=== PATIENT | female | born 1960 | race Two or more races ===

== ENCOUNTER 2020-03-18 12:44 | Outpatient (REF) | payer OTHER, SELFPAY | END 2020-03-18 12:45 | disposition home or self-care (01) | LOC: HO.LAB 12:44 | PROVIDERS: PCP Internal Medicine; Visit Provider Internal Medicine | DX: Z20.828 Contact with and (suspected) exposure to other viral communicable diseases (principal) | CPT/HCPCS: 36415; 87635 ==

== ENCOUNTER 2020-03-29 10:34 | Outpatient (REF) | payer OTHER, SELFPAY ==
[2020-03-29 11:27] LABS: MANUAL DIFF FLAG NO
[2020-03-29 11:30] LABS: Basophils Percent Auto 0.6 % (0-2); Eosinophils Absolute Auto 0.1 X10*3/uL (0.0-0.4); Eosinophils Percent Auto 1.7 % (0-4); Hematocrit 41.2 % (37-47); Hemoglobin 14.2 g/dl (12.0-16.0); Imm Gran Abs Auto 0.02 X10*3/uL (0.00-0.03); Imm Gran Pct Auto 0.3 % (0.0-0.4); Lymphocytes Absolute Auto 2.4 X10*3/uL (1.2-4.9); Lymphocytes Percent Auto 36.9 % (20-40); Mean Corpuscular HGB Conc 34.5 g/dl (31.0-35.0); Mean Corpuscular Hemoglobin 30.7 pg (27.0-33.0); Mean Corpuscular Volume 89.2 fL (80-98); Mean Platelet Volume 11.4 fL (9.4-12.3); Monocytes Absolute Auto 0.3 X10*3/uL (0.1-1.2); Monocytes Percent Auto 5.2 % (2-11); Neutrophils Absolute Auto 3.6 X10*3/uL (2.0-8.3); Neutrophils Percent Auto 55.3 % (45-73); Platelet Count 300 X10*3/uL (160-400); Red Blood Count 4.62 X10*6/uL (4.20-5.50); Red Cell Distribution Width 12.5 % (11.0-16.0); White Blood Count 6.6 X10*3/uL (4.8-10.8)
[2020-03-29 11:50] LABS: Estimated Average Glucose 105 mg/dL; Hemoglobin A1C 126.7674 umol/L; Hemoglobin A1c % 5.3 %
[2020-03-29 11:53] LABS: Alanine Aminotransferase 17 U/L (0-31); Albumin Level 4.6 g/dL (3.5-5.0); Alkaline Phosphatase 79 U/L (39-117); Anion Gap 13 (12-20); Aspartate Amino Transferase 15 U/L (5-31); Bilirubin Total 0.6 mg/dL (0.0-1.0); Blood Urea Nitrogen 14 mg/dL (9-16); Calcium 9.5 mg/dL (8.4-10.2); Carbon Dioxide 24 mmol/L (22-29); Chloride 107 mmol/L (96-108); Cholesterol 199 mg/dL; Estimated Glomerular Filt Rate > 60; Glucose Fasting 101 mg/dL (60-99); HDL Cholesterol 46 mg/dL; LDL Cholesterol Calculated 120 mg/dl; Potassium 4.1 mmol/l (3.3-5.1); Sodium 140 mmol/L (135-145); Total Protein 7.5 g/dL (6.5-8.0); Triglycerides 166 mg/dL
[2020-03-29 12:14] LABS: T4 Thyroxine 5.8 ug/dL (4.5-12.0); Thyroid Stimulating Hormone 3.33 mIU/mL (0.32-4.0)
[2020-03-29 18:23] LABS: Folate 9.5 ng/mL (> or = 4.0); Vitamin B12 286 pg/mL (200-900)
== END 2020-03-29 10:35 | disposition home or self-care (01) ==
LOC: HO.LAB 10:34
PROVIDERS: PCP Internal Medicine; Visit Provider Internal Medicine
DX: Z00.00 Encounter for general adult medical examination without abnormal findings (principal); E66.9 Obesity, unspecified; J45.909 Unspecified asthma, uncomplicated; F32.9 Major depressive disorder, single episode, unspecified; R73.01 Impaired fasting glucose; E78.00 Pure hypercholesterolemia, unspecified; G25.0 Essential tremor
CPT/HCPCS: 36415; 80053; 80061; 82306; 82607; 82746; 83036; 84436; 84443; 85025

== ENCOUNTER 2020-04-20 16:53 | Outpatient (REF) | payer OTHER, SELFPAY ==
--- NOTE | 2020-04-20 | MM_ITS ---
EXAMINATION: MM SCREENING DIGITAL BREAST TOMOSYNTHESIS, BILATERAL CLINICAL INFORMATION: Screening. Asymptomatic. The lifetime risk of breast cancer based on the Tyrer-Cuzick Model is 6.8%. COMPARISON: Mammography: September 04, 2018 and studies dating back to April 20, 2014 TECHNIQUE: Digital breast tomosynthesis is performed in both the craniocaudal and mediolateral oblique views along with computer-aided detection (CAD). Synthesized 2D images are generated from the tomosynthesis. FINDINGS: The breasts are almost entirely fatty (ACR BI-RADS breast composition Category a). There are no significant masses, abnormal calcifications, or other abnormalities. MM/MM tomosynthesis screening BI IMPRESSION: There are no significant changes from prior study. ASSESSMENT: BI-RADS 1: Negative RECOMMENDATION: Routine annual mammography screening. This patient's information was entered into a reminder system with a target due date for their next mammogram.
== END 2020-04-20 16:54 | disposition home or self-care (01) ==
LOC: HO.MAMMO 16:53
PROVIDERS: Visit Provider Internal Medicine
DX: Z12.31 Encounter for screening mammogram for malignant neoplasm of breast (principal)
CPT/HCPCS: 77063; 77067

== ENCOUNTER 2020-07-14 13:03 | Outpatient (REF) | payer OTHER, SELFPAY | END 2020-07-14 13:04 | disposition home or self-care (01) | LOC: HO.LAB 13:03 | PROVIDERS: Visit Provider Internal Medicine | DX: Z20.822 Contact with and (suspected) exposure to COVID-19 (principal) | CPT/HCPCS: 36415; C9803; U0003 ==

== ENCOUNTER 2020-09-29 13:18 | Outpatient (REF) | payer OTHER, SELFPAY | END 2020-09-29 13:19 | disposition home or self-care (01) | LOC: HO.LAB 13:18 | PROVIDERS: Visit Provider Internal Medicine | DX: Z20.822 Contact with and (suspected) exposure to COVID-19 (principal) | CPT/HCPCS: C9803; U0003; U0005 ==

== ENCOUNTER 2021-04-25 11:16 | Outpatient (REF) | payer OTHER, SELFPAY ==
--- NOTE | ~2021-04-25 | XR_ITS ---
EXAMINATION: XR KNEE, LEFT CLINICAL INFORMATION: Left knee pain. COMPARISON: Upright frontal views of both knees and patellofemoral view of the left knee done on 12/18/2019. TECHNIQUE: Two views of the left knee. FINDINGS: The bony alignments are intact. The cortices are intact. No significant joint space narrowing is noted at the medial and lateral compartment. Mild marginal osteophyte formation is noted at the superior pole of the patella consistent with mild osteoarthrosis. No evidence of any joint effusion. The soft tissues are remarkable for multiple radiopaque foreign bodies, similar to prior study. XR/XR knee LT 2V IMPRESSION: Mild patellofemoral osteoarthrosis. No significant change since 12/18/2019.
== END 2021-04-25 11:17 | disposition home or self-care (01) ==
LOC: HO.XRAY 11:16
PROVIDERS: PCP Internal Medicine; Visit Provider Internal Medicine
DX: M25.562 Pain in left knee (principal)
CPT/HCPCS: 73560

== ENCOUNTER 2021-04-27 07:28 | Outpatient (REF) | payer OTHER, SELFPAY ==
--- NOTE | ~2021-04-27 | MM_ITS ---
EXAMINATION: MM SCREENING DIGITAL BREAST TOMOSYNTHESIS, BILATERAL CLINICAL INFORMATION: Screening. Asymptomatic. The lifetime risk of breast cancer based on the Tyrer-Cuzick Model is 6%. COMPARISON: Mammography: 04/20/2020, 09/04/2018, 08/16/2017 TECHNIQUE: Digital breast tomosynthesis is performed in both the craniocaudal and mediolateral oblique views along with computer-aided detection (CAD). Synthesized 2D images are generated from the tomosynthesis. FINDINGS: There are scattered areas of fibroglandular density (ACR BI-RADS breast composition Category b). There are no significant masses, abnormal calcifications, or other abnormalities. Parenchymal pattern is similar to prior studies. No developing density. The axilla and skin contours are unremarkable. MM/MM tomosynthesis screening BI IMPRESSION: No mammographic evidence of malignancy. ASSESSMENT: BI-RADS 1: Negative RECOMMENDATION: Routine annual mammography screening. This patient's information was entered into a reminder system with a target due date for their next mammogram.
[2021-04-27 07:47] LABS: MANUAL DIFF FLAG NO
[2021-04-27 08:29] LABS: Basophils Percent Auto 0.5 % (0-2); Eosinophils Absolute Auto 0.2 X10*3/uL (0.0-0.4); Eosinophils Percent Auto 3.5 % (0-4); Hematocrit 40.9 % (37.0-47.0); Imm Gran Abs Auto 0.02 X10*3/uL (0.00-0.03); Imm Gran Pct Auto 0.3 % (0.0-0.4); Lymphocytes Absolute Auto 2.4 X10*3/uL (1.2-4.9); Lymphocytes Percent Auto 37.4 % (20-40); Mean Corpuscular HGB Conc 34.2 g/dl (31.0-35.0); Mean Corpuscular Hemoglobin 30.5 pg (27.0-33.0); Mean Corpuscular Volume 89.1 fL (80.0-98.0); Mean Platelet Volume 10.9 fL (9.4-12.3); Monocytes Absolute Auto 0.4 X10*3/uL (0.1-1.2); Monocytes Percent Auto 5.9 % (2-11); Neutrophils Absolute Auto 3.4 x10*3/uL (2.0-8.3); Neutrophils Percent Auto 52.4 % (45-73); Platelet Count 306 X10*3/uL (160-400); Red Blood Count 4.59 X10*6/uL (4.20-5.50); Red Cell Distribution Width 12.6 % (11.0-16.0); White Blood Count 6.5 X10*3/uL (4.8-10.8)
[2021-04-27 08:52] LABS: Alanine Aminotransferase 26 U/L (0-31); Albumin Level 4.3 g/dL (3.5-5.0); Alkaline Phosphatase 79 U/L (39-117); Anion Gap 11 (12-20); Aspartate Amino Transferase 18 U/L (5-31); Bilirubin Total 0.7 mg/dL (0.0-1.0); Blood Urea Nitrogen 11 mg/dL (9-16); Calcium 9.3 mg/dL (8.4-10.2); Carbon Dioxide 24 mmol/L (22-29); Chloride 110 mmol/L (96-108); Cholesterol 181 mg/dL; Estimated Glomerular Filt Rate > 60; Glucose Random 127 mg/dL (60-115); HDL Cholesterol 36 mg/dL; LDL Cholesterol Calculated 116 mg/dl; Potassium 4.2 mmol/L (3.3-5.1); Sodium 141 mmol/L (135-145); Total Protein 7.5 g/dL (6.5-8.0); Triglycerides 147 mg/dL
[2021-04-27 09:03] LABS: Estimated Average Glucose 108 mg/dL; Hemoglobin A1c % 5.4 %
[2021-04-27 09:15] LABS: Free T4 (Free Thyroxine) 0.94 ng/dL (0.71-1.85); Vitamin D 25-OH Total 13.5 ng/mL (>30)
[2021-04-27 09:30] LABS: Folate 10.9 ng/mL (> or = 4.0); Vitamin B12 277 pg/mL (200-900)
== END 2021-04-27 07:29 | disposition home or self-care (01) ==
LOC: HO.MAMMO 07:28
PROVIDERS: PCP Internal Medicine; Visit Provider Internal Medicine
DX: Z12.31 Encounter for screening mammogram for malignant neoplasm of breast (principal); E78.00 Pure hypercholesterolemia, unspecified; R73.02 Impaired glucose tolerance (oral)
CPT/HCPCS: 36415; 77063; 77067; 80053; 80061; 82306; 82607; 82746; 83036; 84439; 84443; 85025

== ENCOUNTER → 2021-05-05 12:14 | Outpatient (BNVA) | payer OTHER, SELFPAY | PROVIDERS: PCP Internal Medicine; Visit Provider Orthopaedic Surgery | DX: M25.562 Pain in left knee (principal) | CPT/HCPCS: 20610; 99212; J1100 ==

== ENCOUNTER 2021-08-05 08:54 | Outpatient (REF) | payer OTHER, SELFPAY ==
--- NOTE | ~2021-08-05 | XR_ITS ---
EXAMINATION: XR RIBS, LEFT CLINICAL INFORMATION: Chest pain COMPARISON: Chest x-ray of October 31, 2018 TECHNIQUE: PA chest and 4 view left ribs. FINDINGS: There is no evidence of acute parenchymal disease, pneumothorax, or pleural effusion. Heart normal size. No evidence of pulmonary edema. There is no evidence of an acute displaced left rib fracture. No lytic or sclerotic lesions are identified. XR/XR ribs LT min 3V w CXR1V IMPRESSION: No acute parenchymal disease within the chest. No acute displaced left rib fracture or destructive bony lesion.
== END 2021-08-05 08:55 | disposition home or self-care (01) ==
LOC: HO.XRAY 08:54
PROVIDERS: PCP Internal Medicine; Visit Provider Internal Medicine
DX: R07.9 Chest pain, unspecified (principal)
CPT/HCPCS: 71101

== ENCOUNTER → 2021-08-22 09:29 | Outpatient (BNVA) | payer OTHER, SELFPAY | PROVIDERS: PCP Internal Medicine; Visit Provider Physician Assistant | DX: M17.12 Unilateral primary osteoarthritis, left knee (principal); M25.562 Pain in left knee | CPT/HCPCS: 20610; 99212; J1020 ==

== ENCOUNTER → 2021-12-01 11:09 | Outpatient (BNVA) | payer OTHER, SELFPAY | PROVIDERS: PCP Internal Medicine; Referring Provider Internal Medicine; Visit Provider Physician Assistant | DX: Z12.11 Encounter for screening for malignant neoplasm of colon (principal); Z79.899 Other long term (current) drug therapy | CPT/HCPCS: 99202; 99212 ==

== ENCOUNTER 2022-01-26 12:21 | Outpatient (REF) | payer OTHER, SELFPAY ==
--- NOTE | ~2022-01-26 | XR_ITS ---
EXAMINATION: XR HAND WRIST LEFT CLINICAL INFORMATION: Pain of the left wrist COMPARISON: None TECHNIQUE: Left hand and wrist, 4 views FINDINGS: Bones have normal alignment with hand and wrist. No fracture or subluxation. No focal soft tissue swelling. There appears to be negligible osteophyte formation and small ossicle of the first carpometacarpal joint. Small osteophytes are present at the mildly degenerated index finger metacarpophalangeal joint joint. Otherwise, the metacarpophalangeal and proximal interphalangeal joints are unremarkable. There are very small osteophytes at multiple distal interphalangeal joints. No erosions or periostitis. XR/XR hand wrist LT IMPRESSION: * No acute osseous injury in the left hand or wrist. * Mild osteoarthrosis at several joints, including thumb interphalangeal joint, index finger MCP joint and multiple DIP joints. No evidence of an inflammatory arthropathy.
== END 2022-01-26 12:22 | disposition home or self-care (01) ==
LOC: HO.XRAY 12:21
PROVIDERS: PCP Internal Medicine; Visit Provider Internal Medicine
DX: M25.532 Pain in left wrist (principal); M72.2 Plantar fascial fibromatosis
CPT/HCPCS: 73110; 73130

== ENCOUNTER 2022-04-12 08:30 | Outpatient (REF) | payer OTHER, SELFPAY ==
[2022-04-12 08:40] LABS: MANUAL DIFF FLAG NO
[2022-04-12 09:04] LABS: Basophils Percent Auto 0.5 % (0-2); Eosinophils Absolute Auto 0.1 X10*3/uL (0.0-0.4); Hematocrit 40.8 % (37.0-47.0); Hemoglobin 14.1 g/dl (12.0-16.0); Imm Gran Abs Auto 0.03 X10*3/uL (0.00-0.03); Imm Gran Pct Auto 0.4 % (0.0-0.4); Lymphocytes Absolute Auto 2.8 X10*3/uL (1.2-4.9); Lymphocytes Percent Auto 35.2 % (20-40); Mean Corpuscular HGB Conc 34.6 g/dl (31.0-35.0); Mean Corpuscular Hemoglobin 30.3 pg (27.0-33.0); Mean Corpuscular Volume 87.7 fL (80.0-98.0); Mean Platelet Volume 10.6 fL (9.4-12.3); Monocytes Absolute Auto 0.5 X10*3/uL (0.1-1.2); Monocytes Percent Auto 5.9 % (2-11); Neutrophils Absolute Auto 4.5 x10*3/uL (2.0-8.3); Platelet Count 324 X10*3/uL (160-400); Red Blood Count 4.65 X10*6/uL (4.20-5.50); White Blood Count 7.9 X10*3/uL (4.8-10.8)
[2022-04-12 09:08] LABS: Estimated Average Glucose 105 mg/dL; Hemoglobin A1c % 5.3 %
[2022-04-12 09:32] LABS: Alanine Aminotransferase 12 U/L (0-31); Albumin Level 4.5 g/dL (3.5-5.0); Alkaline Phosphatase 79 U/L (39-117); Anion Gap 14 (12-20); Aspartate Amino Transferase 14 U/L (5-31); Bilirubin Total 0.6 mg/dL (0.0-1.0); Blood Urea Nitrogen 13 mg/dL (9-16); Calcium 9.4 mg/dL (8.4-10.2); Carbon Dioxide 24 mmol/L (22-29); Chloride 107 mmol/L (96-108); Cholesterol 206 mg/dL; Estimated Glomerular Filt Rate > 60; Glucose Random 115 mg/dL (60-115); HDL Cholesterol 44 mg/dL; LDL Cholesterol Calculated 125 mg/dl; Potassium 4.2 mmol/L (3.3-5.1); Sodium 141 mmol/L (135-145); Total Protein 7.6 g/dL (6.5-8.0); Triglycerides 187 mg/dL
[2022-04-12 09:48] LABS: Free T4 (Free Thyroxine) 0.99 ng/dL (0.71-1.85); Vitamin D 25-OH Total 12.9 ng/mL (>30)
[2022-04-12 10:38] LABS: Folate 11.7 ng/mL (> or = 4.0); Vitamin B12 214 pg/mL (200-900)
== END 2022-04-12 08:31 | disposition home or self-care (01) ==
LOC: HO.LAB 08:30
PROVIDERS: PCP Internal Medicine; Visit Provider Internal Medicine
DX: R73.02 Impaired glucose tolerance (oral) (principal); E55.9 Vitamin D deficiency, unspecified; K21.9 Gastro-esophageal reflux disease without esophagitis; E78.00 Pure hypercholesterolemia, unspecified
CPT/HCPCS: 36415; 80053; 80061; 82306; 82607; 82746; 83036; 84439; 84443; 85025

== ENCOUNTER 2022-04-17 07:48 | Day surgery (SDC) | payer OTHER, SELFPAY ==
[2022-04-12 15:10] VITALS: BMI 33.5
[2022-04-17 08:32] VITALS: BP 127/71; PULSE 59; RESP 16; TEMP 36.2; O2SAT 98
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
--- NOTE | 2022-04-17 08:36 | PM.OP ---
Brief Operative Note Date of Service: 04/17/22 Pre-op diagnosis: Colon cancer screening, intermittent diarrhea and rectal bleeding Family history of colon cancer (Mother-mat aunt and uncle- colon cancer- unknown age or details-this is unclear) Post-op diagnosis: other (Colon polyps, diverticulosis, hemorrhoids) Procedure: COLONOSCOPY TO CECUM WITH BIOPSIES AND SNARE POLYPECTOMY Surgeon: Ambrosio Diaz MD Anesthesia: MAC Was an Head Of Commission Department used for this Procedure?: Yes Head Of Commission Department: Rgio Lazo Estimated blood loss (mL): 0 Pathology: other (A) BX Right Colon (R/O Microscopic Colitis) B) BX Left Colon (R/O Microscopic Colitis) C) Polyp Sigmoid Colon D) Polyps Sigmoid Colon 18cm) Condition: stable Disposition: PACU
--- NOTE | 2022-04-17 08:37 | W.PM.OPN ---
Operative Note Operative Note Date of Service: 04/17/22 Narrative: Pre-op diagnosis: Colon cancer screening, intermittent diarrhea and rectal bleeding Family history of colon cancer (Mother-mat aunt and uncle- colon cancer- unknown age or details-this is unclear) Post-op diagnosis:?other (Colon polyps, diverticulosis, hemorrhoids) Surgeon: Ambrosio Diaz MD Anesthesia:?MAC COLONOSCOPY TILL CECUM WITH BIOPSIES AND SNARE POLYPECTOMY Consent: Indications for the procedure and potential complications of bleeding, perforation, reaction to medications and missed diagnosis were discussed with the patient and informed consent was obtained. Instrument: Olympus PCF H 190 L variable stiffness pediatric colonoscope Monitoring: Vital signs and clinical assessment, intermittent blood pressure monitoring, continuous EKG monitoring, Pulse oximetry and Carbon Dioxide monitoring were done throughout the procedure. Colon withdrawl time was 25 minutes. Procedure: The patient was placed in the left lateral decubitis position and pre-procedure medications were administered. After a digital rectal examination of the ano-rectum, the video colonoscope was inserted into the rectum and advanced through the colon to the cecum. The colonoscope was slowly withdrawn in a retrograde panoramic fashion and the colon mucosa was carefully examined including a retroflexed view of the rectum. Findings and interventions are described below. Procedure Difficulty: Without difficulty Findings: Terminal Ileum: Not evaluated Cecum: Normal Ascending Colon: Normal Transverse Colon: Normal Descending Colon: Moderate diverticulosis Sigmoid Colon: A 10 mm sessile polyp removed with a cold snare. Two 12-15 mm sessile polyps at 18 cms removed with a hot snare. Moderate diverticulosis Rectum: Normal Ano-rectum: Moderate internal hemorrhoids Colon preparation: Good after copious irrigation and fair in the left colon due to adherent stools which could not be flushed off. No large lesion seen, flat and small polyps could be missed. Impression and Post Procedure Diagnosis: Colonoscopy Findings: Three medium sized polyps removed. Random biopsies were obtained from right and left colon to check for microscopic colitis. Moderate diverticulosis seen in the left colon Moderate hemorrhoids on retroflexed exam. Plan: Await pathology results Patient has an appointment on 05/01/22 in the GI Clinic with MEGHA Verdin. Repeat Colonoscopy interval based on path results - in 3 years if polyps are adenomatous and due to fair prep. Above findings were reviewed with the patient and colon polyps and diverticulosis handouts were given in the discharge area
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
[2022-04-17 10:10] VITALS: BP 92/54; PULSE 64; RESP 16; TEMP 36.1; O2SAT 95
[2022-04-17 10:25] VITALS: BP 113/67; PULSE 70; RESP 18; TEMP 36.3; O2SAT 97
[2022-04-17 10:37] VITALS: BP 125/73; PULSE 60; RESP 18; TEMP 36.1; O2SAT 97
== END 2022-04-17 11:22 | disposition home or self-care (01) ==
PROVIDERS: PCP Internal Medicine; Visit Provider Internal Medicine Gastroenterology
PROC: 0DJD8ZZ Inspection of Lower Intestinal Tract, Via Natural or Artificial Opening Endoscopic (ICD-10-PCS; CPT 45378; principal; 2022-04-17 09:20)
DX: Z12.11 Encounter for screening for malignant neoplasm of colon (principal); Z80.0 Family history of malignant neoplasm of digestive organs; D12.5 Benign neoplasm of sigmoid colon; K57.30 Diverticulosis of large intestine without perforation or abscess without bleeding; K64.8 Other hemorrhoids; M79.7 Fibromyalgia; G25.0 Essential tremor; G62.9 Polyneuropathy, unspecified; F20.9 Schizophrenia, unspecified; Z79.51 Long term (current) use of inhaled steroids; Z79.899 Other long term (current) drug therapy; Z87.891 Personal history of nicotine dependence
CPT/HCPCS: 45385; 45380; 88305

== ENCOUNTER → 2022-05-01 10:45 | Outpatient (BNVA) | payer OTHER, SELFPAY | PROVIDERS: PCP Internal Medicine; Visit Provider Physician Assistant | DX: K57.30 Diverticulosis of large intestine without perforation or abscess without bleeding (principal); D36.9 Benign neoplasm, unspecified site | CPT/HCPCS: 99212 ==

== ENCOUNTER 2022-05-15 07:18 | Outpatient (REF) | payer OTHER, SELFPAY ==
--- NOTE | ~2022-05-15 | MM_ITS ---
EXAMINATION: MM SCREENING DIGITAL BREAST TOMOSYNTHESIS, BILATERAL CLINICAL INFORMATION: Screening. Asymptomatic. The lifetime risk of breast cancer based on the Tyrer-Cuzick Model is 7%. COMPARISON: Mammography: 04/27/2021, 04/20/2020, 09/04/2018 TECHNIQUE: Digital breast tomosynthesis is performed in both the craniocaudal and mediolateral oblique views along with computer-aided detection (CAD). Synthesized 2D images are generated from the tomosynthesis. FINDINGS: There are scattered areas of fibroglandular density (ACR BI-RADS breast composition Category b). There are no significant masses, abnormal calcifications, or other abnormalities. Parenchymal pattern is similar to prior studies. There is no developing density or architectural abnormality. The axilla and skin contours are unremarkable. No significant changes. MM/MM tomosynthesis screening BI IMPRESSION: No mammographic evidence of malignancy. ASSESSMENT: BI-RADS 1: Negative RECOMMENDATION: Routine annual mammography screening. This patient's information was entered into a reminder system with a target due date for their next mammogram.
== END 2022-05-15 07:19 | disposition home or self-care (01) ==
LOC: HO.MAMMO 07:18
PROVIDERS: PCP Internal Medicine; Visit Provider Internal Medicine
DX: Z12.31 Encounter for screening mammogram for malignant neoplasm of breast (principal)
CPT/HCPCS: 77063; 77067

== ENCOUNTER 2022-07-26 08:31 | Outpatient (REF) | payer OTHER, SELFPAY ==
[2022-07-26 10:43] LABS: Folate 12.6 ng/mL (> or = 4.0); Vitamin B12 344 pg/mL (200-900)
[2022-07-31 21:08] LABS: Intrinsic Factor Antibodies Negative (Negative)
[2022-08-01 12:38] LABS: Parietal Cell Antibody 21.9 Unit (<=20.0)
== END 2022-07-26 08:32 | disposition home or self-care (01) ==
LOC: HO.LAB 08:31
PROVIDERS: PCP Internal Medicine; Visit Provider Internal Medicine
DX: E53.8 Deficiency of other specified B group vitamins (principal)
CPT/HCPCS: 36415; 82607; 82746; 83516; 86340

== ENCOUNTER 2022-08-14 18:32 | Outpatient (REF) | payer OTHER, SELFPAY ==
[2022-08-15 05:31] LABS: CT PCR NOT DETECTED (Not Detect.); NG PCR NOT DETECTED (Not Detect.)
[2022-08-15 12:30] LABS: BV Int Neg Control Negative (Negative); BV Int Pos Control Positive (Positive)
== END 2022-08-14 18:33 | disposition home or self-care (01) ==
LOC: HO.LAB 18:32
PROVIDERS: Visit Provider Internal Medicine
DX: Z11.3 Encounter for screening for infections with a predominantly sexual mode of transmission (principal); L70.0 Acne vulgaris
CPT/HCPCS: 0353U; 87480; 87510; 87660

== ENCOUNTER 2022-08-14 18:32 | Outpatient (REF) | payer OTHER, SELFPAY ==
[2022-08-18 00:38] LABS: HPV 16 RNA NOT DETECTED (NOT DETECTED); HPV mRNA E6/E7 rflx Detected (Not Detected)
== END 2022-08-14 18:33 | disposition home or self-care (01) ==
LOC: HO.LNP 18:32
PROVIDERS: Visit Provider Internal Medicine
DX: Z01.419 Encounter for gynecological examination (general) (routine) without abnormal findings (principal); Z11.51 Encounter for screening for human papillomavirus (HPV)
CPT/HCPCS: 87624; 87625; 88142

== ENCOUNTER → 2022-09-01 09:28 | Outpatient (BNVA) | payer OTHER, SELFPAY | PROVIDERS: PCP Internal Medicine; Visit Provider Surgery | DX: L72.0 Epidermal cyst (principal) | CPT/HCPCS: 99202 ==

== ENCOUNTER 2022-09-22 09:59 | Outpatient (REF) | payer OTHER, SELFPAY | END 2022-09-22 10:00 | disposition home or self-care (01) | LOC: HO.LNP 09:59 | PROVIDERS: PCP Internal Medicine; Visit Provider Surgery | DX: L72.0 Epidermal cyst (principal); N60.82 Other benign mammary dysplasias of left breast; Z79.899 Other long term (current) drug therapy | CPT/HCPCS: 11402; 88304 ==

== ENCOUNTER → 2022-09-29 10:05 | Outpatient (BNVA) | payer OTHER, SELFPAY | PROVIDERS: PCP Internal Medicine; Visit Provider Surgery | DX: L72.0 Epidermal cyst (principal) | CPT/HCPCS: 99212 ==

== ENCOUNTER 2022-10-11 11:05 | Outpatient (REF) | payer OTHER, SELFPAY | END 2022-10-11 11:06 | disposition home or self-care (01) | LOC: HO.LNP 11:05 | PROVIDERS: PCP Internal Medicine; Visit Provider Obstetrics & Gynecology | DX: R87.610 Atypical squamous cells of undetermined significance on cytologic smear of cervix (ASC-US) (principal); R87.810 Cervical high risk human papillomavirus (HPV) DNA test positive | CPT/HCPCS: 57454; 88305 ==

== ENCOUNTER → 2022-11-02 10:02 | Outpatient (BNVA) | payer OTHER, SELFPAY | PROVIDERS: PCP Internal Medicine; Visit Provider Obstetrics & Gynecology | DX: R87.610 Atypical squamous cells of undetermined significance on cytologic smear of cervix (ASC-US) (principal); R87.810 Cervical high risk human papillomavirus (HPV) DNA test positive; Z98.890 Other specified postprocedural states | CPT/HCPCS: 99212 ==

== ENCOUNTER 2023-01-11 09:50 | Outpatient (AMB) | payer OTHER, SELFPAY ==
--- NOTE | 2023-01-11 10:10 | AM.OFFVISNUR ---
Intake Intake Visit Reasons: B12 Shot Allergies Fruits Allergy (Unknown, Uncoded 11/02/22 10:34) anaphylaxis Office Meds cyanocobalamin (vitamin B-12) Performing Provider: Viky Kaur MD Administered by: Eugenia Monsivais RN on 01/11/23 10:10 Dose Route Admin Location Lot Number Expiration Date NDC Muffler Mechanic 1,000 mcg IM right deltoid [id number] 08/15/24 15388-273-28 RIVS Coding Diagnoses Assessment & Plan Assessment & Plan Orders: Orders AMB Vitamin B12 Injection Patient Supplied Today E53.8 - Deficiency of other specified B group vitamins
== END 2023-01-11 10:11 | disposition home or self-care (01) ==
PROVIDERS: PCP Internal Medicine; Visit Provider Internal Medicine
DX: E53.8 Deficiency of other specified B group vitamins (principal)
CPT/HCPCS: 96372; J3420

== ENCOUNTER 2023-02-12 09:22 | Outpatient (AMB) | payer OTHER, SELFPAY ==
--- NOTE | 2023-02-12 11:21 | AM.OFFVISNUR ---
Intake Intake Visit Reasons: B12 Shot Allergies Fruits Allergy (Unknown, Uncoded 02/12/23 09:54) anaphylaxis Office Meds cyanocobalamin (vitamin B-12) Performing Provider: Viky Kaur MD Administered by: Eugenia Monsivais RN on 02/12/23 11:21 Dose Route Admin Location Lot Number Expiration Date NDC Door Captain 1,000 mcg IM right deltoid [id number] 08/15/24 23936-496-16 Stance Coding Diagnoses Assessment & Plan Assessment & Plan Orders: Orders AMB Vitamin B12 Injection Patient Supplied Today E53.8 - Deficiency of other specified B group vitamins
== END 2023-02-12 12:54 | disposition home or self-care (01) ==
PROVIDERS: PCP Internal Medicine; Visit Provider Internal Medicine
DX: E53.8 Deficiency of other specified B group vitamins (principal)
CPT/HCPCS: 96372; J3420

== ENCOUNTER 2023-02-27 11:11 | Outpatient (AMB) | payer OTHER, SELFPAY ==
[2023-02-27 11:18] VITALS: BP 140/80; PULSE 77; O2SAT 98; BMI 33.8
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
== END 2023-02-27 12:31 | disposition home or self-care (01) ==
PROVIDERS: PCP Internal Medicine; Visit Provider Internal Medicine
DX: J45.909 Unspecified asthma, uncomplicated (principal); E78.00 Pure hypercholesterolemia, unspecified; K21.9 Gastro-esophageal reflux disease without esophagitis; L20.9 Atopic dermatitis, unspecified; R03.0 Elevated blood-pressure reading, without diagnosis of hypertension
CPT/HCPCS: 99214

== ENCOUNTER 2023-03-15 09:25 | Outpatient (AMB) | payer OTHER, SELFPAY ==
--- NOTE | 2023-03-15 09:32 | AM.OFFVISNUR ---
Intake Intake Visit Reasons: B12 Shot Allergies Fruits Allergy (Unknown, Uncoded 02/27/23 11:19) anaphylaxis Office Meds cyanocobalamin (vitamin B-12) 1,000 mcg/mL injection solution Performing Provider: Viky Kaur MD Performing Location[place] [facility] [place] [facility] Administered by: Akua Anthony RN on 03/15/23 09:32 Dose Route Admin Location Dispensed Lot Number Expiration Date NDC [place] 1,000 mcg IM right deltoid 1 mL [id number] 08/15/24 26960-092-92 [employer] Coding Assessment & Plan Assessment & Plan Orders: Orders AMB Vitamin B12 Injection Patient Supplied Today E53.8 - Deficiency of other specified B group vitamins
== END 2023-03-15 09:42 | disposition home or self-care (01) ==
PROVIDERS: PCP Internal Medicine; Visit Provider Internal Medicine
DX: E53.8 Deficiency of other specified B group vitamins (principal)
CPT/HCPCS: 96372; J3420

== ENCOUNTER 2023-04-05 08:36 | Outpatient (REF) | payer OTHER, SELFPAY ==
[2023-04-05 08:51] LABS: MANUAL DIFF FLAG NO
[2023-04-05 09:04] LABS: Basophils Percent Auto 0.4 % (0-2); Eosinophils Absolute Auto 0.1 X10*3/uL (0.0-0.4); Eosinophils Percent Auto 1.9 % (0-4); Hematocrit 40.6 % (37.0-47.0); Hemoglobin 14.3 g/dl (12.0-16.0); Imm Gran Abs Auto 0.02 X10*3/uL (0.00-0.03); Imm Gran Pct Auto 0.3 % (0.0-0.4); Lymphocytes Absolute Auto 2.7 X10*3/uL (1.2-4.9); Lymphocytes Percent Auto 39.8 % (20-40); Mean Corpuscular HGB Conc 35.2 g/dl (31.0-35.0); Mean Corpuscular Hemoglobin 31.2 pg (27.0-33.0); Mean Corpuscular Volume 88.5 fL (80.0-98.0); Mean Platelet Volume 10.1 fL (9.4-12.3); Monocytes Absolute Auto 0.4 X10*3/uL (0.1-1.2); Monocytes Percent Auto 5.2 % (2-11); Neutrophils Absolute Auto 3.5 x10*3/uL (2.0-8.3); Neutrophils Percent Auto 52.4 % (45-73); Platelet Count 278 X10*3/uL (160-400); Red Blood Count 4.59 X10*6/uL (4.20-5.50); Red Cell Distribution Width 12.8 % (11.0-16.0); White Blood Count 6.8 X10*3/uL (4.8-10.8)
[2023-04-05 09:13] LABS: Estimated Average Glucose 103 mg/dL; Hemoglobin A1c % 5.2 % (<6.0)
[2023-04-05 10:22] LABS: Alanine Aminotransferase 20 U/L (0-31); Albumin Level 4.2 g/dL (3.5-5.0); Alkaline Phosphatase 72 U/L (39-117); Anion Gap 13 (12-20); Aspartate Amino Transferase 16 U/L (5-31); Bilirubin Total 0.4 mg/dL (0.0-1.0); Blood Urea Nitrogen 10 mg/dL (9-16); Calcium 9.7 mg/dL (8.4-10.2); Carbon Dioxide 23 mmol/L (22-29); Chloride 109 mmol/L (96-108); Cholesterol 193 mg/dL (<200); Estimated Glomerular Filt Rate > 60; Glucose Random 117 mg/dL (60-115); HDL Cholesterol 42 mg/dL (>40); LDL Cholesterol Calculated 112 mg/dL (<100); Potassium 4.1 mmol/L (3.3-5.1); Sodium 141 mmol/L (135-145); Total Protein 7.7 g/dL (6.5-8.0); Triglycerides 195 mg/dL (<150)
[2023-04-05 10:44] LABS: Free T4 (Free Thyroxine) 0.86 ng/dL (0.71-1.85); Thyroid Stimulating Hormone 2.64 uIU/mL (0.32-4.0); Vitamin D 25-OH Total 16.5 ng/mL (>30)
[2023-04-05 10:49] LABS: Folate 11.4 ng/mL (> or = 4.0); Vitamin B12 435 pg/mL (200-900)
== END 2023-04-05 08:37 | disposition home or self-care (01) ==
LOC: HO.LAB 08:36
PROVIDERS: PCP Internal Medicine; Visit Provider Internal Medicine
DX: R73.02 Impaired glucose tolerance (oral) (principal); E78.00 Pure hypercholesterolemia, unspecified
CPT/HCPCS: 36415; 80053; 80061; 82306; 82607; 82746; 83036; 84439; 84443; 85025

== ENCOUNTER 2023-04-27 13:53 | Outpatient (AMB) | payer OTHER, SELFPAY ==
[2023-04-27 13:56] VITALS: BP 158/90; O2SAT 99; BMI 34.2
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
== END 2023-04-27 14:26 | disposition home or self-care (01) ==
PROVIDERS: PCP Internal Medicine; Visit Provider Internal Medicine
DX: R73.02 Impaired glucose tolerance (oral) (principal); F33.9 Major depressive disorder, recurrent, unspecified; E78.00 Pure hypercholesterolemia, unspecified; J45.909 Unspecified asthma, uncomplicated; K21.9 Gastro-esophageal reflux disease without esophagitis; E66.9 Obesity, unspecified; R03.0 Elevated blood-pressure reading, without diagnosis of hypertension; M77.10 Lateral epicondylitis, unspecified elbow; I10 Essential (primary) hypertension; D51.9 Vitamin B12 deficiency anemia, unspecified
CPT/HCPCS: 96372; 99214; J3420

== ENCOUNTER 2023-05-09 21:14 | Emergency (ER) | payer OTHER, SELFPAY ==
--- NOTE | 2023-05-09 | ECG_ITS ---
Test Reason : chest pain Blood Pressure : / mmHG Vent. Rate : 083 BPM Atrial Rate : 000 BPM P-R Int : 000 ms QRS Dur : 078 ms QT Int : 330 ms P-R-T Axes : 000 041 -40 degrees QTc Int : 387 ms Poor data quality Normal sinus rhythm Nonspecific T wave abnormality Abnormal ECG When compared with ECG of 23-NOV-2017 20:53, Nonspecific T wave abnormality now evident in Lateral leads Referred By: Generic ED Physician Electronically Signed By:ALON ROSENBAUM MD
--- NOTE | ~2023-05-09 | CT_ITS ---
EXAMINATION: CT ANGIOGRAM OF THE CHEST WITH AND WITHOUT CONTRAST (CT PULMONARY ANGIOGRAM FOR PE) CLINICAL INFORMATION: Reason for Exam CP, SOB COMPARISON: Chest x-ray 05/09/2023. TECHNIQUE: Prior to contrast administration, noncontrast localization images were obtained. Subsequently, multidetector volumetric imaging was performed from the thoracic inlet to below the diaphragms following the administration of 65 mL Omnipaque 350 intravenous contrast. No contrast reaction reported Sagittal, coronal, and MIP oblique sagittal reformatted images were obtained on the CT workstation, uploaded to PACS, and reviewed. This CT examination was performed using dose optimization techniques as appropriate, variously including the following: *Automated exposure control *Adjustment of mA and/or kV according to patient size (this includes techniques or standardized protocols for targeted exams where dose is matched to indication/reason for exam; i.e. extremities or head) *Use of iterative reconstruction technique Total exam dose-length product 292 mGy-cm FINDINGS: QUALITY OF STUDY/CONTRAST BOLUS: Satisfactory. PULMONARY ARTERIES: No filling defects are seen in the main, lobar, or segmental pulmonary arteries to suggest the presence of pulmonary emboli. THORACIC AORTA: No evidence of aortic aneurysm or dissection. LUNG: Minimal bibasilar atelectasis without additional consolidation. PLEURA: No pleural effusion or pneumothorax. MEDIASTINUM: The visualized thyroid gland is unremarkable. There are subcentimeter mediastinal lymph nodes within the range of normal variation. Cardiac size is within normal limits; no pericardial effusion. No evidence of septal bowing or right heart strain. CORONARY ARTERY CALCIFICATION: None visualized on this study. CHEST WALL/AXILLA: No axillary or internal mammary lymphadenopathy. OSSEOUS STRUCTURES: Scattered degenerative endplate changes in the spine. UPPER ABDOMEN: Unremarkable. No reflux of contrast into the hepatic veins to suggest elevated right heart pressures. CT/CT angio chest PE protocol IMPRESSION: No pulmonary embolus identified. VTE: negative.
--- NOTE | ~2023-05-09 | XR_ITS ---
EXAMINATION: XR CHEST CLINICAL INFORMATION: Chest pain COMPARISON: 08/05/2021 TECHNIQUE: 2 views of the chest were obtained. FINDINGS: The lungs are clear with no focal consolidation. No evidence of pneumothorax, pulmonary edema, or pleural effusions. The cardiomediastinal silhouette is unremarkable. No acute osseous findings. XR/XR chest 2V IMPRESSION: No acute cardiopulmonary findings.
[2023-05-09 21:20] VITALS: BP 186/97; PULSE 77; RESP 22; TEMP 37.3; O2SAT 98; BMI 33.7
[2023-05-09 21:36] LABS: MANUAL DIFF FLAG NO
[2023-05-09 21:38] VITALS: BP 187/94; PULSE 67; PULSE 68; RESP 17; O2SAT 98
[2023-05-09 21:45] LABS: Basophils Percent Auto 0.2 % (0-2); Eosinophils Absolute Auto 0.1 X10*3/uL (0.0-0.4); Eosinophils Percent Auto 1.2 % (0-4); Hematocrit 40.7 % (37.0-47.0); Hemoglobin 14.3 g/dl (12.0-16.0); Imm Gran Abs Auto 0.03 X10*3/uL (0.00-0.03); Imm Gran Pct Auto 0.3 % (0.0-0.4); Lymphocytes Absolute Auto 4.1 X10*3/uL (1.2-4.9); Lymphocytes Percent Auto 43.2 % (20-40); Mean Corpuscular HGB Conc 35.1 g/dl (31.0-35.0); Mean Corpuscular Hemoglobin 30.6 pg (27.0-33.0); Mean Corpuscular Volume 87.2 fL (80.0-98.0); Mean Platelet Volume 10.4 fL (9.4-12.3); Monocytes Absolute Auto 0.7 X10*3/uL (0.1-1.2); Monocytes Percent Auto 6.9 % (2-11); Neutrophils Absolute Auto 4.6 x10*3/uL (2.0-8.3); Neutrophils Percent Auto 48.2 % (45-73); Platelet Count 296 X10*3/uL (160-400); Red Blood Count 4.67 X10*6/uL (4.20-5.50); Red Cell Distribution Width 12.6 % (11.0-16.0); White Blood Count 9.5 X10*3/uL (4.8-10.8)
[2023-05-09 21:51] LABS: Alanine Aminotransferase 14 U/L (0-31); Albumin Level 4.5 g/dL (3.5-5.0); Alkaline Phosphatase 86 U/L (39-117); Anion Gap 14 (12-20); Aspartate Amino Transferase 15 U/L (5-31); Bilirubin Total 0.4 mg/dL (0.0-1.0); Blood Urea Nitrogen 10 mg/dL (9-16); Carbon Dioxide 22 mmol/L (22-29); Chloride 109 mmol/L (96-108); Creatinine Clr Calc Pharmacy 69.8; Estimated Glomerular Filt Rate > 60; Glucose Random 141 mg/dL (60-115); Potassium 3.5 mmol/L (3.3-5.1); Sodium 141 mmol/L (135-145); Total Protein 8.2 g/dL (6.5-8.0)
[2023-05-09 21:59] LABS: Troponin-I High Sensitivity < 2.7 ng/L (<3.5-17.0)
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
--- NOTE | 2023-05-09 22:57 | ECG_ITS ---
Test Reason : CHESTPAIN Blood Pressure : / mmHG Vent. Rate : 066 BPM Atrial Rate : 066 BPM P-R Int : 186 ms QRS Dur : 088 ms QT Int : 386 ms P-R-T Axes : 035 051 036 degrees QTc Int : 404 ms Normal sinus rhythm Normal ECG When compared with ECG of 09-MAY-2023 21:21, Sinus rhythm has replaced Junctional rhythm Nonspecific T wave abnormality no longer evident in Inferior leads Nonspecific T wave abnormality no longer evident in Lateral leads Referred By: Quynh Barger Electronically Signed By:ALON ROSENBAUM MD
[2023-05-09 23:10] VITALS: BP 176/91; PULSE 64; RESP 16
[2023-05-09] MEDS: Aspirin 81 MG TAB.CHEW 324 MG PO (23:10)
[2023-05-09] MEDS: Nitroglycerin 2 % Oint 1 GM Packet 1 INCH TRANSDERMA (23:10)
[2023-05-10 00:55] LABS: D Dimer High Sensitivity 501 NG/ML
[2023-05-10 01:06] LABS: Troponin-I High Sensitivity 5.5 ng/L (<3.5-17.0)
[2023-05-10] MEDS: 0.9 % Sodium Chloride 1,000 ML 999 ML IV (01:09)
[2023-05-10] MEDS: iohexoL 350 MG/ML 100 ML INFUS..BTL 65 ML IV (01:38)
--- NOTE | 2023-05-10 01:40 | PC.NURSE ---
renato [phone]
== END 2023-05-10 04:06 | disposition home or self-care (01) ==
PROVIDERS: Nurse Practitioner Family; Emergency Provider Emergency Medicine
DX: R07.9 Chest pain, unspecified (principal); I10 Essential (primary) hypertension; K59.00 Constipation, unspecified; E53.8 Deficiency of other specified B group vitamins; K21.9 Gastro-esophageal reflux disease without esophagitis; R06.02 Shortness of breath; J45.909 Unspecified asthma, uncomplicated; Z80.3 Family history of malignant neoplasm of breast
CPT/HCPCS: 36415; 71046; 71275; 80053; 84484; 85025; 85379; 93005; 96360; 99284; 99285; Q9967

== ENCOUNTER 2023-05-17 08:41 | Outpatient (REF) | payer OTHER, SELFPAY ==
--- NOTE | ~2023-05-17 | MM_ITS ---
EXAMINATION: MM SCREENING DIGITAL BREAST TOMOSYNTHESIS, BILATERAL CLINICAL INFORMATION: Screening. Asymptomatic. COMPARISON: Mammography: This study is compared with prior exams dating back to 2017. TECHNIQUE: Digital breast tomosynthesis is performed in both the craniocaudal and mediolateral oblique views along with computer-aided detection (CAD). Synthesized 2D images are generated from the tomosynthesis. FINDINGS: The breasts are almost entirely fatty (ACR BI-RADS breast composition Category a). There are no significant masses, abnormal calcifications, or other abnormalities. MM/MM tomosynthesis screening BI IMPRESSION: No mammographic evidence of malignancy. ASSESSMENT: BI-RADS BI-RADS 1 - Negative RECOMMENDATION: Routine annual mammography screening. 1 year F/U This examination should not preclude the clinical evaluation of a suspicious palpable abnormality. This patient's information was entered into a reminder system with a target due date for their next mammogram.
== END 2023-05-17 08:42 | disposition home or self-care (01) ==
LOC: HO.MAMMO 08:41
PROVIDERS: PCP Internal Medicine; Visit Provider Internal Medicine
DX: Z12.31 Encounter for screening mammogram for malignant neoplasm of breast (principal)
CPT/HCPCS: 77063; 77067

== ENCOUNTER → 2023-05-17 09:00 | Outpatient (BNV) | payer OTHER, SELFPAY | PROVIDERS: PCP Internal Medicine; Visit Provider Radiology Diagnostic Radiology | DX: Z12.31 Encounter for screening mammogram for malignant neoplasm of breast (principal) | CPT/HCPCS: 77063; 77067 ==

== ENCOUNTER 2023-05-28 09:27 | Outpatient (AMB) | payer OTHER, SELFPAY ==
--- NOTE | 2023-05-28 09:40 | AM.OFFVISNUR ---
Intake Intake Visit Reasons: B12 Shot Allergies Fruits Allergy (Unknown, Uncoded 02/27/23 11:19) anaphylaxis Office Meds cyanocobalamin (vitamin B-12) 1,000 mcg/mL injection solution Performing Provider: Viky Kaur MD [facility] [place] [facility] Administered by: Akua Anthony RN on 05/28/23 09:40 Dose Route Admin Location Dispensed Lot Number Expiration Date NDC Professor Of Surgery 1,000 mcg IM right deltoid 1 mL [id number] 09/14/24 04211-502-14 [employer] Coding Assessment & Plan Assessment & Plan Orders: Orders AMB Vitamin B12 Injection Patient Supplied Today E53.8 - Deficiency of other specified B group vitamins
== END 2023-05-28 09:39 | disposition home or self-care (01) ==
PROVIDERS: PCP Internal Medicine; Visit Provider Internal Medicine
DX: E53.8 Deficiency of other specified B group vitamins (principal)
CPT/HCPCS: 96372; J3420

== ENCOUNTER 2023-06-28 09:03 | Outpatient (AMB) | payer OTHER, SELFPAY ==
--- NOTE | 2023-06-28 09:13 | AM.OFFVISNUR ---
Intake Intake Visit Reasons: B12 Allergies Fruits Allergy (Unknown, Uncoded 02/27/23 11:19) anaphylaxis Office Meds cyanocobalamin (vitamin B-12) 1,000 mcg/mL injection solution Performing Provider: Viky Kaur MD [place] [facility] [place] [facility] [place] [facility] Administered by: Eugenia Monsivais RN on 06/28/23 09:19 Dose Route Admin Location Dispensed Lot Number Expiration Date NDC Learning Strategist 1,000 mcg IM right deltoid 1 mL [id number] 09/15/24 21778-660-79 [employer] Coding Assessment & Plan Assessment & Plan Orders: Orders AMB Vitamin B12 Injection Patient Supplied Today D51.9 - Vitamin B12 deficiency anemia, unspecified
== END 2023-06-28 09:20 | disposition home or self-care (01) ==
PROVIDERS: PCP Internal Medicine; Visit Provider Internal Medicine
DX: D51.9 Vitamin B12 deficiency anemia, unspecified (principal)
CPT/HCPCS: 96372; J3420

== ENCOUNTER → 2023-07-30 09:36 | Outpatient (AMB) | payer OTHER, SELFPAY ==
--- NOTE | 2023-07-30 10:08 | AM.OFFVISNUR ---
Intake Intake Visit Reasons: B12 Shot Allergies Fruits Allergy (Unknown, Uncoded 02/27/23 11:19) anaphylaxis Office Meds cyanocobalamin (vitamin B-12) 1,000 mcg/mL injection solution Performing Provider: Viky Kaur MD [facility] Administered by: Bird Ayala PA-C on 07/30/23 10:09 Dose Route Admin Location Dispensed Lot Number Expiration Date [facility] Center Receptionist 1,000 mcg IM 1 mL [id number] 08/16/24 19988-614-52 [employer] Coding Assessment & Plan Assessment & Plan Orders: Orders AMB Vitamin B12 Injection Patient Supplied Today E53.8 - Deficiency of other specified B group vitamins
== END ==
PROVIDERS: PCP Internal Medicine; Visit Provider Internal Medicine
DX: E53.8 Deficiency of other specified B group vitamins (principal)
CPT/HCPCS: 96372; J3420

== ENCOUNTER 2023-08-21 10:36 | Outpatient (AMB) | payer OTHER, SELFPAY ==
[2023-08-21 10:43] VITALS: BP 172/80; PULSE 78; O2SAT 98; BMI 34.0
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
== END 2023-08-21 11:59 | disposition home or self-care (01) ==
PROVIDERS: Visit Provider Internal Medicine
DX: Z00.00 Encounter for general adult medical examination without abnormal findings (principal); E66.9 Obesity, unspecified; Z68.34 Body mass index [BMI] 34.0-34.9, adult; K21.9 Gastro-esophageal reflux disease without esophagitis; E53.8 Deficiency of other specified B group vitamins; R73.02 Impaired glucose tolerance (oral); E78.00 Pure hypercholesterolemia, unspecified; J45.909 Unspecified asthma, uncomplicated; I10 Essential (primary) hypertension; R29.6 Repeated falls; G25.2 Other specified forms of tremor
CPT/HCPCS: 96372; 99396; J3420

== ENCOUNTER 2023-09-24 09:02 | Outpatient (AMB) | payer OTHER, SELFPAY ==
--- NOTE | 2023-09-24 11:46 | AM.OFFVISNUR ---
Intake Intake Visit Reasons: B12 Shot Allergies Fruits Allergy (Unknown, Uncoded 08/21/23 10:49) anaphylaxis Office Meds cyanocobalamin (vitamin B-12) 1,000 mcg/mL injection solution Performing Provider: Viky Kaur MD [place] [facility] [place] [facility] Administered by: Elmer Abbasi RN on 09/24/23 09:05 Dose Route Admin Location Dispensed Lot Number Expiration Date NDC Clerical Support Specialist 1,000 mcg IM right deltoid 1 mL [id number] 08/16/24 10572-982-41 [employer] Comments: consented for b12 and tolerated well. Coding Assessment & Plan Assessment & Plan Orders: Orders AMB Vitamin B12 Injection Patient Supplied Today E53.8 - Deficiency of other specified B group vitamins Medications: New cyanocobalamin (vitamin B-12) 1,000 mcg IM ONCE 1 mL 0RF E53.8 - Deficiency of other specified B group vitamins
== END 2023-09-24 09:10 | disposition home or self-care (01) ==
PROVIDERS: PCP Internal Medicine; Visit Provider Internal Medicine
DX: E53.8 Deficiency of other specified B group vitamins (principal)
CPT/HCPCS: 96372; J3420

== ENCOUNTER 2023-10-15 12:48 | Outpatient (REF) | payer OTHER, SELFPAY | END 2023-10-15 12:49 | disposition home or self-care (01) | LOC: HO.SH 12:48 | PROVIDERS: Visit Provider Internal Medicine | DX: Z01.118 Encounter for examination of ears and hearing with other abnormal findings (principal); H90.3 Sensorineural hearing loss, bilateral | CPT/HCPCS: 92557; 92567 ==

== ENCOUNTER 2023-10-26 08:56 | Outpatient (REF) | payer OTHER, SELFPAY ==
[2023-10-26 09:11] LABS: MANUAL DIFF FLAG NO
[2023-10-26 09:34] LABS: Basophils Percent Auto 0.4 % (0-2); Eosinophils Percent Auto 0.2 % (0-4); Hematocrit 40.1 % (37.0-47.0); Hemoglobin 13.9 g/dl (12.0-16.0); Imm Gran Abs Auto 0.05 X10*3/uL (0.00-0.03); Imm Gran Pct Auto 0.4 % (0.0-0.4); Lymphocytes Absolute Auto 3.4 X10*3/uL (1.2-4.9); Lymphocytes Percent Auto 30.3 % (20-40); Mean Corpuscular HGB Conc 34.7 g/dl (31.0-35.0); Mean Corpuscular Hemoglobin 30.8 pg (27.0-33.0); Mean Corpuscular Volume 88.7 fL (80.0-98.0); Mean Platelet Volume 10.3 fL (9.4-12.3); Monocytes Absolute Auto 0.6 X10*3/uL (0.1-1.2); Neutrophils Absolute Auto 7.2 x10*3/uL (2.0-8.3); Neutrophils Percent Auto 63.7 % (45-73); Platelet Count 338 X10*3/uL (160-400); Red Blood Count 4.52 X10*6/uL (4.20-5.50); Red Cell Distribution Width 13.1 % (11.0-16.0); White Blood Count 11.2 X10*3/uL (4.8-10.8)
[2023-10-26 09:48] LABS: Estimated Average Glucose 114 mg/dL; Hemoglobin A1c % 5.6 % (<6.0)
[2023-10-26 10:23] LABS: Alanine Aminotransferase 21 U/L (0-31); Albumin Level 4.4 g/dL (3.5-5.0); Alkaline Phosphatase 73 U/L (39-117); Anion Gap 16 (12-20); Aspartate Amino Transferase 14 U/L (5-31); Bilirubin Total 0.7 mg/dL (0.0-1.0); Blood Urea Nitrogen 13 mg/dL (9-16); Calcium 9.6 mg/dL (8.4-10.2); Carbon Dioxide 21 mmol/L (22-29); Chloride 108 mmol/L (96-108); Cholesterol 221 mg/dL (<200); Estimated Glomerular Filt Rate > 60; Glucose Random 115 mg/dL (60-115); HDL Cholesterol 49 mg/dL (>40); LDL Cholesterol Calculated 114 mg/dL (<100); Potassium 3.8 mmol/L (3.3-5.1); Sodium 141 mmol/L (135-145); Total Protein 8.2 g/dL (6.5-8.0); Triglycerides 293 mg/dL (<150)
[2023-10-26 10:29] LABS: Free T4 (Free Thyroxine) 0.99 ng/dL (0.71-1.85); Thyroid Stimulating Hormone 6.07 uIU/mL (0.32-4.0); Vitamin D 25-OH Total 11.7 ng/mL (>30)
[2023-10-26 11:16] LABS: Folate 10.3 ng/mL (> or = 4.0); Vitamin B12 376 pg/mL (200-900)
== END 2023-10-26 08:57 | disposition home or self-care (01) ==
LOC: HO.LAB 08:56
PROVIDERS: PCP Internal Medicine; Visit Provider Internal Medicine
DX: E78.00 Pure hypercholesterolemia, unspecified (principal); M91.90 Juvenile osteochondrosis of hip and pelvis, unspecified, unspecified leg
CPT/HCPCS: 36415; 80053; 80061; 82306; 82607; 82746; 83036; 84439; 84443; 85025

== ENCOUNTER 2023-10-29 09:35 | Outpatient (AMB) | payer OTHER, SELFPAY ==
--- NOTE | 2023-10-29 09:44 | AM.OFFVISNUR ---
Intake Intake Visit Reasons: B12 shot Allergies Fruits Allergy (Unknown, Uncoded 08/21/23 10:49) anaphylaxis Office Meds cyanocobalamin (vitamin B-12) 1,000 mcg/mL injection solution Performing Provider: Viky Kaur MD Performing [facility] [place] [facility] Administered by: Elmer Abbasi RN on 10/29/23 09:40 Dose Route Admin Location Dispensed Lot Number Expiration Date NDC Tuck Pointer 1,000 mcg IM right deltoid 1 mL [id number] 01/16/25 03741-486-27 NAVEED PHARMACEUT Comments: consented for b12 shot and tolerated well. Coding Assessment & Plan Assessment & Plan Orders: Orders AMB Vitamin B12 Injection Patient Supplied Today E53.8 - Deficiency of other specified B group vitamins Medications: New cyanocobalamin (vitamin B-12) 1,000 mcg IM ONCE 1 mL 0RF E53.8 - Deficiency of other specified B group vitamins
== END 2023-10-29 09:46 | disposition home or self-care (01) ==
PROVIDERS: PCP Internal Medicine; Visit Provider Internal Medicine
DX: E53.8 Deficiency of other specified B group vitamins (principal)
CPT/HCPCS: 96372; J3420

== ENCOUNTER 2023-11-26 09:43 | Outpatient (AMB) | payer OTHER, SELFPAY ==
[2023-11-26 09:49] VITALS: BP 144/80; PULSE 77; O2SAT 98; BMI 33.7
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
== END 2023-11-26 10:48 | disposition home or self-care (01) ==
PROVIDERS: PCP Internal Medicine; Visit Provider Internal Medicine
DX: I10 Essential (primary) hypertension (principal); R29.6 Repeated falls; E66.9 Obesity, unspecified; Z68.33 Body mass index [BMI] 33.0-33.9, adult; E53.8 Deficiency of other specified B group vitamins; J45.909 Unspecified asthma, uncomplicated; E78.00 Pure hypercholesterolemia, unspecified; R73.02 Impaired glucose tolerance (oral); K21.9 Gastro-esophageal reflux disease without esophagitis; R79.89 Other specified abnormal findings of blood chemistry; E55.9 Vitamin D deficiency, unspecified; M72.2 Plantar fascial fibromatosis
CPT/HCPCS: 96372; 99214; J3420

== ENCOUNTER 2023-12-10 11:04 | Outpatient (REF) | payer OTHER, SELFPAY ==
[2023-12-12 12:23] LABS: HPV mRNA E6/E7 Not Detected (Not Detected)
== END 2023-12-10 11:05 | disposition home or self-care (01) ==
LOC: HO.LNP 11:04
PROVIDERS: Visit Provider Obstetrics & Gynecology
DX: Z01.419 Encounter for gynecological examination (general) (routine) without abnormal findings (principal); Z11.51 Encounter for screening for human papillomavirus (HPV)
CPT/HCPCS: 87624; 88175; 99396

== ENCOUNTER 2023-12-10 11:04 | Outpatient (AMB) | payer OTHER, SELFPAY ==
[2023-12-10 11:55] VITALS: BP 136/82; BMI 33.6
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
== END 2023-12-10 12:10 | disposition home or self-care (01) ==
PROVIDERS: Visit Provider Obstetrics & Gynecology
DX: Z01.419 Encounter for gynecological examination (general) (routine) without abnormal findings (principal)
CPT/HCPCS: 99396

== ENCOUNTER 2023-12-26 09:29 | Outpatient (AMB) | payer OTHER, SELFPAY ==
--- NOTE | 2023-12-26 09:30 | AM.OFFVISNUR ---
Intake Visit Reasons: B12 Shot Allergies Fruits Allergy (Unknown, Uncoded 12/10/23 12:07) anaphylaxis Office Meds cyanocobalamin (vitamin B-12) 1,000 mcg/mL injection solution Performing Provider: Viky Kaur MD Performing Location[facility] [place] [facility] Administered by: Jayshree Nelson RN on 12/26/23 09:31 Dose Route Admin Location Dispensed Lot Number Expiration Date NDC Set Up Person 1,000 mcg IM 1 mL [id number] 02/15/25 17754-871-81 [facility] Assessment & Plan Assessment & Plan Orders: Orders AMB Vitamin B12 Injection Patient Supplied Today E53.8 - Deficiency of other specified B group vitamins Medications: New cyanocobalamin (vitamin B-12) 1,000 mcg IM ONCE 1 mL 0RF E53.8 - Deficiency of other specified B group vitamins
== END 2023-12-26 09:43 | disposition home or self-care (01) ==
PROVIDERS: PCP Internal Medicine; Visit Provider Internal Medicine
DX: E53.8 Deficiency of other specified B group vitamins (principal)
CPT/HCPCS: 96372; J3420

== ENCOUNTER 2023-12-26 09:52 | Outpatient (REF) | payer OTHER, SELFPAY ==
[2023-12-26 11:16] LABS: Free T4 (Free Thyroxine) 0.91 ng/dL (0.71-1.85); Thyroid Stimulating Hormone 2.32 uIU/mL (0.32-4.0)
== END 2023-12-26 09:53 | disposition home or self-care (01) ==
LOC: HO.LAB 09:52
PROVIDERS: PCP Internal Medicine; Visit Provider Internal Medicine
DX: R79.89 Other specified abnormal findings of blood chemistry (principal)
CPT/HCPCS: 36415; 84439; 84443

== ENCOUNTER 2024-01-25 09:09 | Outpatient (AMB) | payer OTHER, SELFPAY ==
--- NOTE | 2024-01-25 09:15 | AM.OFFVISNUR ---
Intake Visit Reasons: B12 Shot Allergies Fruits Allergy (Unknown, Uncoded 12/10/23 12:07) anaphylaxis Office Meds cyanocobalamin (vitamin B-12) 1,000 mcg/mL injection solution Performing Provider: Viky Kaur MD Performing [facility] Administered by: Jayshree Nelson RN on 01/25/24 09:15 Dose Route Admin Location Dispensed Lot Number Expiration Date NDC Outdoor Education Teacher 1,000 mcg IM 1 mL [id number] 03/17/24 79933-544-87 [email or web address] Assessment & Plan Assessment & Plan Orders: Orders AMB Vitamin B12 Injection Patient Supplied Today E53.8 - Deficiency of other specified B group vitamins Medications: New cyanocobalamin (vitamin B-12) 1,000 mcg IM ONCE 1 mL 0RF E53.8 - Deficiency of other specified B group vitamins
== END 2024-01-25 09:23 | disposition home or self-care (01) ==
PROVIDERS: PCP Internal Medicine; Visit Provider Internal Medicine
DX: E53.8 Deficiency of other specified B group vitamins (principal)
CPT/HCPCS: 96372; J3420

== ENCOUNTER 2024-02-15 07:15 | Outpatient (REF) | payer OTHER, SELFPAY ==
--- NOTE | ~2024-02-15 | CT_ITS ---
EXAMINATION: CT LUMBAR SPINE WITHOUT CONTRAST CLINICAL INFORMATION: Lumbar spondylosis, lumbar radiculopathy COMPARISON: Lumbar spine x-ray on 06/05/2019 TECHNIQUE: Multiple 2.0 and 1.5 mm axial images of the lumbar spine were obtained from lower T12 to S1 levels without IV contrast enhancement. Bone window and soft tissue window images were reconstructed. Coronal and Sagittal bone window images were also reconstructed from the axial image data. This CT examination was performed using dose optimization techniques as appropriate, variously including the following: *Automated exposure control *Adjustment of mA and/or kV according to patient size (this includes techniques or standardized protocols for targeted exams where dose is matched to indication/reason for exam; i.e. extremities or head) *Use of iterative reconstruction technique DLP; 722 mGy-cm FINDINGS: The visualized lumbar vertebrae are intact with normal alignment. T12/L1: Bony structures are intact with normal alignment. Intervertebral disc height is normal. Bilateral neuroforamina are patent. Bilateral apophyseal joints are intact with normal alignment. L-1/L-2: Bony structures are intact with normal alignment. Intervertebral disc height is normal. Bilateral neuroforamina are patent. Bilateral apophyseal joints are intact with normal alignment. L2/L3: Bony structures are intact with normal alignment. Intervertebral disc height is normal. Bilateral neuroforamina are patent. Bilateral apophyseal joints are intact with normal alignment. L3/L4: Bony structures are intact with normal alignment. Intervertebral disc height is normal. Bilateral neuroforamina are patent. Bilateral apophyseal joints are intact with normal alignment. L4/L5: Bony structures are intact with normal alignment. Intervertebral disc height is normal. Bilateral neuroforamina are patent. Bilateral apophyseal joints are intact with normal alignment. L5/S1: Bony structures are intact with normal alignment. Intervertebral disc height is markedly decreased. Sharp anterior and posterior syndesmophytes are present. Bilateral neuroforamina are moderately stenosed due to impingement by osteophytes. Bilateral apophyseal joints are intact with normal alignment. Bilateral apophyseal joints show loss of joint space, sclerosis, facet hypertrophy and osteophytosis. CT/CT lumbar spine wo IV con IMPRESSION: 1. No evidence of acute fracture or dislocation. 2. Advanced degenerative disc disease at L5-S1 with moderate bilateral neural foraminal stenosis. Electronically signed by: Brandon Brown MD 02/15/2024 02:53 PM EDT RP
== END 2024-02-15 07:16 | disposition home or self-care (01) ==
LOC: HO.CT 07:15
PROVIDERS: PCP Internal Medicine; Visit Provider Physician Assistant
DX: M54.16 Radiculopathy, lumbar region (principal); M47.9 Spondylosis, unspecified
CPT/HCPCS: 72131

== ENCOUNTER 2024-02-26 09:20 | Outpatient (AMB) | payer OTHER, SELFPAY ==
--- NOTE | 2024-02-26 09:23 | AM.OFFVISNUR ---
Intake Visit Reasons: B12 Shot Allergies Fruits Allergy (Unknown, Uncoded 12/10/23 12:07) anaphylaxis Office Meds cyanocobalamin (vitamin B-12) 1,000 mcg/mL injection solution Performing Provider: Viky Kaur MD [facility] [place] [facility] Administered by: Akua Anthony RN on 02/26/24 09:23 Dose Route Admin Location Dispensed Lot Number Expiration Date NDC Privacy Analyst 1,000 mcg IM 1 mL [id number] 03/17/25 43809-070-39 [employer] Assessment & Plan Assessment & Plan Orders: Orders AMB Vitamin B12 Injection Patient Supplied Today E53.8 - Deficiency of other specified B group vitamins Medications: New cyanocobalamin (vitamin B-12) 1,000 mcg IM ONCE 1 mL 0RF E53.8 - Deficiency of other specified B group vitamins
== END 2024-02-26 09:32 | disposition home or self-care (01) ==
PROVIDERS: PCP Internal Medicine; Visit Provider Internal Medicine
DX: E53.8 Deficiency of other specified B group vitamins (principal)
CPT/HCPCS: 96372; J3420

== ENCOUNTER 2024-03-28 09:11 | Outpatient (AMB) | payer OTHER, SELFPAY ==
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
[2024-03-28 09:18] VITALS: BP 130/72; PULSE 68; O2SAT 98; BMI 35.5
== END 2024-03-28 10:01 | disposition home or self-care (01) ==
PROVIDERS: PCP Internal Medicine; Visit Provider Internal Medicine
DX: I10 Essential (primary) hypertension (principal); F33.1 Major depressive disorder, recurrent, moderate; E66.812 Obesity, class 2; Z68.35 Body mass index [BMI] 35.0-35.9, adult; M51.360 Other intervertebral disc degeneration, lumbar region with discogenic back pain only; R29.6 Repeated falls; K21.9 Gastro-esophageal reflux disease without esophagitis; R73.02 Impaired glucose tolerance (oral); E78.00 Pure hypercholesterolemia, unspecified; J45.20 Mild intermittent asthma, uncomplicated; E53.8 Deficiency of other specified B group vitamins
CPT/HCPCS: J3420

== ENCOUNTER → 2024-03-28 09:11 | Outpatient (BNVA) | payer OTHER, SELFPAY | PROVIDERS: PCP Internal Medicine; Visit Provider Internal Medicine | DX: M51.360 Other intervertebral disc degeneration, lumbar region with discogenic back pain only (principal); R29.6 Repeated falls; I10 Essential (primary) hypertension; F33.1 Major depressive disorder, recurrent, moderate; K21.9 Gastro-esophageal reflux disease without esophagitis; E66.9 Obesity, unspecified; R73.02 Impaired glucose tolerance (oral); E78.00 Pure hypercholesterolemia, unspecified; J45.20 Mild intermittent asthma, uncomplicated | CPT/HCPCS: 96372; 99212; J3420 ==

== ENCOUNTER 2024-04-07 08:39 | Outpatient (AMB) | payer OTHER, SELFPAY ==
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
== END 2024-04-07 09:29 | disposition home or self-care (01) ==
PROVIDERS: PCP Internal Medicine; Referring Provider Internal Medicine; Visit Provider Physician Assistant
DX: M54.16 Radiculopathy, lumbar region (principal)
CPT/HCPCS: 99204

== ENCOUNTER → 2024-04-07 08:39 | Outpatient (BNVA) | payer OTHER, SELFPAY | PROVIDERS: PCP Internal Medicine; Visit Provider Physician Assistant | DX: M54.16 Radiculopathy, lumbar region (principal) | CPT/HCPCS: 99202 ==

== ENCOUNTER 2024-04-14 10:20 | Outpatient (AMB) | payer OTHER, SELFPAY ==
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
[2024-04-14 10:29] VITALS: BP 201/90; PULSE 83; O2SAT 97; BMI 33.7
[2024-04-14 10:31] VITALS: BP 192/86
== END 2024-04-14 11:17 | disposition home or self-care (01) ==
PROVIDERS: PCP Internal Medicine; Referring Provider Internal Medicine; Visit Provider Nurse Practitioner Family
DX: M51.360 Other intervertebral disc degeneration, lumbar region with discogenic back pain only (principal); M54.16 Radiculopathy, lumbar region; M47.816 Spondylosis without myelopathy or radiculopathy, lumbar region
CPT/HCPCS: 99204

== ENCOUNTER → 2024-04-14 10:20 | Outpatient (BNVA) | payer OTHER, SELFPAY | PROVIDERS: PCP Internal Medicine; Referring Provider Internal Medicine; Visit Provider Nurse Practitioner Family | DX: M51.360 Other intervertebral disc degeneration, lumbar region with discogenic back pain only (principal); M54.16 Radiculopathy, lumbar region; M47.816 Spondylosis without myelopathy or radiculopathy, lumbar region | CPT/HCPCS: 99202 ==

== ENCOUNTER 2024-04-25 09:31 | Outpatient (AMB) | payer OTHER, SELFPAY ==
--- NOTE | 2024-04-25 09:47 | AM.OFFVISNUR ---
Intake Visit Reasons: b12 Allergies Fruits Allergy (Unknown, Uncoded 03/28/24 09:18) anaphylaxis Office Meds cyanocobalamin (vitamin B-12) 1,000 mcg/mL injection solution Performing Provider: Viky Kaur MD [facility] Administered by: Akua Anthony RN on 04/25/24 09:56 Dose Route Admin Location Dispensed Lot Number Expiration Date [facility] Transaction Coordinator 1,000 mcg IM right deltoid 1 mL [id number] 05/17/25 22894-370-17 [employer] Assessment & Plan Assessment & Plan Orders: Orders AMB Vitamin B12 Injection Patient Supplied Today E53.8 - Deficiency of other specified B group vitamins Medications: New cyanocobalamin (vitamin B-12) 1,000 mcg IM ONCE 1 mL 0RF E53.8 - Deficiency of other specified B group vitamins
== END 2024-04-25 09:55 | disposition home or self-care (01) ==
PROVIDERS: PCP Internal Medicine; Visit Provider Internal Medicine
DX: E53.8 Deficiency of other specified B group vitamins (principal)
CPT/HCPCS: J3420

== ENCOUNTER → 2024-04-25 09:31 | Outpatient (BNVA) | payer OTHER, SELFPAY | PROVIDERS: PCP Internal Medicine; Visit Provider Internal Medicine | DX: E53.8 Deficiency of other specified B group vitamins (principal) | CPT/HCPCS: 96372 ==

== ENCOUNTER 2024-05-12 11:07 | Day surgery (SDC) | payer OTHER, SELFPAY ==
--- NOTE | ~2024-05-12 | CT_ITS ---
EXAMINATION: CT MYELOGRAM LUMBAR SPINE CLINICAL INFORMATION: Radiculopathy. Back pain. COMPARISON: No prior. Correlation made with CT lumbar spine without contrast 02/15/2024. TECHNIQUE: Spiral CT imaging of the lumbar spine was done in the axial plane after the instillation of dilute iodinated contrast administered intrathecally. No IV contrast. Sagittal, coronal, and thin section axial reformatted images were constructed from the axial data set. This CT examination was performed using dose optimization techniques as appropriate, variously including the following: *Automated exposure control *Adjustment of mA and/or kV according to patient size (this includes techniques or standardized protocols for targeted exams where dose is matched to indication/reason for exam; i.e. extremities or head) *Use of iterative reconstruction technique DLP: 729 mGy-cm Exam submitted for review 06/26/2024 10:51 AM ASTRONOMY PROFESSOR. FINDINGS: CORONAL ALIGNMENT: -Normal. SAGITTAL ALIGNMENT: -There is a normal lordosis. -There is a 2 mm degenerative type retrolisthesis of L2 on L3. Sagittal alignment is otherwise anatomic. LUMBOSACRAL JUNCTION: -Normal. There are 5 [id number]-legtbev lumbar-type vertebral bodies. VERTEBRAL BODIES/BONE: -No compression deformities or suspicious focal bony abnormalities. No fractures. -Mildly irregular endplate changes present at L5-S1. DISCS: -Severe loss of disc height with disc vacuum phenomenon at L5-S1. -Otherwise, only mild loss of disc height at the additional levels, notably L2-3. SPINAL CANAL: -The conus terminates at the inferior L2 level and is normal in morphology and appearance. The distal cord appears normal. -No abnormal developmental findings. -The central canal is capacious without significant narrowing. AXIAL DISC SPACE IMAGES: T12-L1: There is a shallow disc bulge present with a superimposed right paracentral and lateral small disc protrusion. This indents upon the ventral thecal sac but does not contact cord. No significant central canal, subarticular recess narrowing, or foraminal narrowing. Normal facets. There is normal contrast filling of the exiting nerve root sleeves. L1-L2: No significant central canal or neural foraminal narrowing. Normal facets. There is normal contrast filling of the exiting nerve root sleeves. L2-L3: Subtle retrolisthesis. Shallow diffuse disc bulge extending into both foraminal zones without significant mass effect. No significant central canal or subarticular recess narrowing. Normal facets. No neural foraminal narrowing. There is normal contrast filling of the exiting nerve root sleeves. L3-L4: Minimal shallow diffuse disc bulge present extending into both foraminal zones, without significant mass effect. Normal facets. No significant central canal or subarticular recess narrowing. No significant neural foraminal narrowing. There is normal contrast filling of the exiting nerve root sleeves. L4-L5: No significant disc pathology. Early facet degeneration bilaterally. No significant central canal or subarticular recess narrowing. No neural foraminal narrowing of significance. There is normal contrast filling of the exiting nerve root sleeves. L5-S1: There is a shallow disc osteophytic ridge complex present, extending into both foraminal zones, worse on the right. [id number] degenerative hypertrophic facet changes present. There is no significant central canal or subarticular recess narrowing. No mass effect upon the traversing S1 roots. There is moderate to severe left greater than right neural foraminal narrowing, with poor contrast filling of the bilateral left greater than right exiting L5 nerve root sleeves. There is likely some degree of impingement of the exiting left L5 root. IMAGED SI JOINTS: -Normal appearance. PARAVERTEBRAL AND INCLUDED EXTRASPINAL SOFT TISSUES: -Mild fatty infiltration of the liver. -There are duodenal diverticula in the third segment. -Aorta is normal in caliber. -Metallic foreign body in the left subcutaneous buttock. -Normal appendix visualized. CT/CT lumbar post myelography IMPRESSION: 1. Lumbar spondylosis, relatively mild, most significant L5-S1 as detailed. There is no evidence of significant central canal narrowing, or subarticular recess narrowing at any level. 2. Moderate to severe left greater than right neural foraminal narrowing at L5-S1 with some degree of probable impingement of the exiting left L5 root. 3. See the body of the report for ancillary findings an additional detail. Electronically signed by: Don Gonzalez MD 06/26/2024 12:11 PM [facility]
--- NOTE | ~2024-05-12 | FL_ITS ---
FLUOROSCOPIC GUIDED LUMBAR MYELOGRAM INDICATION: Radiculopathy TECHNIQUE: Risks and benefits and possible complications were discussed with the patient and the consent form was signed. Patient was placed prone on the fluoroscopy table. The back was prepped and draped in routine sterile fashion. Betadine was used as a skin antiseptic. Utilizing fluoroscopic guidance, the L4-5 interlaminar space was accessed with a 22 gague Jean spinal needle and clear CSF fluid was observed in the needle hub. A total of 10 cc of Isovue-M 200 was then injected through the spinal needle. Contrast was observed entering the thecal sac. The needle was removed. The patient was transferred to CT for post myelographic imaging. There were no immediate complications. Total fluoroscopy time: 1 minute 13 seconds FL/FL myelogram spine lumbosacral IMPRESSION: Successful instillation of intrathecal Isovue-M 200 at L4-L5. Patient will be transferred to CT scan for post myelographic imaging. This procedure was performed by Gama Fuentes PA-C and supervised by Dr. Gonzalez. Electronically signed by: Don Gonzalez MD 06/26/2024 10:48 AM [facility]
[2024-05-12 12:09] VITALS: BP 164/73; PULSE 69; RESP 16; TEMP 37.2; O2SAT 98; BMI 35.8
[2024-05-12 13:50] VITALS: BP 157/74; PULSE 68; RESP 18; TEMP 36.6; O2SAT 97
[2024-05-12 14:05] VITALS: BP 160/79; PULSE 62; RESP 16; O2SAT 96
[2024-05-12 14:25] VITALS: BP 144/68; PULSE 62; RESP 16; TEMP 36.4; O2SAT 98
[2024-05-12] MEDS: Acetaminophen 325 MG TABLET 650 MG PO (14:27)
== END 2024-05-12 14:46 | disposition home or self-care (01) ==
PROVIDERS: Radiology Vascular & Interventional Radiology; PCP Internal Medicine; Visit Provider Physician Assistant
DX: M54.16 Radiculopathy, lumbar region (principal); M47.816 Spondylosis without myelopathy or radiculopathy, lumbar region; M79.7 Fibromyalgia; G25.0 Essential tremor; F20.9 Schizophrenia, unspecified; E55.9 Vitamin D deficiency, unspecified; F41.8 Other specified anxiety disorders; J45.909 Unspecified asthma, uncomplicated; E78.00 Pure hypercholesterolemia, unspecified
CPT/HCPCS: 62304; 72131; J2003; Q9967

== ENCOUNTER → 2024-05-12 12:11 | Outpatient (BNV) | payer OTHER, SELFPAY | PROVIDERS: PCP Internal Medicine; Visit Provider Physician Assistant Surgical | DX: M47.816 Spondylosis without myelopathy or radiculopathy, lumbar region (principal) | CPT/HCPCS: 62304; 72131 ==

== ENCOUNTER 2024-05-23 08:46 | Outpatient (REF) | payer OTHER, SELFPAY ==
--- NOTE | ~2024-05-23 | MM_ITS ---
EXAMINATION: MM SCREENING DIGITAL BREAST TOMOSYNTHESIS, BILATERAL CLINICAL INFORMATION: Screening. Asymptomatic. COMPARISON: Mammography: Comparison is made with available priors TECHNIQUE: Digital breast mammography with tomosynthesis is performed in both the craniocaudal and mediolateral oblique views along with computer-aided detection (CAD). FINDINGS: There are scattered areas of fibroglandular density (ACR BI-RADS breast composition Category b). There are no significant masses, abnormal calcifications, or other abnormalities. MM/MM tomosynthesis screening BI IMPRESSION: No mammographic evidence of malignancy. ASSESSMENT: BI-RADS BI-RADS 1 - Negative RECOMMENDATION: Routine annual mammography screening. 1 year F/U This examination should not preclude the clinical evaluation of a suspicious palpable abnormality. This patient's information was entered into a reminder system with a target due date for their next mammogram. Electronically signed by: [place]ia Jolley DO 05/29/2024 10:11 AM [facility]
== END 2024-05-23 08:47 | disposition home or self-care (01) ==
LOC: HO.MAMMO 08:46
PROVIDERS: PCP Internal Medicine; Visit Provider Internal Medicine
DX: Z12.31 Encounter for screening mammogram for malignant neoplasm of breast (principal); E53.8 Deficiency of other specified B group vitamins
CPT/HCPCS: 77063; 77067; 96372; J3420

== ENCOUNTER → 2024-05-23 09:00 | Outpatient (BNV) | payer OTHER, SELFPAY | PROVIDERS: PCP Internal Medicine; Visit Provider Internal Medicine | DX: Z12.31 Encounter for screening mammogram for malignant neoplasm of breast (principal) | CPT/HCPCS: 77063; 77067 ==

== ENCOUNTER 2024-05-23 09:15 | Outpatient (AMB) | payer OTHER, SELFPAY ==
--- NOTE | 2024-05-23 09:28 | AM.OFFVISNUR ---
Intake Visit Reasons: B12 Shot Allergies Fruit Skin Allergy (Severe, Uncoded 05/12/24 12:12) Anaphylaxis Office Meds cyanocobalamin (vitamin B-12) 1,000 mcg/mL injection solution Performing Provider: Viky Kaur MD [facility] Administered by: Mary Fairbanks LPN on 05/23/24 09:28 Dose Route Admin Location Dispensed Lot Number Expiration Date [facility] Legal Administrative Assistant 1,000 mcg IM right deltoid 1 mL [id number] 05/17/25 89856-867-23 Claritics Assessment & Plan Assessment & Plan Orders: Orders AMB Vitamin B12 Injection Patient Supplied Today E53.8 - Deficiency of other specified B group vitamins Medications: New cyanocobalamin (vitamin B-12) 1,000 mcg IM ONCE 1 mL 0RF E53.8 - Deficiency of other specified B group vitamins
== END 2024-05-23 09:31 | disposition home or self-care (01) ==
PROVIDERS: PCP Internal Medicine; Visit Provider Internal Medicine
DX: E53.8 Deficiency of other specified B group vitamins (principal)

== ENCOUNTER 2024-05-26 09:00 | Outpatient (REF) | payer OTHER, SELFPAY ==
--- NOTE | ~2024-05-26 | XR_ITS ---
EXAMINATION: XR LUMBAR SPINE CLINICAL INFORMATION: Low back pain, unspecified M54.50. COMPARISON: XR Lumbar spine 06/05/[address] myelogram lumbar spine 05/12/2024. TECHNIQUE: 4 views of the lumbar spine, inclusive of flexion and extension laterals. FINDINGS: Normal bone mineralization. No fractures, compression deformities, or focal bony abnormalities. Trace right convex scoliosis, possibly positional. Normal lordosis. Neutral view shows a 2 mm degenerative retrolisthesis of L2 on L3. No additional subluxation. Flexion and extension views demonstrate no change in the sagittal alignment and no evidence of instability. Severe disc degeneration L5-S1. There is otherwise mild disc degeneration most significant at L2-3. Mild facet degeneration L5-S1. Radiopaque metallic foreign body in the left superior buttock. Tissues otherwise normal. XR/XR lumbar spine 4V min IMPRESSION: 1. Mild spondylosis most significant at L5-S1. No acute findings lumbar spine. 2. 2 mm retrolisthesis L2 on L3, remained static in flexion and extension. No evidence of instability. Electronically signed by: Don Gonzalez MD 06/26/2024 12:21 PM [facility]
== END 2024-05-26 09:01 | disposition home or self-care (01) ==
LOC: HO.HOSX 09:00
PROVIDERS: PCP Internal Medicine; Visit Provider Physician Assistant
DX: M51.360 Other intervertebral disc degeneration, lumbar region with discogenic back pain only (principal); M48.061 Spinal stenosis, lumbar region without neurogenic claudication
CPT/HCPCS: 72110; 99212

== ENCOUNTER 2024-05-26 09:00 | Outpatient (AMB) | payer OTHER, SELFPAY ==
--- NOTE | 2024-05-26 09:06 | HO.SPINEOV ---
Intake Visit Reasons: CT follow up Intake Note: Ms. Gonzalez is here to f/u on her Ct results. 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 2. Advanced degenerative disc disease at L5-S1 with moderate bilateral neural foraminal stenosis. Code(s): M51.369 - Other intervertebral disc degeneration, lumbar region without mention of lumbar back pain or lower extremity pain Category: Medical Qualifiers: Disc-related pain type: discogenic back pain only Qualified Code(s): M51.360 - Other intervertebral disc degeneration, lumbar region with discogenic back pain only Plan Debbie comes in today for a follow-up visit to review her CT myelogram. To recap she was previously seen in the office complaining of severe low back pain and shooting pains down her left lower extremity. When describing the distribution of her pain she ran her hand down the lateral aspect of her left leg and over the anterior left calf. On review of the CT myelogram there is redemonstrated bony overgrowth over the left L5 foramen. This is causing significant impingement of the left L5 nerve root. There is severe degenerative disc disease at L5-S1. There is anterior osteophyte bridging, but there does not appear to be complete auto fusion at this level. When discussing her pain, Debbie states that both severe low back pain and shooting left leg pain are her primary concerns. She is unable to differentiate if 1 is worse than the other. Her 2 daughters accompanied her to this visit today and attest to her severe low back pain as being her primary complaint when at home. It does appear that she has some degree of osteopenia on CT, but does not appear severe enough to be qualified as osteoporosis. She has no recent DEXA scan to review. I believe to addressed her left lower extremity pain a L5 foraminotomy would be most appropriate. However this would not address her low back pain. I would like to discuss with Dr. Lie, and see if he believes the patient would be a good candidate for an L5-S1 ALIF, or if a L5 left-sided foraminotomy would be more appropriate. For the time being I will have her get an x-ray of her lumbar spine to further assess for any instability prior to a surgical decision being made by Dr. Lei. Jag Lei MD,PhD [facility] Orders: Orders XR lumbar spine 4V min Today M54.50 - Low back pain, unspecified Coding Level of Care Code Est Pt Level 3 (12664) Diagnoses Degeneration of intervertebral disc of lumbar region with discogenic back pain M51.360 Disc-related pain type: discogenic back pain only
== END 2024-05-26 10:06 | disposition home or self-care (01) ==
PROVIDERS: PCP Internal Medicine; Visit Provider Physician Assistant
DX: M51.360 Other intervertebral disc degeneration, lumbar region with discogenic back pain only (principal)
CPT/HCPCS: 99213

== ENCOUNTER → 2024-05-26 09:28 | Outpatient (BNV) | payer OTHER, SELFPAY | PROVIDERS: PCP Internal Medicine; Visit Provider Radiology Diagnostic Radiology | DX: M47.896 Other spondylosis, lumbar region (principal) | CPT/HCPCS: 72110 ==

== ENCOUNTER 2024-06-23 09:14 | Outpatient (AMB) | payer OTHER, SELFPAY ==
--- NOTE | 2024-06-23 09:32 | AM.OFFVISNUR ---
Intake Visit Reasons: b12 - see comments Allergies Fruit Skin Allergy (Severe, Uncoded 05/12/24 12:12) Anaphylaxis Office Meds cyanocobalamin (vitamin B-12) 1,000 mcg/mL injection solution Performing Provider: Viky Kaur MD Performing Location[facility] Administered by: Akua Anthony RN on 06/23/24 09:32 Dose Route Admin Location Dispensed Lot Number Expiration Date [facility] [place] Yarn Polishing Machine Operator 1,000 mcg IM 1 mL [id number] 05/17/25 38278-635-76 [facility] Assessment & Plan Assessment & Plan Orders: Orders AMB Vitamin B12 Injection Patient Supplied Today E53.8 - Deficiency of other specified B group vitamins Medications: New cyanocobalamin (vitamin B-12) 1,000 mcg IM ONCE 1 mL 0RF E53.8 - Deficiency of other specified B group vitamins
== END 2024-06-23 09:39 | disposition home or self-care (01) ==
PROVIDERS: PCP Internal Medicine; Visit Provider Internal Medicine
DX: E53.8 Deficiency of other specified B group vitamins (principal)

== ENCOUNTER → 2024-06-23 09:14 | Outpatient (BNVA) | payer OTHER, SELFPAY | PROVIDERS: PCP Internal Medicine; Visit Provider Internal Medicine | DX: E53.8 Deficiency of other specified B group vitamins (principal) | CPT/HCPCS: 96372; J3420 ==

== ENCOUNTER 2024-07-02 13:52 | Outpatient (AMB) | payer OTHER, SELFPAY ==
--- NOTE | 2024-07-02 14:21 | HO.SPINEOV ---
Intake Visit Reasons: F/u Intake Note: Ms. Gonzalez is here today for a F/u. Discotheque Dancer Required: No Allergies Fruit Skin Allergy (Severe, Uncoded 05/12/24 12:12) Anaphylaxis Assessment & Plan Assessment & Plan (1) Lumbar radiculopathy: Code(s): M54.16 - Radiculopathy, lumbar region Category: Medical Plan Debbie is a very pleasant 63 year old female who comes in today for follow-up after having her CT myelogram completed. I was able to review her case with Dr. Lei, who evaluated the patient alongside this sports book writer today. After reviewing her imaging Dr. Lei offered her a L5-S1 Transkambin lumbar fusion to address her back pain and left-sided radiculopathy. Debbie has had some time to review this with her family, and feels she is ready to proceed with surgery. We discussed the surgical procedure in depth during this visit, and I answered all of her questions to the best of my ability. I utilized the spine models in our office to explain the procedure. Debbie was given risk and benefits of surgery including but not limited to infection, hematoma, nerve injury, durotomy, weakness, bowel/bladder injury, persistent pain, as well as the option to continue with conservative treatment and patient wishes to proceed with surgery. They are aware they should stop NSAIDs 7 days prior to surgery. All questions were answered to the best of our ability. If there is anything about this patients medical history that we have overlooked or concerns you have about us proceeding with surgery we would appreciate any input you can offer. Jag Lei MD,PhD [facility] Orders: Referrals Spine Surgery Notification M54.16 - Radiculopathy, lumbar region Coding Level of Care Code Est Pt Level 3 (73763) Diagnoses Lumbar radiculopathy M54.16
== END 2024-07-02 15:11 | disposition home or self-care (01) ==
PROVIDERS: PCP Internal Medicine; Visit Provider Physician Assistant
DX: M54.16 Radiculopathy, lumbar region (principal)
CPT/HCPCS: 99213

== ENCOUNTER → 2024-07-02 13:52 | Outpatient (BNVA) | payer OTHER, SELFPAY | PROVIDERS: PCP Internal Medicine; Visit Provider Physician Assistant | DX: M54.16 Radiculopathy, lumbar region (principal) | CPT/HCPCS: 99212 ==

== ENCOUNTER → 2024-07-16 09:46 | Outpatient (BNVA) | payer OTHER, SELFPAY | PROVIDERS: PCP Internal Medicine; Visit Provider Internal Medicine | DX: M54.16 Radiculopathy, lumbar region (principal); F33.1 Major depressive disorder, recurrent, moderate; K21.9 Gastro-esophageal reflux disease without esophagitis; E66.9 Obesity, unspecified; R73.02 Impaired glucose tolerance (oral); E78.00 Pure hypercholesterolemia, unspecified; J45.20 Mild intermittent asthma, uncomplicated; E55.9 Vitamin D deficiency, unspecified; R03.0 Elevated blood-pressure reading, without diagnosis of hypertension; Z91.81 History of falling; Z68.35 Body mass index [BMI] 35.0-35.9, adult | CPT/HCPCS: 96372; 99212; J3420 ==

== ENCOUNTER → 2024-07-25 08:31 | Outpatient (AMB) | payer OTHER, SELFPAY ==
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
--- OUTSIDE RECORDS SUMMARY | 2024-07-25 08:55 | XMS_ITS | Encounter Summary ---
Author Organization [facility] Address [address] [place] [id number] Care Team Providers Care Wildlife Veterinarian Name Role Phone Unavailable Primary Care Provider Unavailabl e Encounter Details Date Type Department Care Team (Latest Contact Info) Description 06/23/2020 Lab Requisition [facility] COVID [address] Through [address] [place] [address] [address] [place] [address] Paulo Kay PA-C [address] [place] [address] [phone] Encounter for laboratory testing for COVID-19 virus Social History Tobacco Use Types Packs/Day Years Used Date Smoking Tobacco: Never Assessed Sex and Gender Information Value Date Recorded Sex Assigned at Not on file Gender Identity Not on file Sexual Orientation Not on file COVID-19 Exposure Response Date Recorded In the last month, have you been in contact with someone who was confirmed or suspected to have Coronavirus / COVID-19? Unable to assess 06/23/2020 2:51 PM EST documented as of this encounter Plan of Treatment Not on file documented as of this encounter Procedures Procedure Name Priority Date/Time Associated Diagnosis Comments COVID-19 (SARS-COV-2) - SEMA4 LAB Routine 06/23/2020 2:52 PM EST Encounter for laboratory testing for COVID-19 virus [ICD-10-CM] documented in this encounter Results * COVID-19 (SARS-COV-2) (SEMA4) (06/23/2020 2:52 PM EST) COVID-19 RT-PCR NOT-DETEC JUSTINE Not-Detec justine 06/25/2020 11:54 AM EST [facility] LAB - [facility] Comment:Interpretation: The viral RNA was not detected, making the COVID-19 diagnosis less likely. Clinical correlation is highly recommended.Final report signed by Radha Mccoy, Ph.D., Laboratory DirectorTests performed at [facility] Microbiology Nasopharyngeal swab / Unknown 06/23/2020 2:52 PM EST 06/23/2020 2:52 PM EST Narrative CARLALynne GONZALEZ Maya CAMERONDANIEL - 06/25/2020 11:54 AM EST Performed by [employer] [address] [place] [address], CLIA# [id number] and [place] License# [id number] Paulo Kay PA-C MICROBIOLOGY - NERAL ORDERABLES [place] GONZALEZ documented in this encounter Visit Diagnoses Diagnosis Encounter for laboratory testing for COVID-19 virus documented in this encounter
--- OUTSIDE RECORDS SUMMARY | 2024-07-25 08:55 | XMS_ITS | Clinical Summary ---
Author Organization [facility] Address [address] [place] [address] Care Team Providers Care Conflict Resolution Professional Name Role Phone Unavailable Primary Care Provider Unavailabl e Social History Tobacco Use Types Packs/Day Years Used Date Smoking Tobacco: Never Assessed Sex and Gender Information Value Date Recorded Sex Assigned at Not on file Gender Identity Not on file Sexual Orientation Not on file Plan of Treatment Health Maintenance Due Date Last Done Comments Hepatitis C Virus Screening 1961 HIV Screening 1974 DTaP/Tdap/Td Vaccines (1 - Tdap) 1980 Pap Smear (Ages 21-65) 1982 Mammogram 2001 Colonoscopy 2006 Pneumococcal Vaccines 50+ (1 of 1 - PCV) 2011 Zoster (Shingles) Vaccine (1 of 2) 2011 Influenza Vaccine 01/17/2024 COVID-19 Vaccine ( - 2023-2 5 season) 2024 RSV Vaccine 60 years and old er and Patients (1 - 1-dose 75+ series) 2036 Hepatitis B Vaccines Aged Out No long er eligible based on patient's age to complete this topic Pneumococcal Vaccine: Pediat gianni (0-5 Years) and At-Risk Patients (6 to 49 Years) Aged Out No longer eligible b ased on patient's age to complete this topic
== END | disposition home or self-care (01) ==
PROVIDERS: PCP Internal Medicine

== ENCOUNTER → 2024-07-25 08:31 | Outpatient (REF) ==
[2024-07-25 09:48] LABS: MANUAL DIFF FLAG NO
[2024-07-25 09:55] LABS: Basophils Percent Auto 0.4 % (0-2); Eosinophils Percent Auto 0.5 % (0-4); Hemoglobin 13.8 g/dl (12.0-16.0); Imm Gran Abs Auto 0.03 X10*3/uL (0.00-0.03); Imm Gran Pct Auto 0.4 % (0.0-0.4); Lymphocytes Absolute Auto 2.2 X10*3/uL (1.2-4.9); Lymphocytes Percent Auto 27.5 % (20-40); Mean Corpuscular HGB Conc 35.4 g/dl (31.0-35.0); Mean Corpuscular Hemoglobin 31.4 pg (27.0-33.0); Mean Corpuscular Volume 88.8 fL (80.0-98.0); Mean Platelet Volume 10.3 fL (9.4-12.3); Monocytes Absolute Auto 0.5 X10*3/uL (0.1-1.2); Monocytes Percent Auto 5.8 % (2-11); Neutrophils Absolute Auto 5.1 x10*3/uL (2.0-8.3); Neutrophils Percent Auto 65.4 % (45-73); Platelet Count 289 X10*3/uL (160-400); Red Blood Count 4.39 X10*6/uL (4.20-5.50); Red Cell Distribution Width 12.8 % (11.0-16.0); White Blood Count 7.8 X10*3/uL (4.8-10.8)
[2024-07-25 10:07] LABS: Estimated Average Glucose 111 mg/dL; Hemoglobin A1c % 5.5 % (<6.0); Total Hemoglobin (HGBA1C) 3564.5128 umol/L
[2024-07-25 10:37] LABS: Alanine Aminotransferase 20 U/L (0-31); Albumin Level 4.4 g/dL (3.5-5.0); Alkaline Phosphatase 76 U/L (39-117); Anion Gap 10 (12-20); Aspartate Amino Transferase 20 U/L (5-31); Bilirubin Total 0.6 mg/dL (0.0-1.0); Blood Urea Nitrogen 10 mg/dL (9-16); Calcium 9.8 mg/dL (8.4-10.2); Carbon Dioxide 25 mmol/L (22-29); Chloride 109 mmol/L (96-108); Cholesterol 190 mg/dL (<200); Estimated Glomerular Filt Rate > 60; Glucose Random 114 mg/dL (60-115); HDL Cholesterol 41 mg/dL (>40); LDL Cholesterol Calculated 116 mg/dL (<100); Potassium 3.9 mmol/L (3.3-5.1); Sodium 140 mmol/L (135-145); Triglycerides 167 mg/dL (<150)
[2024-07-25 10:51] LABS: Free T4 (Free Thyroxine) 1.06 ng/dL (0.71-1.85); Vitamin D 25-OH Total 35.7 ng/mL (>30)
[2024-07-25 10:55] LABS: Thyroid Stimulating Hormone 2.98 uIU/mL (0.32-4.0)
[2024-07-25 11:06] LABS: Folate 14.6 ng/mL (> or = 4.0); Vitamin B12 568 pg/mL (200-900)
== END ==
LOC: HO.CARD 08:31
PROVIDERS: Internal Medicine
DX: Z01.818 Encounter for other preprocedural examination (principal); R73.02 Impaired glucose tolerance (oral); E78.00 Pure hypercholesterolemia, unspecified
CPT/HCPCS: 99212

== ENCOUNTER → 2024-07-25 09:36 | Outpatient (BNV) | payer OTHER, SELFPAY | PROVIDERS: PCP Internal Medicine; Visit Provider Internal Medicine Cardiovascular Disease | DX: E78.00 Pure hypercholesterolemia, unspecified (principal); R73.02 Impaired glucose tolerance (oral) | CPT/HCPCS: 93010 ==

== ENCOUNTER 2024-08-13 06:17 | Inpatient (IN) | payer OTHER, SELFPAY ==
[2024-07-30 10:32] VITALS: BMI 35.1
[2024-07-30 10:37] VITALS: BP 158/76; PULSE 66; RESP 16; O2SAT 97
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
[2024-08-13] VITALS (19 sets, daily range): BP systolic 99–156; BP diastolic 55–84; PULSE 60–80; RESP 10–18; TEMP 36.1–36.7; O2SAT 94–100
--- NOTE | ~2024-08-13 | FL_ITS ---
EXAMINATION: FL GUIDANCE ONLY HISTORY: l5-s1 transkambin COMPARISON: Correlation is made with plain films of the lumbar spine dated 05/26/2024. TECHNIQUE: Fluoroscopy time: 1 minute, 45 seconds. Cumulative Dose: 135.323 mGy. DAP: 48.662 mGym2 Images: 3. FINDINGS: Images demonstrate posterior fusion of L5 and S1 with pedicle screws, spinal stabilization rods and an intervertebral spacer. FL/FL guidance in OR IMPRESSION: Fluoroscopy during procedure. Please see procedure report for additional information. Electronically signed by: Rigo Meza MD 08/13/2024 10:20 AM SEBASTIAN
--- OUTSIDE RECORDS SUMMARY | 2024-08-13 06:22 | XMS_ITS | Clinical Summary ---
Author Organization [facility] Address [address] [place] [address] Care Team Providers Care Division Order Analyst Name Role Phone Unavailable Primary Care Provider [...]
--- OUTSIDE RECORDS SUMMARY | 2024-08-13 06:22 | XMS_ITS | Encounter Summary ---
Author Organization [facility] Address [address] [place] [id number] Care Team Providers Care Regional Loss Prevention Manager Name Role Phone Unavailable Primary Care Provider Unavailabl e Encounter Details Date Type Department Care Team (Latest Contact Info) Description 06/23/2020 Lab Requisition [facility] COVID [address] Through [address] [place] [address] [address] [place] [address] Paulo Kay PA-C [address] [place] [address] [phone] Encounter for laboratory testing for COVID-19 virus [...] Radha Mccoy, Ph.D., Laboratory DirectorTests performed at [facility] Nasopharyngeal swab / Unknown 06/23/2020 2:52 PM EST 06/23/2020 2:52 PM EST Narrative CARLALynne GONZALEZ Maya CAMERONDANIEL - 06/25/2020 11:54 AM EST Performed by [facility] [address] [place] [address], CLIA# [id number] and [place] License# [id number] Paulo Kay PA-C MICROBIOLOGY - NERAL ORDERABLES [place] GONZALEZ documented in this encounter Visit Diagnoses Diagnosis Encounter for laboratory testing for COVID-19 virus documented in this encounter
[2024-08-13] MEDS: Lactated Ringers 1,000 ML 100 ML IVCONT (06:41)
[2024-08-13] MEDS: Gabapentin 300 MG CAPSULE PO ×4 (06:42→20:59)
[2024-08-13] MEDS: methocarbamoL 750 MG TABLET PO ×2 (06:43→20:59)
--- NOTE | 2024-08-13 07:00 | MHC.SHP ---
Pre-Procedural Eval Section A - 24 Hr Update-Section A only Date of Service: 08/13/24 Section B - Complete if H&P > 30 days Chief Complaint: s/p l5-s1 transkambin lumbar fusion Allergies: Allergies Allergy/AdvReac Type Severity Reaction Status Date / Time Fruit Skin Allergy Severe Anaphylaxis Uncoded 08/13/24 06:16 Review of Systems Sugical H&P ROS: Negative: Constitution, Cardiovascular, Respiratory, Neurological, Psychiatric, Hem-Onc, Allergic/Immunologic, Gastrointestinal, Genitourinary, Musculoskeletal, Integumentary, Endocrine and Eyes/Ears/Nose/Throat Exam Surgical H&P Exam: Not Evaluated: HEENT, Not Evaluated: Heart, Not Evaluated: Lungs, Not Evaluated: Extremities, Not Evaluated: Abdomen, Not Evaluated: Skin and Not Evaluated: Neurological Exam Comment: THE PATIENT IS AWAKE, ALERT, NO ACUTE DISTRESS. PROPOSED SURGICAL INCISION SITE IS CLEAN, DRY, WITH NO SIGNS OF RECENT INJURY OR TRAUMA. Plan Diagnosis/Plan: Unchanged I have reviewed the history and physical and performed a pertinent physical examination on my patient. No changes have occurred unless specified. Plan remains the same, L5-S1 TRANSKAMBIN lumbar fusion Time Spent With Patient Time: Total time managing care of this patient today _15__ minutes.
--- NOTE | 2024-08-13 07:18 | PHA.MEDREC ---
Pharmacy Consult ? Medication Reconciliation Pharmacy has reviewed the medication reconciliation done by nursing. Also went and talked to patient ton confirm medication list. Per patient, she takes zolpidem every night, not as needed. Last dose of medications was yesterday, except she took metoprolol this morning.
[2024-08-13] MEDS: ceFAZolin Sodium/Dextrose,Iso 2 GM/50 ML PIGGYBACK IV ×3 (07:54→20:13)
[2024-08-13] MEDS: Acetaminophen 1,000 MG/100 ML PIGGYBACK 400 MG IV (08:05)
--- NOTE | 2024-08-13 09:39 | W.PM.OPN ---
Operative Note Operative Note Date of Service: 08/13/24 Narrative: Preoperative diagnosis: 1) lumbar degenerative disc disease L5-S1 2) left lumbar radiculopathy and back pain Postprocedure diagnosis: 1) same as above Procedure: 1) L5-S1 oblique lateral lumbar interbody fusion with discectomy, preparation of the endplates and placement of a titanium bullet cage packed with allograft, anterior to the transverse process in modified prone position, with intraoperative biplanar fluoroscopy imaging and electrophysiological monitoring 2) L5-S1 posterior minimally invasive pedicle screw placement and posterior lateral instrumentation and fusion with intraoperative biplanar fluoroscopic imaging and electrophysiological monitoring 3 Injection of 10 cc of Exparel at the bilateral L5 transverse process for a muscular erector spinae block and additional Exparel in paravertebral tissue for postop management Consent Informed Consent was obtained for this operation. I have explained the nature, purpose and benefits of the operation. I have discussed the risks and benefit of the operation including possible complications or adverse events with patient/family. Alternative(s) were discussed with the patient with their relative benefits and risks as well as the consequences of not accepting the operation were included in obtaining consent. Surgeon: PJ BEJARANO MD, PHD Procedure Assisted By: Jag López PA-C Description of Procedure: This is a complex surgery on the lumbar spine and an assistant passenger locomotive engineer as needed for safety of the surgery for setup of instrumentation, retraction and closing. History: This 64-year-old female suffering from severe back pain and left lumbar radiculopathy. Imaging reviews severe lumbar degenerative disc disease causing bilateral foraminal stenosis. The patient was offered an oblique lumbar lateral interbody fusion followed by a posterior lateral instrumented fusion L5-S1. The procedure and complications were explained and the patient was consented. Procedure: The patient was brought to the operating room and endotracheally intubated. The patient was positioned on the Miguelito spine table in a modified prone position for ease of access from the left side.. 2C arms were installed for fluoroscopy. Prepping and draping was done followed by timeout. The landmarks, including spinal processes, transverse processes, disc space, endplates and pedicles are identified and marked. The following steps are taken for each specified level: L5-S1 level: Cage size 9 mm high and 27 mm long titanium . The patient was turned using the rotation of the surgical table so a near direct anterior lateral approach to the lumbar spine could be achieved. A small incision was then made superior to the mid iliac crest and then using biplanar fluoroscopy visualization, under electrophysiological monitoring and stimulation, we introduced an electrophysiological probe through the retroperitoneal space into the desired disc anterior to the transverse process and then passed it into the disc space after finding a silent window. This took 2 attempts to find silent the window. Initially there was activity at 3 milliamperes but finally I was able to find an area there was no response. The sleeve was retained and the probe was removed, then the K wire was passed sequentially into the disc space. A dilating tube was then passed along the same route. Following this, a working channel, a working channel was then passed sequentially into the disc space. The working channel was manually held in position while a series of disc cleaning tools were passed through the channel to remove the affected disc under clear and direct biplanar fluoroscopic visualization, decompress the nerve roots and equal corticated vertebral endplates at this segment. Arthrodesis of the intervertebral space via an anterior retroperitoneal exposure was achieved through Kambin's [place] and lateral extraforaminal space. Allograft was added into the anterior disc space. The working channel was then removed. A titanium interbody cage tightly packed with allograft was then inserted into the midportion of the intervertebral disc space over a K-wire under biplanar fluoroscopic visualization and intraoperative neuro monitoring. The inter pedicular and intradiscal space was significantly enlarged and disc height was restored to worked normal anatomy there for releasing pressure on the nerve roots visual largely the spinal canal and lateral recess as well as foramen were bilateral decompressed and all bones were confined to the borders of the disc space . The following steps are then taken for each specified level: L5-S1 level: Bilateral L5 screws with a diameter of 6.5 x 4 mm and bilateral S1 screws with a diameter of 6.5 x 35 mm. The posterolateral fusion is initiated after the patient is rotated to a true prone position. The entry point to the pedicle is identified in the AP and lateral views and then the skin incision is injected with local anesthetic. We entered the pedicle with the pediguard tap after which a K-wire was introduced into the vertebral body. Additionally, I used a small periosteal decorticator along the screws to refresh the surface of the bone and facet and I put some amount of allograft for additional stability for the posterolateral fusion. Over the K-wire we insert pedicle screws bilaterally. After the screws were placed, we put the janak in place and under fluoroscopic imaging, we locked the janak in place and removed the screw tops and then each incision has been closed with 0 Vicryl for the fascia and a 3-0 Vicryl for the subdermal layer. Steri-Strips were used to approximate the incisions. An OpSite with Tegaderm was used to cover the incision. Final x-rays and AP and lateral projection showed good position of the interbody device and instrumentation. All sponge and needle counts were correct. The patient was extubated and transported in a stable condition to the recovery room. 2-0 Vicryl This procedure was done with the aid of a physician assistant passenger locomotive engineer as a qualified resident was not available. Anesthesia: General Estimated Blood Loss (ml): 30 mL Specimen: None Duration of Surgery: 1 hour 15 minutes Postoperative Plan: Admit to inpatient
[2024-08-13] MEDS: fentaNYL citrate/PF 100 MCG/2 ML VIAL 25 MCG IVPUSH (10:25)
[2024-08-13] MEDS: HYDROmorphone HCl 0.5 MG/0.5 ML SYRINGE 0.25 MG IVPUSH ×2 (13:07→13:12)
[2024-08-13] MEDS: oxyCODONE HCl Immed Release 5 MG TABLET 10 MG PO ×2 (14:20→18:41)
[2024-08-13] MEDS: Docusate Sodium 100 MG CAPSULE PO ×2 (14:20→20:59)
[2024-08-13] MEDS: Fenofibrate 160 MG TABLET PO (14:20)
[2024-08-13] MEDS: Acetaminophen 325 MG TABLET 975 MG PO ×2 (14:20→18:41)
[2024-08-13] MEDS: Folic Acid 1 MG TABLET PO (14:21)
[2024-08-13] MEDS: DULoxetine HCl 30 MG CAPSULE.DR PO (14:21)
[2024-08-13] MEDS: Cholecalciferol (Vitamin D3) 25 MCG TABLET 50 MCG PO (14:21)
[2024-08-13] MEDS: 0.9 % Sodium Chloride 1,000 ML 75 ML IVCONT (16:15)
[2024-08-13] MEDS: Cyanocobalamin (Vitamin B-12) 1,000 MCG/ML VIAL 1000 MCG IM (16:38)
--- NOTE | 2024-08-13 16:50 | PC.NURSE ---
Flonase nasal spray ordered but not available, message sent to pharmacy requesting medication.
--- NOTE | 2024-08-13 19:28 | PC.NURSE ---
Patient arrived to the unit at 1350 from PACU s/p lumbar fusion, Alert and oriented on 2L NC sat's 98%, no home O2. Patient c/o severe pain requesting PRN medication. Education on the use and importance of spirometer provived. Patient refused to get up or get out of bed stating pain too severe. External catheter present on arrival, not working properly, patient needed total bed change. Purewick replaced, working good. Patient able to tolerate PO intake well, no nausea reported. Dressing CDI
[2024-08-13] MEDS: Zolpidem Tartrate 5 MG TABLET 10 MG PO (20:58)
[2024-08-13] MEDS: clonazePAM 0.5 MG TABLET 0.25 MG PO (20:59)
[2024-08-13] MEDS: Atorvastatin Calcium 10 MG TABLET PO (21:01)
[2024-08-13] MEDS: oxyCODONE HCl Immed Release 5 MG TABLET PO (21:01)
[2024-08-13] MEDS: Primidone 50 MG TABLET PO (21:01)
[2024-08-13] MEDS: QUEtiapine Fumarate 25 MG TABLET PO (21:01)
[2024-08-14] VITALS (8 sets, daily range): BP systolic 103–166; BP diastolic 56–79; PULSE 54–88; RESP 12–18; TEMP 36.1–37.1; O2SAT 93–99
[2024-08-14] MEDS: ceFAZolin Sodium/Dextrose,Iso 2 GM/50 ML PIGGYBACK IV (02:23)
[2024-08-14] MEDS: 0.9 % Sodium Chloride 1,000 ML 75 ML IVCONT ×2 (06:01→23:49)
[2024-08-14] MEDS: oxyCODONE HCl Immed Release 5 MG TABLET 10 MG PO ×4 (06:05→18:24)
[2024-08-14] MEDS: Acetaminophen 325 MG TABLET 975 MG PO ×3 (07:17→20:17)
[2024-08-14] MEDS: Fluticasone/Vilanterol 100/25 BLST.W.DEV 1 PUFF INHALE (07:31)
--- NOTE | 2024-08-14 08:44 | PC.NURSE ---
Physical therapy had gotten patient up in the chair for the first time since surgery. Before attempting to walk, patient became very pale, reported feeling faint and like she was going to guzmán, speech was slowed and head heavy although still responsive. Heart rate was low between 38 and 48 blood pressure 103/58. Surgeon and PA were alerted. Pt was returned to bed and put in trendelenburg with good effect. Pt returned to baseline.
[2024-08-14 08:45] LABS: Glucose, Whole Blood 133 mg/dL (60-115)
[2024-08-14] MEDS: Cholecalciferol (Vitamin D3) 25 MCG TABLET 50 MCG PO (08:51)
[2024-08-14] MEDS: Fluticasone Propionate Nasal 16 GM SPRAY 2 SPRAY NOSTRIL-B (08:51)
[2024-08-14] MEDS: Folic Acid 1 MG TABLET PO (08:52)
[2024-08-14] MEDS: Docusate Sodium 100 MG CAPSULE PO ×2 (08:52→20:17)
[2024-08-14] MEDS: Gabapentin 300 MG CAPSULE PO ×3 (08:52→20:17)
[2024-08-14] MEDS: DULoxetine HCl 30 MG CAPSULE.DR PO (08:52)
--- NOTE | 2024-08-14 09:57 | MHC.CM.PN ---
Patient lives in an apartment alone. Ambulates w/ cane and walker. Daughter is CHEMICAL TECHNICIAN 18 hrs/wk and assists w/ all care. PCP Viky Kaur MD No HCP. CM provided education and offered assistance. Patient declined. DP: PT rec STR. Patient prefers home w/ services and daughter will stay with patient. [facility] is preferred. Daughter will transport. CM will continue to follow.
[2024-08-14] MEDS: Fenofibrate 160 MG TABLET PO (11:32)
--- NOTE | 2024-08-14 16:39 | HO.NEURO.PN ---
Neurosurgery Operative Note Date of Service: 08/14/24 Narrative: Debbie is a pleasant 64-year-old female who is status post L5-S1 Transkambin lumbar fusion yesterday with Dr. Lei. She was seen lying in bed this morning on . I saw her again for a 2nd time later this afternoon to check back in with her and see if she was feeling any better. Overall she has been doing well since surgery, however she did have some issues with pain control and ambulation today. She was able to ambulate to the bathroom with assistance, and is tolerating her current diet. She states that the pain is primarily in her low back, but does also report difficulties with left lower extremity weakness when attempting to ambulate. No new neurological deficits. The patient has about 4/5 strength with left-sided EHL and dorsiflexion. The rest of her lower extremity strength is 5/5. She has no significant sensational deficits on exam. Posterior dressings are clean, dry, with no significant staining. No obvious edema or fluctuance. Lorna 64-year-old female who is status post L5-S1 Transkambin lumbar fusion yesterday with Dr. Lei. She reports that overall she is feeling better today than she was yesterday, but did struggle with pain control overnight and has had difficulties with ambulation. Physical therapy did evaluate her and recommended transfer to inpatient rehab. This was discussed with the patient who states she does not want to go to rehab, and has 2 daughters at home who will help her with her recovery. I will complete a vkes-ws-hrky encounter note for the patient and recommend home physical therapy/nursing. The patient was evaluated by Dr. Lei this morning as well, who understands and agrees to this plan. Jag Lei MD,PhD [facility]
--- NOTE | 2024-08-14 16:44 | P.DS_ITS ---
DS: Providers Provider Date of admission: 08/13/24 06:17 Primary care physician: Viky Kaur MD Physical Exam Vital Signs: Vital Signs: Last Vital Signs Temp 96.9 F 08/14/24 16:12 Pulse 85 08/14/24 16:12 Resp 18 08/14/24 16:12 BP 139/64 08/14/24 16:12 Pulse Ox 93 08/14/24 16:12 O2 Del Method Room Air 08/14/24 16:12 O2 Flow Rate 2 08/13/24 19:17 BMI result Body Mass Index 35.1 DS: Data Data Completed and Pending Labs on day of discharge: Laboratory Results - last 24 hr 08/14/24 08:35 POC Glucose 133 H Discharge Plan Discharge Anticipated Discharge Date/Time: 08/15/24 08:00 Patient Disposition: Home Health Service Discharge Diagnosis: s/p L5-S1 TKLIF. Referrals: Viky Kaur MD [Primary Care Provider] - 1 Week Discharge Medications: Continued cyanocobalamin (vitamin B-12) 1,000 mcg/mL solution 1,000 mcg IM Q4W 30 Days Qty: 2 3RF alclometasone 0.05 % cream 1 appl topical BID PRN (Reason: itching) Qty: 15 0RF albuterol sulfate [Ventolin HFA] 90 mcg/actuation HFA aerosol inhaler 2 puff inhalation Q4-6H PRN (Reason: for dyspnea) Qty: 18 2RF tramadol 50 mg tablet 50 mg PO Q6H PRN (Reason: pain) Qty: 20 0RF diclofenac sodium 75 mg tablet,delayed release (DR/EC) 75 mg PO BID PRN (Reason: pain) Qty: 60 1RF fenofibrate 160 mg tablet 160 mg PO QNOON (DME) SHOWER CHAIR See Rx Instructions .Route .MEDSUPPLY Qty: 1 0RF Rx Instructions: As directed (DME) CANE See Rx Instructions .Route .MEDSUPPLY Qty: 1 0RF Rx Instructions: As directed (DME) WALKER WITH SEAT AND CHAIR See Rx Instructions .Route .MEDSUPPLY Qty: 1 0RF Rx Instructions: As directed (DME) blood pressure monitor [Blood Pressure Kit] Kit See Rx Instructions .ROUTE .MEDSUPPLY Qty: 1 0RF Rx Instructions: As directed zolpidem 10 mg tablet 10 mg PO BEDTIME duloxetine 30 mg capsule,delayed release(DR/EC) 30 mg PO DAILY quetiapine 25 mg tablet 25 mg PO BEDTIME gabapentin 300 mg capsule 300 mg PO TID 30 Days Qty: 90 0RF clonazepam 0.5 mg tablet 0.25 mg PO BEDTIME Qty: 30 0RF Rx Instructions: administer 30 minutes before bedtime diclofenac sodium [Voltaren Arthritis Pain] 1 % gel 4 g topical QID Qty: 100 2RF Rx Instructions: apply to single knee, ankle, foot; for foot includes sole/toes/top of foot fluticasone propionate [Flonase Allergy Relief] 50 mcg/actuation spray,suspension 2 spray intranasal DAILY Qty: 16 11RF Rx Instructions: administer into each nostril folic acid 1 mg tablet 1 mg PO DAILY 90 Days Qty: 90 3RF primidone 50 mg tablet 50 mg PO BEDTIME Qty: 30 2RF cholecalciferol (vitamin D3) 50 mcg (2,000 unit) capsule 50 mcg PO DAILY 90 Days Qty: 90 3RF fluticasone propion-salmeterol [Wixela Inhub] 250-50 mcg/dose blister with device 1 inh inhalation BID 90 Days Qty: 3 3RF metoprolol succinate 25 mg tablet extended release 24 hr 25 mg PO DAILY Qty: 90 1RF simvastatin 10 mg tablet 10 mg PO BEDTIME Qty: 90 3RF Diet: Advance to usual diet Activity on Discharge: As tolerated Stand Alone Forms: Patient Portal Discharge page Print Language: Nicaraguan Activity Restrictions/Additional Instructions: After your spinal surgery we ask you to observe the following restrictions/guidelines: Activity: It is normal to feel some discomfort as you increase your activity, but that will improve with time. It is normal to have leg pain after the surgery, this will resolve with time. We ask you avoid heavy lifting or acitivities that cause pain. As a general rule, 8lbs is a safe limit for lifting right after surgery. Walk as much as you feel comfortable but not to exhaustion. You will feel extra tired the first few days after surgery. Stay well hydrated. It is OK to walk up and down stairs You may return to driving when you are off narcotics (such as vicodin, oxycodone, dilaudid, etc), and you are back to normal functional capacity. If you have any concerns please check with office before driving. Return to work is specific to each patient and each surgery, so please speak with your doctor/PA at first follow up. Please bring paperwork such as FMLA at that time if you need it filled out. Medications: We recommend you take 1,000mg Tylenol every 8 hours for the first few weeks after surgery, if you do not have any liver issues and can tolerate this medica tion. Do not exceed 4,000mg daily. We will provide you with a prescription for methocarbamol (a muscle relaxer), gabapentin (a nerve allyssa), and hydroxyzine (anti-histamine) to take alongside your narcotic pain control medications as needed to aid in pain control. We will give you a short supply of narcotics after surgery (usually one weeks worth). If you need more please call the office but do not use more than prescribed. You will need to give our office 48 hours notice if you need narcotics refilled and we do not fill narcotics on weekends or evenings. If you are on a narcotic, it is a good idea to take a stool softener such as colace or senna to avoid constipation If you take blood thinner such as aspirin, Plavix, Coumadin, Effient, Eliquis etc for conditions such as Afib, DVT, Pulmonary embolus, coronary disease, stents etc please speak with your surgeon about specific details as to when you can resume these medications. You can resume NSAIDs on post op day 1 (eg: Motrin, Naproxen, etc). Follow up: Please call the office, , after surgery to arrange a 3 week follow up for wound check. Wound Care: You may remove your dressing on the first day after surgery. ?You may ?leave open to air. Please do not remove the steri strips underneath. they will fall off on their own in one week. IT IS NORMAL FOR THE WOUND TO OOZE OR BE BLOODY FOR A FEW DAYS AFTER SURGERY. ?IF THIS HAPPENS JUST PLACE NEW DRESSING OVER IT TO AVOID STAINING CLOTHES. You may shower on post op day # 1 We ask that you do not let the water soak the wound. If it does get wet, just towel dry lightly. Please do not scrub your incision or place any type of chemical/ointment on the wound. No tub baths, pools or jacuzzis for one month. If you have any leaking or redness from your wound, or fevers, please call the office. Care Plan Goals: Return to normal activity as tolerated Health Concerns: None Plan of Treatment: Follow-up in clinic in 2-3 weeks Assessment: Debbie is a pleasant 64-year-old female who is status post L5-S1 Transkambin lumbar fusion yesterday with Dr. Lei. She was seen lying in bed this morning on . She initially reported quite a deal of pain, and difficul ties with engaging full strength in her lower extremities. I saw her again for a 2nd time later this afternoon to check back in with her and see if she was feeling any better. She seemed to be doing much better and was accompanied by her family. Overall she has been doing well since surgery, however she did have some issues with pain control and ambulation in the immediate postoperative period as described. She has been able to ambulate to the bathroom with assistance, and is tolerating her current diet. She states that the pain is primarily in her low back, but does also report pain into left lower extremity when attempting to ambulate. No new neurological deficits. The patient has about 4/5 strength with left- sided EHL and dorsiflexion. The rest of her lower extremity strength is 5/5. She has no significant sensational deficits on exam. Posterior dressings are clean, dry, with no significant staining. No obvious edema or fluctuance. Lorna 64-year-old female who is status post L5-S1 Transkambin lumbar fusion yesterday with Dr. Lei. She reports that overall she is feeling better today than she was yesterday, but did struggle with pain control overnight and has had difficulties with ambulation. Physical therapy did evaluate her and recommended transfer to inpatient rehab. This was discussed with the patient who states she does not want to go to rehab, and has 2 daughters at home who will help her with her recovery. We discussed having her discharge home on 08/15/23 in the morning, and she is agreeable to this. I will complete a efar-cq-ryoa encounter note for the patient and recommend home physical therapy/nursing. The patient was evaluated by Dr. Lei this morning as well, who understands and agrees to this plan.
[2024-08-14] MEDS: methocarbamoL 750 MG TABLET PO (17:49)
[2024-08-14] MEDS: clonazePAM 0.5 MG TABLET 0.25 MG PO (20:16)
[2024-08-14] MEDS: Zolpidem Tartrate 5 MG TABLET 10 MG PO (20:17)
[2024-08-14] MEDS: Atorvastatin Calcium 10 MG TABLET PO (20:17)
[2024-08-14] MEDS: QUEtiapine Fumarate 25 MG TABLET PO (20:17)
[2024-08-14] MEDS: Primidone 50 MG TABLET PO (20:17)
[2024-08-15] MEDS: Acetaminophen 325 MG TABLET 975 MG PO ×2 (02:45→08:06)
[2024-08-15] MEDS: oxyCODONE HCl Immed Release 5 MG TABLET 10 MG PO ×2 (02:48→06:44)
[2024-08-15 05:03] VITALS: BP 115/56; PULSE 81; RESP 18; TEMP 37.1; O2SAT 94
[2024-08-15 08:04] VITALS: BP 149/67; PULSE 78; RESP 18; TEMP 36.1; O2SAT 95
[2024-08-15] MEDS: DULoxetine HCl 30 MG CAPSULE.DR PO (08:06)
[2024-08-15] MEDS: Gabapentin 300 MG CAPSULE PO (08:06)
[2024-08-15] MEDS: Cholecalciferol (Vitamin D3) 25 MCG TABLET 50 MCG PO (08:06)
[2024-08-15] MEDS: Metoprolol Succinate ER 25 MG TAB.ER.24H PO (08:06)
[2024-08-15] MEDS: Folic Acid 1 MG TABLET PO (08:06)
[2024-08-15] MEDS: Docusate Sodium 100 MG CAPSULE PO (08:06)
--- NOTE | 2024-08-15 08:20 | HO.POSTANES ---
Post Anesthesia Evaluation Post Anesthesia Evaluation Date of Service: 08/15/24 Vital Signs: Vital Signs Temp Pulse Resp BP Pulse Ox O2 Del Method 08/15/24 08:04 97.0 F 78 18 149/67 H 95 Room Air 08/15/24 05:03 98.7 F 81 18 115/56 L 94 Room Air 08/14/24 22:00 98.6 F 81 18 124/59 L 96 Room Air Anesthesia: General Endotracheal-GETA Mental Status: Awake Pain Control: Satisfactory Nausea/Vomiting: None Hydration: Adequate Anesthesia-Related Issues: No Anes. Related Issues
[2024-08-15] MEDS: Fluticasone/Vilanterol 100/25 BLST.W.DEV 1 PUFF INHALE (08:30)
[2024-08-15 08:32] VITALS: PULSE 97; RESP 18; O2SAT 97
[2024-08-15 08:55] VITALS: PULSE 97
--- NOTE | 2024-08-15 09:11 | MHC.CM.PN ---
Per PA, patient medically cleared for dc home w/ new [facility] services. Daughter to transport.
--- NOTE | 2024-08-15 09:19 | P.F2F_ITS ---
Service Date Service Date: 08/15/24 Encounter Date of encounter: 08/15/24 Reasons for Services Signs and symptoms assessed: post op left foot weakness Reason for retirement: neurological assessment, wound care, postoperative assessment and/or care and medication treatment Reason for physical therapy: home safety and mobility, therapeutic exercises, assess need for DME and ADL training Homebound: Leaving the home is medically contraindicated at this time without the asist of a device and/or another person due th the listed conditions above and below. Reason homebound: unsteady gait / fall risk, leg weakness, pain with ambulation and pain with transfers Certification: Based on the above findings, I certify that this patient is confined to the home and needs intermittent retirement care, physical therapy and/or speech therapy, or continues to need occupational therapy. The patient is under my care, and I have initiated the establishment of the plan of care. The patient will be followed by a physician who will periodically review the plan of care. Time Spent With Patient Time: Total time managing care of this patient today _5___ minutes.
--- NOTE | 2024-08-15 09:20 | HO.NEURO.PN ---
Neurosurgery Operative Note Date of Service: 08/15/24 Narrative: Postop day 2., L5-S1 trans Kambin lumbar interbody fusion Patient reports a lot of back pain, but otherwise does not report any leg pain. She reports her left foot is still weak but does not report any numbness. She is tolerating a diet but her appetite is not good. She has been voiding small amounts but otherwise feels like she is at her baseline from that standpoint. Physical exam: Patient is awake alert oriented no acute distress, she is sitting up in a chair. She has about a 2-3/5 left dorsiflexion weakness. She is able to move her big toe with about 3/5 strength as well. Plantar flexion is normal. Quadriceps strength is normal. She has normal sensation to light touch. Back dressing is clean and dry. Impression: Postop day 2. L5-S1 trans Kambin lumbar interbody fusion, patient looks like clinically her left foot weakness is slightly worse. It is not unusual to see this would trans Jj as there may be some swelling in the foramen. I reassured the patient that this should get better over time. I would like her to have PT VNA at home just in light of the weakness of the foot to help her with exercises to make sure she is safe getting around. The patient tells me her daughter can help her at home to but it would be best to have some therapy/VNA to oversee the situation as well. I spoke with Dr. Lei, we can discharge her home today. I will call in her prescriptions to the pharmacy here at [facility]. All activity guidelines in instructions were discussed with the patient.
--- NOTE | 2024-08-15 09:23 | P.DS_ITS ---
DS: Providers Provider Date of Service: 08/13/24 Date of admission: 08/13/24 06:17 Date of discharge: 08/15/24 Primary care physician: Viky Kaur MD Admitting clinician: Yosef Lei DS: Diagnosis Discharge Diagnosis (1) Lumbar spondylosis: Status: Acute DS: Summary Hospital Course Hospital Course: Patient was admitted for elective surgery on August 13. She underwent a procedure without complication. She was brought to the recovery room then subsequently up to the 3rd floor where she began to recovery. She had an uneventful 1st night, but was complaining of back pain. She was slow to get up. She was maintained on IV Tylenol, pain medications and muscle relaxers. She seemed to be slightly weak in her left foot on postoperative day 1. We saw her with PT we initially recommended she go to rehab but the patient wanted to go home. We kept her for another day just to monitor her pain and the weakness in her foot. On postop day 2., her weakness is slightly worse, maybe due to some swelling in the foramen due to the trans Kambin approach. Sensation is normal and she does not have any pain down her leg. There is a little bit of discomfort in her calf on the left side which may be part of the L5 distribution. She is able to get around with a walker. Since the patient does not want to go to rehab the plan will be to discharge her home with PT/VNA. Patient was given all discharge instructions and activity guidelines. We will want to see her back in the office. I will call in a prescription to the pharmacy here at [facility]. I reassured her that the weakness in her foot should get better over the course of the next week or 2. Status at Discharge Functional status at discharge: uses cane/walker Overall status at discharge: patient is progressing back to baseline Time Attestation Total time managing care of this patient today: 8 mintues. Discharge Coordination Time (in mins): Eight Quality: Safe Use of Opioids Does Pt have an Active Cancer Diagnosis on the Problem List?: No Quality: Stroke Does the patient have a stroke diagnosis?: No Physical Exam Vital Signs: Vital Signs: Last Vital Signs Temp 97.0 F 08/15/24 08:04 Pulse 97 08/15/24 08:55 Resp 18 08/15/24 08:32 BP 149/67 H 08/15/24 08:04 Pulse Ox 95 08/15/24 08:04 O2 Del Method Room Air 08/15/24 08:04 O2 Flow Rate 2 08/13/24 19:17 BMI result Body Mass Index 35.1 Discharge Plan Discharge Anticipated Discharge Date/Time: 08/15/24 08:00 Patient Disposition: Home Health Service Discharge Diagnosis: s/p L5-S1 TKLIF. Referrals: Rico VAZQUEZ [Outside] - 1 Day (Rico MORRISONA will call you to schedule appointments) Viky Kaur MD [Primary Care Provider] - 1 Week Discharge Medications: New docusate sodium [Colace] 100 mg capsule 100 mg PO BID Qty: 20 0RF oxycodone 5 mg tablet See Rx Instructions .ROUTE .COMPLEX PRN (Reason: pain) Qty: 40 0RF Rx Instructions: 1-2 tabs po q4 hours prn pain; Partial Fill upon patient request. methocarbamol 500 mg tablet 500 mg PO TID Qty: 30 0RF gabapentin 300 mg capsule 300 mg PO TID Qty: 90 0RF Continued cyanocobalamin (vitamin B-12) 1,000 mcg/mL solution 1,000 mcg IM Q4W 30 Days Qty: 2 3RF alclometasone 0.05 % cream 1 appl topical BID PRN (Reason: itching) Qty: 15 0RF albuterol sulfate [Ventolin HFA] 90 mcg/actuation HFA aerosol inhaler 2 puff inhalation Q4-6H PRN (Reason: for dyspnea) Qty: 18 2RF tramadol 50 mg tablet 50 mg PO Q6H PRN (Reason: pain) Qty: 20 0RF diclofenac sodium 75 mg tablet,delayed release (DR/EC) 75 mg PO BID PRN (Reason: pain) Qty: 60 1RF fenofibrate 160 mg tablet 160 mg PO QNOON (DME) SHOWER CHAIR See Rx Instructions .Route .MEDSUPPLY Qty: 1 0RF Rx Instructions: As directed (DME) CANE See Rx Instructions .Route .MEDSUPPLY Qty: 1 0RF Rx Instructions: As directed (DME) WALKER WITH SEAT AND CHAIR See Rx Instructions .Route .MEDSUPPLY Qty: 1 0RF Rx Instructions: As directed (DME) blood pressure monitor [Blood Pressure Kit] Kit See Rx Instructions .ROUTE .MEDSUPPLY Qty: 1 0RF Rx Instructions: As directed zolpidem 10 mg tablet 10 mg PO BEDTIME duloxetine 30 mg capsule,delayed release(DR/EC) 30 mg PO DAILY quetiapine 25 mg tablet 25 mg PO BEDTIME gabapentin 300 mg capsule 300 mg PO TID 30 Days Qty: 90 0RF clonazepam 0.5 mg tablet 0.25 mg PO BEDTIME Qty: 30 0RF Rx Instructions: administer 30 minutes before bedtime diclofenac sodium [Voltaren Arthritis Pain] 1 % gel 4 g topical QID Qty: 100 2RF Rx Instructions: apply to single knee, ankle, foot; for foot includes sole/toes/top of foot fluticasone propionate [Flonase Allergy Relief] 50 mcg/actuation spray,suspension 2 spray intranasal DAILY Qty: 16 11RF Rx Instructions: administer into each nostril folic acid 1 mg tablet 1 mg PO DAILY 90 Days Qty: 90 3RF primidone 50 mg tablet 50 mg PO BEDTIME Qty: 30 2RF cholecalciferol (vitamin D3) 50 mcg (2,000 unit) capsule 50 mcg PO DAILY 90 Days Qty: 90 3RF fluticasone propion-salmeterol [Wixela Inhub] 250-50 mcg/dose blister with device 1 inh inhalation BID 90 Days Qty: 3 3RF metoprolol succinate 25 mg tablet extended release 24 hr 25 mg PO DAILY Qty: 90 1RF simvastatin 10 mg tablet 10 mg PO BEDTIME Qty: 90 3RF Discharge Orders: Discharge Order (Routine); Ordered 08/15/24 Ordered By: Paulo Carlson Diet: Advance to usual diet Activity on Discharge: As tolerated Stand Alone Forms: Patient Portal Discharge page Print Language: Setswana Activity Restrictions/Additional Instructions: After your spinal surgery we ask you to observe the following restrictions/guidelines: Activity: It is normal to feel some discomfort as you increase your activity, but that will improve with time. It is normal to have leg pain after the surgery, this will resolve with time. We ask you avoid heavy lifting or acitivities that cause pain. As a general rule, 8lbs is a safe limit for lifting right after surgery. Walk as much as you feel comfortable but not to exhaustion. You will feel extra tired the first few days after surgery. Stay well hydrated. It is OK to walk up and down stairs You may return to driving when you are off narcotics (such as vicodin, oxycodone, dilaudid, etc), and you are back to normal functional capacity. If you have any concerns please check with office before driving. Return to work is specific to each patient and each surgery, so please speak with your doctor/PA at first follow up. Please bring paperwork such as FMLA at that time if you need it filled out. Medications: We recommend you take 1,000mg Tylenol every 8 hours for the first few weeks after surgery, if you do not have any liver issues and can tolerate this medication. Do not exceed 4,000mg daily. We will provide you with a prescription for methocarbamol (a muscle relaxer), gabapentin (a nerve allyssa), and hydroxyzine (anti-histamine) to take alongside your narcotic pain control medications as needed to aid in pain control. We will give you a short supply of narcotics after surgery (usually one weeks worth). If you need more please call the office but do not use more than prescribed. You will need to give our office 48 hours notice if you need narcotics refilled and we do not fill narcotics on weekends or evenings. If you are on a narcotic, it is a good idea to take a stool softener such as colace or senna to avoid constipation If you take blood thinner such as aspirin, Plavix, Coumadin, Effient, Eliquis etc for conditions such as Afib, DVT, Pulmonary embolus, coronary disease, stents etc please speak with your surgeon about specific details as to when you can resume these medications. You can resume NSAIDs on post op day 1 (eg: Motrin, Naproxen, etc). Follow up: Please call the office, , after surgery to arrange a 3 week follow up for wound check. Wound Care: You may remove your dressing on the first day after surgery. ?You may ?leave open to air. Please do not remove the steri strips underneath. they will fall off on their own in one week. IT IS NORMAL FOR THE WOUND TO OOZE OR BE BLOODY FOR A FEW DAYS AFTER SURGERY. ?IF THIS HAPPENS JUST PLACE NEW DRESSING OVER IT TO AVOID STAINING CLOTHES. You may shower on post op day # 1 We ask that you do not let the water soak the wound. If it does get wet, just towel dry lightly. Please do not scrub your incision or place any type of chemical/ointment on the wound. No tub baths, pools or jacuzzis for one month. If you have any leaking or redness from your wound, or fevers, please call the office. Care Plan Goals: Return to normal activity as tolerated Health Concerns: None Plan of Treatment: Follow-up in clinic in 2-3 weeks Assessment: Debbie is a pleasant 64-year-old female who is status post L5-S1 Transkambin lumbar fusion yesterday with Dr. Lei. She was seen lying in bed this morning on . She initially reported quite a deal of pain, and difficulties with engaging full strength in her lower extremities. I saw her again for a 2nd time later this afternoon to check back in with her and see if she was feeling any better. She seemed to be doing much better and was accompanied by her family. Overall she has been doing well since surgery, however she did have some issues with pain control and ambulation in the immediate postoperative period as described. She has been able to ambulate to the bathroom with assistance, and is tolerating her current diet. She states that the pain is primarily in her low back, but does also report pain into left lower extremity when attempting to ambulate. No new neurological deficits. The patient has about 4/5 strength with left- sided EHL and dorsiflexion. The rest of her lower extremity strength is 5/5. She has no significant sensational deficits on exam. Posterior dressings are clean, dry, with no significant staining. No obvious edema or fluctuance. Lorna 64-year-old female who is status post L5-S1 Transkambin lumbar fusion yesterday with Dr. Lei. She reports that overall she is feeling better today than she was yesterday, but did struggle with pain control overnight and has had difficulties with ambulation. Physical therapy did evaluate her and recommended transfer to inpatient rehab. This was discussed with the patient who states she does not want to go to rehab, and has 2 daughters at home who will help her with her recovery. We discussed having her discharge home on 08/15/23 in the morning, and she is agreeable to this. I will complete a [id number] encounter note for the patient and recommend home physical therapy/nursing. The patient was evaluated by Dr. Lei this morning as well, who understands and agrees to this plan.
== END 2024-08-15 10:40 | disposition home health service (06) | DRG 304 ==
LOC: HO.SSSA 06:20 → HO.S3 12:41
PROVIDERS: Admitting Provider Neurological Surgery; PCP Internal Medicine; Visit Provider Neurological Surgery
PROC: 0SG33A0 Fusion of Lumbosacral Joint with Interbody Fusion Device, Anterior Approach, Anterior Column, Percutaneous Approach (ICD-10-PCS; principal; 2024-08-13 07:30)
DX: M51.17 Intervertebral disc disorders with radiculopathy, lumbosacral region (principal); Z79.51 Long term (current) use of inhaled steroids; Z79.899 Other long term (current) drug therapy
CPT/HCPCS: 82947; 86850; 86900; 86901; 94640; 97116; 97162; C1713; C1889; J0131; J0330; J0665; J0666; J0690; J1100; J1171; J1596; J2003; J2250; J2371; J2405; J2704; J3010; J3420; L8699

== ENCOUNTER → 2024-08-13 06:17 | Outpatient (BNV) | payer OTHER, SELFPAY | PROVIDERS: Admitting Provider Neurological Surgery; PCP Internal Medicine; Visit Provider Neurological Surgery | DX: M54.16 Radiculopathy, lumbar region (principal); M51.360 Other intervertebral disc degeneration, lumbar region with discogenic back pain only | CPT/HCPCS: 20930; 22558; 22612; 22840; 22853; 63056 ==

== ENCOUNTER 2024-09-03 13:24 | Outpatient (AMB) | payer OTHER, SELFPAY ==
--- NOTE | 2024-09-03 13:28 | A.SPINEOV_ITS ---
Intake Visit Reasons: 1st post op Intake Note: Ms. Gonzalez is here today for her 1st post op appointment. Winder Contort Operator Required: No Allergies Fruit Skin Allergy (Severe, Uncoded 08/13/24 06:16) Anaphylaxis Assessment & Plan Assessment & Plan (1) Lumbago: Code(s): M54.50 - Low back pain, unspecified Category: Medical Plan Procedure: L5-S1 TKLIF Debbie is a pleasant 64-year-old female who underwent L5-S1 transkambin lumbar interbody fusion about [address] Lei. To recap she had a somewhat complicated postoperative course as she had fairly severe left leg pain after surgery. We attempted to mitigate this with prescription medications, however her calvert was largely persistent despite multimodal pain regimen (Dilaudid, Methocarbamol, Gabapentin). Today, she reports primarily a similar left leg pain. Her low back pain is not nearly as significant, and actually feels improved compared to prior to surgery. When describing her left leg pain she runs her hand over the lateral aspect of her left hip down the left lateral thigh over the left knee and down toward the anterior tibialis. Thankfully, she does report good relief for pain with the Dilaudid medication, but is currently out of her muscle relaxers, and gabapentin. Her daughter accompanied her to this visit today, who helped her relay some of her history. They asked several questions regarding the postoperative healing course, all of which I answered to the best of my ability. No new neurological deficits. The patient ambulates well with the assistance of a cane. Her posterior incision sites appear closed and well healing. I would like Debbie to follow up again with me in 6 weeks and obtain a set of x- rays. Jag Lei MD,PhD [facility] Orders: Orders XR lumbar spine 4V min Today M54.50 - Low back pain, unspecified Medications: Refilled gabapentin 300 mg PO TID 90 caps 0RF hydromorphone Take 1/2 tablet orally every 4 hours PRN; Partial Fill upon patient request. 21 tabs 0RF pain methocarbamol 500 mg PO TID 30 tabs 1RF Coding Level of Care Code Global (78916) Diagnoses Lumbago M54.50
== END 2024-09-03 13:55 | disposition home or self-care (01) ==
LOC: HO.HNS 13:24
PROVIDERS: PCP Internal Medicine; Visit Provider Physician Assistant
DX: M54.50 Low back pain, unspecified (principal)
CPT/HCPCS: 99024

== ENCOUNTER 2024-09-03 13:24 | Outpatient (REF) | payer OTHER, SELFPAY | END 2024-09-03 13:25 | disposition home or self-care (01) | LOC: HO.HOSX 13:24 | PROVIDERS: PCP Internal Medicine; Visit Provider Physician Assistant | DX: Z98.1 Arthrodesis status (principal); M54.50 Low back pain, unspecified | CPT/HCPCS: 99212 ==

== ENCOUNTER 2024-09-12 10:08 | Outpatient (AMB) | payer OTHER, SELFPAY ==
--- NOTE | 2024-09-12 10:16 | AM.OFFVISNUR ---
Intake Visit Reasons: B-12 shot Allergies Fruit Skin Allergy (Severe, Uncoded 08/13/24 06:16) Anaphylaxis Office Meds cyanocobalamin (vitamin B-12) 1,000 mcg/mL injection solution Performing Provider: Viky Kaur MD [facility] Administered by: Mary Fairbanks LPN on 09/12/24 10:16 Dose Route Admin Location Dispensed Lot Number Expiration Date [facility] Screw Machine Set Up Operator Tool 1,000 mcg IM right deltoid 1 mL [id number] 05/17/25 68055-165-10 [employer] Assessment & Plan Assessment & Plan Orders: Orders AMB Vitamin B12 Injection Patient Supplied Today E53.8 - Deficiency of other specified B group vitamins Medications: New cyanocobalamin (vitamin B-12) 1,000 mcg IM ONCE 1 mL 0RF E53.8 - Deficiency of other specified B group vitamins Coding
== END 2024-09-12 10:15 | disposition home or self-care (01) ==
LOC: HO.HMCH 10:09
PROVIDERS: PCP Internal Medicine; Visit Provider Internal Medicine
DX: E53.8 Deficiency of other specified B group vitamins (principal)

== ENCOUNTER → 2024-09-12 10:08 | Outpatient (BNVA) | payer OTHER, SELFPAY | PROVIDERS: PCP Internal Medicine; Visit Provider Internal Medicine | DX: E53.8 Deficiency of other specified B group vitamins (principal) | CPT/HCPCS: 96372; J3420 ==

== ENCOUNTER 2024-09-19 09:12 | Outpatient (REF) | payer OTHER, SELFPAY ==
--- OUTSIDE RECORDS SUMMARY | 2024-09-19 09:56 | XMS_ITS | Encounter Summary ---
Author Organization [facility] Address [address] [place] [address] Care Team Providers Care Hot Roll Laminator Name Role Phone Unavailable Primary Care Provider Unavailabl e Encounter Details Date Type Department Care Team (Latest Contact Info) Description 06/23/2020 Lab Requisition [facility] COVID Drive Through [address] [place] [address] [address] [place] [address] Paulo Kay PA-C [address] [place] [address] [phone] Encounter for laboratory testing for COVID-19 virus [...] Radha Mccoy, Ph.D., Laboratory DirectorTests performed at [email or web address] Nasopharyngeal swab / Unknown 06/23/2020 2:52 PM EST 06/23/2020 2:52 PM EST Narrative CARLALynne GONZALEZ Maya CAMERONDANIEL - 06/25/2020 11:54 AM EST Performed by [facility] [address] [place] [address], CLIA# [id number] and [place] License# [id number] Paluo Kay PA-C MICROBIOLOGY - NERAL ORDERABLES [place] GONZALEZ documented in this encounter Visit Diagnoses Diagnosis Encounter for laboratory testing for COVID-19 virus documented in this encounter
--- OUTSIDE RECORDS SUMMARY | 2024-09-19 09:56 | XMS_ITS | Clinical Summary ---
Author Organization [facility] Address [address] [place] [address] Care Team Providers Care Internist Medical Doctor Md Name Role Phone Unavailable Primary Care Provider [...]
== END 2024-09-19 09:13 | disposition home or self-care (01) ==
LOC: HO.HOSX 09:12
PROVIDERS: Visit Provider Physician Assistant
DX: Z13.89 Encounter for screening for other disorder (principal)

== ENCOUNTER 2024-09-23 09:12 | Outpatient (REF) | payer OTHER, SELFPAY ==
--- NOTE | ~2024-09-23 | XR_ITS ---
EXAMINATION: X-RAY LUMBAR SPINE 4 VIEWS. CLINICAL INFORMATION: Spondylosis without myelopathy or radiculopathy. TECHNIQUE: 4 views lumbar spine including flexion and extension. COMPARISON: June 05, 2024. FINDINGS: Transpedicular screws through the pedicles of L5 and S1. Status post intervertebral discs spacer placement at L5-S1. Grade 1 anterolisthesis L5-S1 in neutral position without reduction or worsening during flexion and/or extension. Marginal osteophyte formation and endplate sclerosis from L2 to L5. No lytic or blastic lesions. XR/XR lumbar spine 4V min IMPRESSION: Status post posterior fusion L5-S1 without instability. Multilevel mild spondylosis. Electronically signed by: Seymour Khoury MD 09/23/2024 01:18 PM EDT
--- OUTSIDE RECORDS SUMMARY | 2024-09-23 13:40 | XMS_ITS | Clinical Summary ---
Author Organization [facility] Address [address] [place] [address] Care Team Providers Care Community Midwife Name Role Phone Unavailable Primary Care Provider [...]
--- OUTSIDE RECORDS SUMMARY | 2024-09-23 13:40 | XMS_ITS | Encounter Summary ---
Author Organization [facility] Address [address] [place] [address] Care Team Providers Care Solutions Delivery Consultant Name Role Phone Unavailable Primary Care Provider Unavailabl e Encounter Details Date Type Department Care Team (Latest Contact Info) Description 06/23/2020 Lab Requisition [facility] COVID Drive Through [address] [place] [address] [address] [place] [address] Paulo Kay PA-C [address] [place] [phone] Encounter for laboratory testing for COVID-19 virus [...] Radha Mccoy, Ph.D., Laboratory DirectorTests performed at [facility] Nasopharyngeal swab / Unknown 06/23/2020 2:52 PM EST 06/23/2020 2:52 PM EST Narrative CARLALynne GONZALEZ Maya CAMERONDANIEL - 06/25/2020 11:54 AM EST Performed by [facility] [address] [place] [address], CLIA# [id number] and [place] License# [id number] Paulo Kay PA-C MICROBIOLOGY - NERAL ORDERABLES [place] GONZALEZ documented in this encounter Visit Diagnoses Diagnosis Encounter for laboratory testing for COVID-19 virus documented in this encounter
== END 2024-09-23 09:13 | disposition home or self-care (01) ==
LOC: HO.HOSX 09:12
PROVIDERS: Visit Provider Physician Assistant
DX: M54.16 Radiculopathy, lumbar region (principal); M47.816 Spondylosis without myelopathy or radiculopathy, lumbar region
CPT/HCPCS: 72110; 99212

== ENCOUNTER 2024-09-23 11:14 | Outpatient (AMB) | payer OTHER, SELFPAY ==
--- NOTE | 2024-09-23 11:15 | HO.SPINEOV ---
Intake Visit Reasons: recurring pain after surgery/with xrays Intake Note: Ms. Gonzalez is here today c/o recurring pain after surgery with x-rays. Software Quality Engineer Required: No Allergies Fruit Skin Allergy (Severe, Uncoded 08/13/24 06:16) Anaphylaxis Assessment & Plan Assessment & Plan (1) Lumbar radiculopathy: Code(s): M54.16 - Radiculopathy, lumbar region Category: Medical Plan Mrs Gonzalez is here in follow up today. About 6 weeks ago or so she underwent a left L5-S1 trans Kambin lumbar interbody fusion. Postoperatively she had some weakness and leg pain, that was expected to get better but unfortunately it has only continuing to get worse. She is very frustrated because it has been so long now the pain only seems to be escalating. Specifically it travels down her left leg into her left posterior thigh, posterior calf into the front of her tibial region to the top of her foot and her toes. She said it feels like pulsating electricity coming out the end of her foot. She has been on Dilaudid, gabapentin etc. and there has been no improvement. She also continues to have the weakness of her left foot as well. She is very frustrated with where she is at right now as she expected to be much further head if not almost healed at this point. On my exam, she is very uncomfortable, at times she is tearful and crying, her wounds have all healed up well, she is able to stand up on her own albeit very slowly. She has loss of sensation over the top of her foot with 3/5 weakness of her left tibialis, left EHL and left peroneus brevis and longus. I spoke with her and her daughter at length, I suspect this is nerve irritation related to the trans Kambin approach. Occasionally as well there maybe a small disc herniation near the nerve. I think we should obtain some imaging. Her x-rays today look okay with no signs of hardware failure. Unfortunately due to metal that is retained interbody she can not get an MRI, so we will order a noncontrast CT to evaluate. I also told her to double up on her gabapentin dose and will call her in a Quanlight Dosepak/Pepcid. I will review the imaging with Dr. Lei once it is completed. Paulo Lei MD, PhD [facility] Orders: Orders CT lumbar spine wo IV con Today M54.16 - Radiculopathy, lumbar region Medications: New methylprednisolone take as directed on package 4 mg PO DAILY 21 ea 0RF famotidine (Pepcid) 20 mg PO BID 14 tabs 0RF Coding Level of Care Code Global (95158) Diagnoses Lumbar radiculopathy M54.16
== END 2024-09-23 11:54 | disposition home or self-care (01) ==
LOC: HO.HNS 11:14
PROVIDERS: PCP Internal Medicine; Visit Provider Physician Assistant
DX: M54.16 Radiculopathy, lumbar region (principal)
CPT/HCPCS: 99024

== ENCOUNTER → 2024-09-23 11:20 | Outpatient (BNV) | payer OTHER, SELFPAY | PROVIDERS: Visit Provider Radiology Diagnostic Radiology | DX: M47.816 Spondylosis without myelopathy or radiculopathy, lumbar region (principal) | CPT/HCPCS: 72110 ==

== ENCOUNTER 2024-09-28 16:53 | Emergency (ER) | payer OTHER, SELFPAY ==
--- NOTE | ~2024-09-28 | CT_ITS ---
CLINICAL HISTORY: L leg pain CT lumbar spine without contrast Comparison: 02/15/2024 Findings: L5-S1 posterior fixation changes by means of bilateral pedicle screws and posterior stabilizing rods along with interbody device. Intact hardware without adjacent lucency to indicate loosening. Left L5-S1 neural foraminal fat appears obliterated with nonspecific soft tissue density, presumably disc material although hematoma or fluid collection is not excluded. Mild narrowing of the right L5-S1 neural foramen. No significant neural foraminal narrowing at the remaining levels. No findings of significant spinal canal narrowing. No acute fracture. No suspicious bone lesion. Regional soft tissues are within normal limits. IMPRESSION: 1. Severe left L5-S1 neural foraminal narrowing with complete obliteration of the neural foraminal fat with nonspecific soft tissue density. This could represent disc material, hematoma, or fluid collection. Consider MRI for further evaluation. This document has been electronically signed by: Jah Hubbard MD on 09/28/2024 20:21:42
[2024-09-28 17:07] VITALS: BP 186/88; PULSE 76; RESP 19; TEMP 36.6; O2SAT 97; BMI 30.1
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
[2024-09-28 20:00] VITALS: BP 206/94; PULSE 73; RESP 16; TEMP 36.7; O2SAT 100
--- NOTE | 2024-09-28 21:21 | PC.NURSE ---
provider made aware of pt headache, and back/leg pain. bp 206/94 right arm sitting. 216/103 left arm sitting. provider made aware.
[2024-09-28] MEDS: Morphine Sulfate Immed Release 15 MG TABLET PO (21:36)
--- NOTE | 2024-09-28 22:42 | PC.NURSE ---
Pt ambulated independently without discharge papers.
[2024-09-28 22:43] VITALS: BP 00/00; PULSE 0; RESP 0; TEMP -17.7; TEMP 0
== END 2024-09-28 22:45 | disposition home or self-care (01) ==
PROVIDERS: Emergency Provider Internal Medicine; PCP Internal Medicine
DX: M54.16 Radiculopathy, lumbar region (principal); M79.605 Pain in left leg; Z79.899 Other long term (current) drug therapy
CPT/HCPCS: 72131; 99284

== ENCOUNTER → 2024-09-28 17:21 | Outpatient (BNV) | payer OTHER, SELFPAY | PROVIDERS: PCP Internal Medicine; Visit Provider Radiology Diagnostic Radiology | DX: M99.63 Osseous and subluxation stenosis of intervertebral foramina of lumbar region (principal); M79.605 Pain in left leg | CPT/HCPCS: 72131 ==

== ENCOUNTER 2024-10-09 13:27 | Outpatient (REF) | payer OTHER, SELFPAY ==
--- NOTE | ~2024-10-09 | MR_ITS ---
CLINICAL HISTORY: M54.16 - Radiculopathy, lumbar region --- Additional Notes or Special Instructions: post op left leg pain MRI LUMBAR SPINE WITHOUT AND WITH CONTRAST Comparison: CT/SR - CT LUMBAR SPINE WO IV CON - 09/28/24 17:34 EDT Findings: The vertebral bodies are in satisfactory alignment. No acute fracture or osseous marrow replacement process. Conus medullaris terminates at the appropriate level. T12-L1: Unremarkable. L1-2: Unremarkable. L2-3: Small biforaminal disc protrusions and facet arthropathy. No significant spinal or foraminal stenosis. L3-4: No significant disc displacement. Facet arthropathy. No significant spinal or foraminal stenosis. L4-5: Mild disc bulge and facet arthropathy. No significant spinal or foraminal stenosis. L5-S1: Susceptibility artifact from posterior fusion hardware and metallic disc spacer limits evaluation. Small disc protrusion with no evidence for scar, hematoma or fluid collection. Facet arthropathy. No significant spinal stenosis. Mild right and moderate left foraminal stenoses. There is a 1.4 cm right renal cyst. Postsurgical changes in the lower lumbar paraspinous muscle and overlying subcutaneous tissues with no evidence for abnormal fluid collection. Impression: 1. Postsurgical changes L5-S1 with probable small residual disc protrusion. No significant spinal stenosis. Bilateral foraminal stenoses, left greater than right. This document has been electronically signed by: Tanisha Guillen DO on 10/09/2024 15:54:55
[2024-10-09] MEDS: gadobutroL 10 ML VIAL IVPUSH (14:38)
--- OUTSIDE RECORDS SUMMARY | 2024-10-09 15:55 | XMS_ITS | Encounter Summary ---
Author Organization [facility] Address [address] [place] [address] Care Team Providers Care Stone And Plate Preparer Apprentice Name Role Phone Unavailable Primary Care Provider Unavailabl e Encounter Details Date Type Department Care Team (Latest Contact Info) Description 06/23/2020 Lab Requisition [facility] COVID [address] Through [address] [place] [address] [address] [place] [address] Paulo Kay PA-C [address] [place] [address] [phone] Encounter for laboratory testing for COVID-19 virus Social History Tobacco Use Types Packs/Day Years Used Date Smoking Tobacco: Never Assessed Comments Unknown Sex and Gender Information Value Date Recorded Sex Assigned at Not on file Legal Sex Female 6:22 PM EST Gender Identity Not on file Sexual Orientation [...] Radha Mccoy, Ph.D., Laboratory DirectorTests performed at [facility] Nasopharyngeal swab / Unknown 06/23/2020 2:52 PM EST 06/23/2020 2:52 PM EST Narrative OK GONZALEZ - 06/25/2020 11:54 AM EST Performed by [facility] [address] [place] [address], CLIA# [id number] and [place] License# [id number] Paulo Kay PA-C MICROBIOLOGY - GENERAL OR DERABLES Final Result OK GONZALEZ documented in this encounter Visit Diagnoses Diagnosis Encounter for laboratory testing for COVID-19 virus documented in this encounter
--- OUTSIDE RECORDS SUMMARY | 2024-10-09 15:55 | XMS_ITS | Clinical Summary ---
Author Organization [facility] Address [address] [place] [address] Care Team Providers Care Toeing Stockings Name Role Phone Unavailable Primary Care Provider [...] on patient's age to complete this topic Insurance MEDICAID OUT [place] STATE [facility] [place] [address] [place] [address]
== END 2024-10-09 13:28 | disposition home or self-care (01) ==
LOC: HO.MRI 13:27
PROVIDERS: PCP Internal Medicine; Visit Provider Physician Assistant
DX: M54.16 Radiculopathy, lumbar region (principal)
CPT/HCPCS: 72158; A9585

== ENCOUNTER → 2024-10-09 13:29 | Outpatient (BNV) | payer OTHER, SELFPAY | PROVIDERS: PCP Internal Medicine; Visit Provider Radiology Diagnostic Radiology | DX: M99.63 Osseous and subluxation stenosis of intervertebral foramina of lumbar region (principal) | CPT/HCPCS: 72158 ==

== ENCOUNTER 2024-10-13 09:02 | Outpatient (AMB) | payer OTHER, SELFPAY ==
--- NOTE | 2024-10-13 09:10 | AM.OFFVISNUR ---
Intake Visit Reasons: b12 Allergies Fruit Skin Allergy (Severe, Uncoded 09/28/24 17:09) Anaphylaxis Office Meds cyanocobalamin (vitamin B-12) 1,000 mcg/mL injection solution Performing Provider: Viky Kaur MD Performing [facility] Administered by: Mary Fairbanks LPN on 10/13/24 09:10 Dose Route Admin Location Dispensed Lot Number Expiration Date [facility] [employer] 1,000 mcg IM right deltoid 1 mL [id number] 11/15/25 81096-195-26 FP Complete Assessment & Plan Assessment & Plan Orders: Orders AMB Vitamin B12 Injection Patient Supplied Today E53.8 - Deficiency of other specified B group vitamins Medications: New cyanocobalamin (vitamin B-12) 1,000 mcg IM ONCE 1 mL 0RF E53.8 - Deficiency of other specified B group vitamins Coding
--- OUTSIDE RECORDS SUMMARY | 2024-10-13 09:49 | XMS_ITS | Clinical Summary ---
Author Organization [facility] Address [address] [place] [address] Care Team Providers Care Bilingual Inside Sales Representative Name Role Phone Unavailable Primary Care Provider [...] this topic Insurance [place] [facility] [place] [address] [place] [address]
--- OUTSIDE RECORDS SUMMARY | 2024-10-13 09:49 | XMS_ITS | Encounter Summary ---
Author Organization [facility] Address [address] [place] [address] Care Team Providers Care Tower Operator Name Role Phone Unavailable Primary Care Provider Unavailabl e Encounter Details Date Type Department Care Team (Latest Contact Info) Description 06/23/2020 Lab Requisition [facility] COVID Drive Through [address] [place] [address] [address] [place] [address] Paulo Kay PA-C [address] [place] [address] [phone] Encounter for laboratory testing for COVID-19 virus [...] Radha Mccoy, Ph.D., Laboratory DirectorTests performed at [facility] Nasopharyngeal swab / Unknown 06/23/2020 2:52 PM EST 06/23/2020 2:52 PM EST Narrative OK GONZALEZ - 06/25/2020 11:54 AM EST Performed by [facility]., [address] [place] [address], CLIA# [id number] and [place] License# [id number] Paulo Kay PA-C MICROBIOLOGY - GENERAL OR DERABLES Final Result OK GONZALEZ documented in this encounter Visit Diagnoses Diagnosis Encounter for laboratory testing for COVID-19 virus documented in this encounter
== END 2024-10-13 09:11 | disposition home or self-care (01) ==
LOC: HO.HMCH 09:02
PROVIDERS: PCP Internal Medicine; Visit Provider Internal Medicine
DX: E53.8 Deficiency of other specified B group vitamins (principal)

== ENCOUNTER → 2024-10-13 09:02 | Outpatient (BNVA) | payer OTHER, SELFPAY | PROVIDERS: PCP Internal Medicine; Visit Provider Internal Medicine | DX: E53.8 Deficiency of other specified B group vitamins (principal) | CPT/HCPCS: 96372; J3420 ==

== ENCOUNTER 2024-10-15 13:14 | Outpatient (REF) | payer OTHER, SELFPAY ==
--- NOTE | ~2024-10-15 | XR_ITS ---
CLINICAL HISTORY: M54.50 - Low back pain, unspecified --- Additional Notes or Special Instructions: a p lat flex ex 4 views lumbar spine Comparison: DX/SR - XR LUMBAR SPINE 4V MIN - 09/23/24 11:20 EDT Findings: Stable straightening of the normal lordosis. Stable minimal grade 1 spondylolisthesis L5-S1 in neutral, flexion and extension. Redemonstration of L5-S1 discectomy and posterior fusion. No acute fractures or dislocation. No significant vertebral body compression deformity. Mild disc space narrowing and small endplate osteophytes from L2-L5. Redemonstration of a nonspecific metallic density in the dorsal soft tissues of the upper sacrum, best seen on the lateral projections. IMPRESSION: 1. Postsurgical changes L5-S1 with no visible complications. 2. Stable minimal grade 1 spondylolisthesis L5-S1 without instability. This document has been electronically signed by: Tanisha Guillen DO on 10/17/2024 14:12:10
== END 2024-10-15 13:15 | disposition home or self-care (01) ==
LOC: HO.HOSX 13:14
PROVIDERS: PCP Internal Medicine; Visit Provider Physician Assistant
DX: M54.50 Low back pain, unspecified (principal); Z98.890 Other specified postprocedural states
CPT/HCPCS: 72110; 99212

== ENCOUNTER 2024-10-15 13:14 | Outpatient (AMB) | payer OTHER, SELFPAY ==
--- NOTE | 2024-10-15 13:22 | HO.SPINEOV ---
Intake Visit Reasons: 2nd post op with Xrays Tool Setter Required: No Allergies Fruit Skin Allergy (Severe, Uncoded 09/28/24 17:09) Anaphylaxis Assessment & Plan Assessment & Plan (1) Lumbago: Code(s): M54.50 - Low back pain, unspecified Category: Medical Plan Procedure: L5-S1 trans Kambin lumbar interbody fusion Debbie is a pleasant 64 year old female who underwent L5-S1 transkambin lumbar fusion about 2 months ago. See previous office visit notes for specifics regarding this, including postoperative exams. Today she comes in to obtain an updated set of lumbar spine X-rays, and review the proposed surgical procedure. We extensively discussed the problem (continued stenosis of left foramen at L5) which was identified by Dr. Lei on postoperative MRI and utilized the spine models in office to explain the proposed procedure, which is a left L5 foraminotomy. I answered all questions she had to the best of my ability. We had a cancellation for a fusion surgery on 09/29/24, so I tentatively had our surgical technology instructor move a total disc arthroplasty from 09/30/24 to 09/29/24 and moved Debbie into the newly available spot on 09/30/24. She is in tremendous pain and the soonest opening was mid-November if I did not change the schedule. Jag Lei MD,PhD [facility] Coding Level of Care Code Global (94353) Diagnoses Lumbago M54.50
--- OUTSIDE RECORDS SUMMARY | 2024-10-15 14:33 | XMS_ITS | Encounter Summary ---
Author Organization [facility] Address [address] [place] [address] Care Team Providers Care Restaurant Hourly Manager Name Role Phone Unavailable Primary Care Provider Unavailabl e Encounter Details Date Type Department Care Team (Latest Contact Info) Description 06/23/2020 Lab Requisition [facility] COVID Drive Through [address] [place] [address] [address] [place] [address] Paulo Kay PA-C [address] [place] [address] [phone] Encounter for laboratory testing for COVID-19 virus [...] Radha Mccoy, Ph.D., Laboratory DirectorTests performed at [facility] Nasopharyngeal swab / Unknown 06/23/2020 2:52 PM EST 06/23/2020 2:52 PM EST Narrative OK GONZALEZ - 06/25/2020 11:54 AM EST Performed by [facility] [address] [place] [address], CLIA# [id number] and [place] License# [id number] Paulo Kay PA-C MICROBIOLOGY - GENERAL OR DERABLES Final Result OK GONZALEZ documented in this encounter Visit Diagnoses Diagnosis Encounter for laboratory testing for COVID-19 virus documented in this encounter
--- OUTSIDE RECORDS SUMMARY | 2024-10-15 14:33 | XMS_ITS | Clinical Summary ---
Author Organization [facility] Address [address] [place] [address] Care Team Providers Care Etcher Printed Circuit Boards Name Role Phone Unavailable Primary Care Provider [...] this topic Insurance MEDICAID OUT OF STATE [facility] [place] , [address] [place] [address]
== END 2024-10-15 14:19 | disposition home or self-care (01) ==
LOC: HO.HNS 13:15
PROVIDERS: PCP Internal Medicine; Visit Provider Physician Assistant
DX: M54.50 Low back pain, unspecified (principal)
CPT/HCPCS: 99024

== ENCOUNTER → 2024-10-15 13:27 | Outpatient (BNV) | payer OTHER, SELFPAY | PROVIDERS: PCP Internal Medicine; Visit Provider Radiology Diagnostic Radiology | DX: M54.50 Low back pain, unspecified (principal) | CPT/HCPCS: 72110 ==

== ENCOUNTER 2024-10-17 10:45 | Outpatient (AMB) | payer OTHER, SELFPAY ==
[2024-10-17 10:48] VITALS: BP 138/90; PULSE 74; O2SAT 98; BMI 34.0
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
--- OUTSIDE RECORDS SUMMARY | 2024-10-17 11:51 | XMS_ITS | Clinical Summary ---
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
--- OUTSIDE RECORDS SUMMARY | 2024-10-17 11:51 | XMS_ITS | Encounter Summary ---
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 Name Role Phone Unavailable Primary Care Provider Unavailabl e Encounter Details Date Type Department Care Team (Latest Contact Info) Description 06/23/2020 Lab Requisition [facility] COVID [address] Through [address] [place] [address] [address] [place] [address] Paulo Kay PA-C [address] [place] [address] [phone] Encounter for laboratory testing for COVID-19 virus [...] Radha Mccoy, Ph.D., Laboratory DirectorTests performed at [facility] Nasopharyngeal swab / Unknown 06/23/2020 2:52 PM EST 06/23/2020 2:52 PM EST Narrative [place] GONZALEZ - 06/25/2020 11:54 AM EST Performed by [facility] [address] [place] [address], CLIA# [id number] and [place] License# [id number] Paulo Kay PA-C MICROBIOLOGY - GENERAL OR DERABLES Final Result [facility] GONZALEZ documented in this encounter Visit Diagnoses Diagnosis Encounter for laboratory testing for COVID-19 virus documented in this encounter
== END 2024-10-17 11:12 | disposition home or self-care (01) ==
LOC: HO.HMCH 10:45
PROVIDERS: PCP Internal Medicine; Visit Provider Internal Medicine
DX: E78.00 Pure hypercholesterolemia, unspecified (principal); F33.1 Major depressive disorder, recurrent, moderate; E66.9 Obesity, unspecified; Z68.34 Body mass index [BMI] 34.0-34.9, adult; Z98.1 Arthrodesis status; R73.02 Impaired glucose tolerance (oral); J45.20 Mild intermittent asthma, uncomplicated; K21.9 Gastro-esophageal reflux disease without esophagitis; J30.9 Allergic rhinitis, unspecified

== ENCOUNTER → 2024-10-17 10:45 | Outpatient (BNVA) | payer OTHER, SELFPAY | PROVIDERS: PCP Internal Medicine; Visit Provider Internal Medicine | DX: J45.909 Unspecified asthma, uncomplicated (principal); E66.9 Obesity, unspecified; R73.02 Impaired glucose tolerance (oral); E78.00 Pure hypercholesterolemia, unspecified; J45.20 Mild intermittent asthma, uncomplicated; K21.9 Gastro-esophageal reflux disease without esophagitis; F33.1 Major depressive disorder, recurrent, moderate; M25.562 Pain in left knee; M51.369 Other intervertebral disc degeneration, lumbar region without mention of lumbar back pain or lower extremity pain; Z98.1 Arthrodesis status; Z68.34 Body mass index [BMI] 34.0-34.9, adult | CPT/HCPCS: 99212 ==

== ENCOUNTER 2024-10-29 07:21 | Day surgery (SDC) | payer OTHER, SELFPAY ==
--- OUTSIDE RECORDS SUMMARY | 2024-10-16 06:12 | XMS_ITS | Clinical Summary ---
Author Organization [facility] Address [address] [place] [address] Care Team Providers Care Cloth Winding Supervisor Name Role Phone Unavailable Primary Care Provider [...] this topic Insurance MEDICAID OUT OF STATE [facility] [place] , [address] [place] [address]
[2024-10-22 12:45] VITALS: BP 153/78; PULSE 77; RESP 16; O2SAT 97; BMI 34.4
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
[2024-10-29] VITALS (23 sets, daily range): BP systolic 106–144; BP diastolic 47–74; PULSE 62–80; RESP 15–18; TEMP 36.1–37; O2SAT 93–100; BMI 34.6
--- NOTE | ~2024-10-29 | FL_ITS ---
EXAMINATION: FL GUIDANCE ONLY HISTORY: LEFT L5 FORAMINOTOMY COMPARISON: None available. TECHNIQUE: Fluoroscopy time: 5 seconds. Cumulative Dose: 3.374 mGy. DAP: 1.2061 mGym2 Images: 2. FINDINGS: AP and lateral fluoroscopic spot films of the lumbar spine demonstrate a needle in the region of an L5 pedicle and a probe at the L5-S1 level. FL/FL guidance in OR IMPRESSION: Fluoroscopy during procedure. Please see procedure report for additional information. Electronically signed by: Rigo Meza MD 10/29/2024 12:34 PM EDT
--- NOTE | 2024-10-29 06:55 | MHC.SHP ---
Pre-Procedural Eval Section A - 24 Hr Update-Section A only Date of Service: 10/29/24 Section B - Complete if H&P > 30 days Chief Complaint: Radiculopathy, lumbar region,Low back pain, Allergies: Allergies Allergy/AdvReac Type Severity Reaction Status Date / Time nut - unspecified Allergy Severe Anaphylaxis Verified 10/22/24 12:59 Fruit Skin Allergy Severe Anaphylaxis Uncoded 10/17/24 10:48 Review of Systems Sugical H&P ROS: Negative: Constitution, Cardiovascular, Respiratory, Neurological, Psychiatric, Hem-Onc, Allergic/Immunologic, Gastrointestinal, Genitourinary, Musculoskeletal, Integumentary, Endocrine and Eyes/Ears/Nose/Throat Exam Surgical H&P Exam: Not Evaluated: HEENT, Not Evaluated: Heart, Not Evaluated: Lungs, Not Evaluated: Extremities, Not Evaluated: Abdomen, Not Evaluated: Skin and Not Evaluated: Neurological Exam Comment: The patient is awake, alert, no acute distress. Proposed surgical incision site is clean, dry, with no signs of recent trauma. Plan Diagnosis/Plan: Unchanged I have reviewed the history and physical and performed a pertinent physical examination on my patient. No changes have occurred unless specified. Plan remains the same, left L5 foraminotomy. Time Spent With Patient Time: Total time managing care of this patient today _13___ minutes.
[2024-10-29] MEDS: methocarbamoL 750 MG TABLET PO (08:01)
[2024-10-29] MEDS: Gabapentin 300 MG CAPSULE PO (08:01)
[2024-10-29] MEDS: Lactated Ringers 1,000 ML 100 ML IVCONT (08:11)
--- NOTE | 2024-10-29 10:02 | MHC.SHP ---
Pre-Procedural Eval Section A - 24 Hr Update-Section A only Date of Service: 10/29/24 The patient is an INPATIENT: No Section B - Complete if H&P > 30 days Chief Complaint: Radiculopathy, lumbar region,Low back pain, Details of Present Illness: left leg pain Allergies: Allergies Allergy/AdvReac Type Severity Reaction Status Date / Time nut - unspecified Allergy Severe Anaphylaxis Verified 10/29/24 07:39 Fruit Skin Allergy Severe Anaphylaxis Uncoded 10/17/24 10:48 Review of Systems Sugical H&P ROS: Negative: Constitution, Cardiovascular, Respiratory, Neurological, Psychiatric, Hem-Onc, Allergic/Immunologic, Gastrointestinal, Genitourinary, Musculoskeletal, Integumentary, Endocrine and Eyes/Ears/Nose/Throat Exam Surgical H&P Exam: Normal: HEENT, Normal: Heart, Normal: Lungs, Normal: Extremities, Normal: Abdomen, Normal: Skin and Normal: Neurological (Awake, alert) Plan Diagnosis/Plan: Unchanged I have reviewed the history and physical and performed a pertinent physical examination on my patient. No changes have occurred unless specified. Left L5 foraminotomy Time Spent With Patient Time: Total time managing care of this patient today ____ minutes.
[2024-10-29] MEDS: ceFAZolin Sodium/Dextrose,Iso 2 GM/50 ML PIGGYBACK IV (11:00)
[2024-10-29] MEDS: Acetaminophen 1,000 MG/100 ML PIGGYBACK 400 MG IV (11:15)
--- NOTE | 2024-10-29 11:50 | P.OP_ITS ---
Operative Note Operative Note Date of Service: 10/29/24 Narrative: Preop diagnosis: Left L5 radiculopathy after transKambin lumbar fusion Postop diagnosis: same Procedure: L5-S1 complete facetectomy; removal and reinsertion L5-S1 posterior instrumentation Description of procedure: This patient is suffering from a persist L5 lumbar radiculopathy after a trans Kambin fusion. The MRI suspicious for an intraforaminal mass, differential diagnosis disc material or allograft material. Her symptoms have not improved and therefore we offered her an exploration of the L5 nerve root. The procedure and complications were explained. The patient was consented. The patient was brought to the operating room and endotracheally intubated. The patient was turned in the prone position on Maksim frame. Prepping and draping was done followed by time-out. The previous paramedian incision was opened on the left side. The L5-S1 instrumentation was exposed. The locking caps and rods were taken out in preparation for the facetectomy. High-speed drill was used to do a facetectomy from lateral to medial. A 2. Kerrison was used to complete facetectomy. A nerve hook was used to palpate the S1 pedicle and L5 pedicle. A large amount of scar tissue was encountered. The nerve root was completely encased in scar tissue. I identified the annulotomy and was able to feel the intervertebral cage. I under the nerve root from scar tissue but was not able to retrieve any form of bone material or disc material. In other words, no significant compression of the L5 nerve root was found. The rods was reinserted and locked down with locking caps in the L5 and S1 pedicle screws. Physician carpenter assistant installer took over the procedure and performed hemostasis and closure of the incision in 2 layers. Steri-Strips were used to approximate the incision. An Oppsite with tegaderm was used to cover the incision. All sponge and needle counts were correct. The patient was extubated and transported in stable condition to recovery room. Surgeon: Yosef Lei MD Assist: MEGHA Pressley Anesthesia: general Estimated blood loss: minimal Surgical time: 55 minutes Specimen: none Deposition: Discharge home
--- NOTE | 2024-10-29 11:57 | PM.DS ---
DS: Providers Provider Date of Service: 10/29/24 Date of discharge: 10/29/24 Primary care physician: Viky Kaur MD DS: Summary Time Attestation Discharge Coordination Time (in mins): 12 Quality: Safe Use of Opioids Does Pt have an Active Cancer Diagnosis on the Problem List?: No Quality: Stroke Does the patient have a stroke diagnosis?: No Physical Exam Vital Signs: Vital Signs: Last Vital Signs Temp 97.8 F 10/29/24 08:04 Pulse 73 10/29/24 08:04 Resp 15 10/29/24 08:04 BP 144/74 H 10/29/24 08:04 Pulse Ox 98 10/29/24 08:04 O2 Del Method Room Air 10/29/24 08:04 BMI result Body Mass Index 34.6 DS: Data Data Completed and Pending Completed studies during hospitalization [Text1]: Procedures Excision of Lumbosacral Disc, Open Approach (08/13/24) Fusion of Lumbosacral Joint with Interbody Fusion Device, Anterior Approach, Anterior Column, Percutaneous Approach (08/13/24) Insertion of Interspinous Process Spinal Stabilization Device into Lumbosacral Joint, Open Approach (08/13/24) Monitoring of Peripheral Nervous Electrical Activity, Intraoperative, External Approach (08/13/24) Discharge Plan Discharge Patient Disposition: Home, Self-Care Referrals: Viky Kaur MD [Primary Care Provider] - 1 Week Discharge Medications: New oxycodone 5 mg tablet 5 mg PO Q6H PRN (Reason: pain) Qty: 28 0RF Rx Instructions: Partial Fill upon patient request. Continued alclometasone 0.05 % cream 1 appl topical BID PRN (Reason: itching) Qty: 15 0RF albuterol sulfate [Ventolin HFA] 90 mcg/actuation HFA aerosol inhaler 2 puff inhalation Q4-6H PRN (Reason: for dyspnea) Qty: 18 2RF cyanocobalamin (vitamin B-12) 1,000 mcg/mL solution 1,000 mcg IM Q4W 30 Days Qty: 2 2RF fluticasone propion-salmeterol [Advair Diskus] 250-50 mcg/dose blister with device 1 ea INHALATION BID albuterol sulfate [Ventolin HFA] 90 mcg/actuation HFA aerosol inhaler 2 puff inhalation Q4-6H PRN (Reason: dyspnea) fenofibrate 160 mg tablet 160 mg PO QNOON docusate sodium [Colace] 100 mg capsule 100 mg PO BID Qty: 20 0RF (DME) SHOWER CHAIR See Rx Instructions .Route .MEDSUPPLY Qty: 1 0RF Rx Instructions: As directed (DME) CANE See Rx Instructions .Route .MEDSUPPLY Qty: 1 0RF Rx Instructions: As directed (DME) WALKER WITH SEAT AND CHAIR See Rx Instructions .Route .MEDSUPPLY Qty: 1 0RF Rx Instructions: As directed (DME) blood pressure monitor [Blood Pressure Kit] Kit See Rx Instructions .ROUTE .MEDSUPPLY Qty: 1 0RF Rx Instructions: As directed zolpidem 10 mg tablet 10 mg PO BEDTIME duloxetine 30 mg capsule,delayed release(DR/EC) 30 mg PO DAILY quetiapine 25 mg tablet 25 mg PO BEDTIME famotidine [Pepcid] 20 mg tablet 20 mg PO BID Qty: 14 0RF clonazepam 0.5 mg tablet 0.25 mg PO BEDTIME Qty: 30 0RF Rx Instructions: administer 30 minutes before bedtime folic acid 1 mg tablet 1 mg PO DAILY 90 Days Qty: 90 3RF primidone 50 mg tablet 50 mg PO BEDTIME Qty: 30 2RF cholecalciferol (vitamin D3) 50 mcg (2,000 unit) capsule 50 mcg PO DAILY 90 Days Qty: 90 3RF metoprolol succinate 25 mg tablet extended release 24 hr 25 mg PO DAILY Qty: 90 1RF simvastatin 10 mg tablet 10 mg PO BEDTIME Qty: 90 3RF diclofenac sodium [Voltaren Arthritis Pain] 1 % gel 4 g topical QID Qty: 100 2RF Rx Instructions: apply to single knee, ankle, foot; for foot includes sole/toes/top of foot fluticasone propionate [Flonase Allergy Relief] 50 mcg/actuation spray,suspension 2 spray intranasal DAILY Qty: 16 11RF Rx Instructions: administer into each nostril olopatadine 0.1 % drops 1 drp ophthalmic-Left BID Qty: 5 1RF Rx Instructions: separate doses by at least 6-8 hours methocarbamol 500 mg tablet 500 mg PO TID Qty: 30 1RF gabapentin 300 mg capsule 300 mg PO TID Qty: 90 0RF Held oxycodone 5 mg tablet 5 mg PO Q6H PRN (Reason: pain) Qty: 28 0RF Hold Instructions: Resume on 11/29/24. old Rx Rx Instructions: Partial Fill upon patient request. tramadol 50 mg tablet 50 mg PO Q6H PRN (Reason: pain) Qty: 20 0RF Hold Instructions: Resume on 11/29/24. old Rx Discharge Orders: Discharge Order (Routine); Ordered 10/29/24 Ordered By: Jag López Diet: Advance to usual diet Activity on Discharge: As tolerated Activity Restrictions/Additional Instructions: After your spinal surgery we ask you to observe the following restrictions/guidelines: Activity: It is normal to feel some discomfort as you increase your activity, but that will improve with time. We ask you avoid heavy lifting or acitivities that cause pain. As a general rule, 8lbs is a safe limit for lifting right after surgery. Walk as much as you feel comfortable but not to exhaustion. You will feel extra tired the first few days after surgery. Stay well hydrated. It is OK to walk up and down stairs You may return to driving when you are off narcotics (such as vicodin, oxycodone, dilaudid, etc), and you are back to normal functional capacity. If you have any concerns please check with office before driving. Return to work is specific to each patient and each surgery, so please speak with your doctor/PA at first follow up. Please bring paperwork such as FMLA at that time if you need it filled out. Medications: Please take as little of the Oxycodone for post-surgical pain as needed, and try to utilize over the counter medication instead such as tylenol / ibuprofen for pain, as you are on multiple narcotic / controlled prescriptions. We recommend you take 1,000mg Tylenol every 8 hours for the first few weeks after surgery, if you do not have any liver issues and can tolerate this medication. Do not exceed 4,000mg daily. We will give you a short supply of narcotics after surgery (usually one weeks worth). If you need more please call the office but do not use more than prescribed. You will need to give our office 48 hours notice if you need narcotics refilled and we do not fill narcotics on weekends or evenings. If you are on a narcotic, it is a good idea to take a stool softener such as colace or senna to avoid constipation If you take blood thinner such as aspirin, Plavix, Coumadin, Effient, Eliquis etc for conditions such as Afib, DVT, Pulmonary embolus, coronary disease, stents etc please speak with your surgeon about specific details as to when you can resume these medications. You can resume NSAIDs on post op day 1 (eg: Motrin, Naproxen, etc). Follow up: Please call the office, , after surgery to arrange a 3 week follow up for wound check. Wound Care: You may remove your dressing on the first day after surgery. ?You may ?leave open to air. Please do not remove the steri strips underneath. they will fall off on their own in one week. IT IS NORMAL FOR THE WOUND TO OOZE OR BE BLOODY FOR A FEW DAYS AFTER SURGERY. ?IF THIS HAPPENS JUST PLACE NEW DRESSING OVER IT TO AVOID STAINING CLOTHES. You may shower on post op day # 1 We ask that you do not let the water soak the wound. If it does get wet, just towel dry lightly. Please do not scrub your incision or place any type of chemical/ointment on the wound. No tub baths, pools or jacuzzis for one month. If you have any leaking or redness from your wound, or fevers, please call the office. Print Language: Estonian
[2024-10-29] MEDS: fentaNYL citrate/PF 100 MCG/2 ML VIAL 50 MCG IVPUSH ×4 (12:29→14:07)
[2024-10-29] MEDS: oxyCODONE HCl Immed Release 5 MG TABLET PO (14:25)
== END 2024-10-29 16:06 | disposition home or self-care (01) ==
PROVIDERS: PCP Internal Medicine; Visit Provider Neurological Surgery
PROC: (CPT 63047; principal; 2024-10-29 09:30)
DX: M51.17 Intervertebral disc disorders with radiculopathy, lumbosacral region (principal); M54.50 Low back pain, unspecified; Z98.1 Arthrodesis status
CPT/HCPCS: 63047; 22849; J0131; J0690; J1100; J1171; J2003; J2250; J2405; J2704; J3010

== ENCOUNTER → 2024-10-29 07:21 | Outpatient (BNV) | payer OTHER, SELFPAY | PROVIDERS: PCP Internal Medicine; Visit Provider Neurological Surgery | DX: M54.16 Radiculopathy, lumbar region (principal) | CPT/HCPCS: 22840; 63047; 99499 ==

== ENCOUNTER 2024-11-03 13:19 | Outpatient (AMB) | payer OTHER, SELFPAY ==
--- OUTSIDE RECORDS SUMMARY | 2024-11-03 13:22 | XMS_ITS | Encounter Summary ---
Author Organization [facility] Address [address] [place] [id number] Care Team Providers Care Front Office Developer Name Role Phone Unavailable Primary Care Provider Unavailabl e Encounter Details Date Type Department Care Team (Latest Contact Info) Description 06/23/2020 Lab Requisition [facility] COVID [address] Through [address] [place] [address] [address] [place] [address] Paulo Kay PA-C [address] [place] [address] [phone] Encounter for laboratory testing for COVID-19 virus [...] Radha Mccoy, Ph.D., Laboratory DirectorTests performed at [facility] Microbiology Nasopharyngeal swab / Unknown 06/23/2020 2:52 PM EST 06/23/2020 2:52 PM EST Narrative OK GONZALEZ - 06/25/2020 11:54 AM EST Performed by [facility] [address] [place] [address], CLIA# [id number] and [place] License# [id number] Paulo Kay PA-C MICROBIOLOGY - GENERAL OR DERABLES Final Result OK GONZALEZ documented in this encounter Visit Diagnoses Diagnosis Encounter for laboratory testing for COVID-19 virus documented in this encounter
--- OUTSIDE RECORDS SUMMARY | 2024-11-03 13:22 | XMS_ITS | Clinical Summary ---
Author Organization [facility] Address [address] [place] [address] Care Team Providers Care Sales Consultant Name Role Phone Unavailable Primary Care [...] this topic Insurance MEDICAID OUT OF STATE [facility] , [address] [place] [id number]
--- NOTE | 2024-11-03 13:47 | HO.SPINEOV ---
Intake Visit Reasons: wound check Intake Note: Ms. Gonzalez is here today for a wound check. [facility] Director Required: No Allergies nut - unspecified Allergy (Severe, Verified 10/29/24 07:39) Anaphylaxis Fruit Skin Allergy (Severe, Uncoded 10/17/24 10:48) Anaphylaxis Assessment & Plan Assessment & Plan (1) Status post lumbar spine surgery for decompression of spinal cord: Code(s): Z98.890 - Other specified postprocedural states Category: Medical Plan Debbie comes in today for acute postoperative follow up after having left L5 foraminotomy completes by Dr. Lei last week. She contact the office concerned that she had some drainage from the incision site. She does not report any at home fever, chills, nausea, vomiting, or heightened pain. She actually says that her leg pain has been down to about a 5/10 compared to 10/10 preoperatively. She has been covering the incision site with a tegaderm and gauze. On examination it appears the superior portion of the incision is draining very slowly and producing some serosanguineous fluid. This is likely normal postoperative drainage from the incision site. The area is not painful to palpation and there is no evidence of erythema or significant edema. There is no palpable fluctuance or purulent drainage. I cleansed the area and covered it with a small amount of exofin so the patient does not have to cover the incision site with bandages to prevent drainage on to her clothes / bed sheets. I encouraged Debbie that this should self resolve over the course of the next week or so. If she does have recurrence of worsening pain, or drainage near the incision site I told her to have a low threshold to call us back and see me again in clinic. At this time it does not appear infectious at all. Jag Lei MD,PhD [facility] Coding Level of Care Code Global (56077) Diagnoses Status post lumbar spine surgery for decompression of spinal cord Z98.890
== END 2024-11-03 14:55 | disposition home or self-care (01) ==
LOC: HO.HNS 13:20
PROVIDERS: PCP Internal Medicine; Visit Provider Physician Assistant
DX: Z98.890 Other specified postprocedural states (principal)
CPT/HCPCS: 99024

== ENCOUNTER → 2024-11-03 13:19 | Outpatient (BNVA) | payer OTHER, SELFPAY | PROVIDERS: PCP Internal Medicine; Visit Provider Physician Assistant | DX: Z47.89 Encounter for other orthopedic aftercare (principal); Z98.890 Other specified postprocedural states | CPT/HCPCS: 99212 ==

== ENCOUNTER 2024-11-05 14:39 | Outpatient (AMB) | payer OTHER, SELFPAY ==
--- OUTSIDE RECORDS SUMMARY | 2024-11-05 14:48 | XMS_ITS | Encounter Summary ---
Author Organization [facility] Address [address] [place] [id number] Care Team Providers Care Software Engineering Supervisor Name Role Phone Unavailable Primary Care Provider Unavailabl e Encounter Details Date Type Department Care Team (Latest Contact Info) Description 06/23/2020 Lab Requisition [facility] COVID [address] Through [address] [place] [address] [address] [place] [address] Paulo Kay PA-C [address] [place] [address] [phone] Encounter for laboratory testing for COVID-19 virus [...] Radha Mccoy, Ph.D., Laboratory DirectorTests performed at [facility] Nasopharyngeal swab / Unknown 06/23/2020 2:52 PM EST 06/23/2020 2:52 PM EST Narrative OK GONZALEZ - 06/25/2020 11:54 AM EST Performed by [facility] [address] [place] [address], CLIA# [id number] and [place] License# [id number] Paulo Kay PA-C MICROBIOLOGY - GENERAL OR DERABLES Final Result OK GONZALEZ documented in this encounter Visit Diagnoses Diagnosis Encounter for laboratory testing for COVID-19 virus documented in this encounter
--- OUTSIDE RECORDS SUMMARY | 2024-11-05 14:48 | XMS_ITS | Clinical Summary ---
Author Organization [facility] Address [address] [place] [address] Care Team Providers Care Track Superintendent Name Role Phone Unavailable Primary Care Provider [...] this topic Insurance [place]ICA[place] [facility] [place] [address] [place] [address]
--- NOTE | 2024-11-05 15:06 | HO.SPINEOV ---
Intake Visit Reasons: wound check Intake Note: Ms. Gonzalez is here today for a wound check. Fabrication Welder Required: No Allergies nut - unspecified Allergy (Severe, Verified 10/29/24 07:39) Anaphylaxis Fruit Skin Allergy (Severe, Uncoded 10/17/24 10:48) Anaphylaxis Assessment & Plan Assessment & Plan (1) Status post lumbar spinal fusion: Comment: 08/13/2024 Code(s): Z98.1 - Arthrodesis status Category: Medical Plan Debbie is a pleasant 64-year-old female who underwent left-sided L5 foraminotomy last week with Dr. Lei, after having persistent left-sided leg pain status post L5-S1 transkambin lumbar interbody fusion. See previous office visit notes for specifics regarding this issue. She was just seen with us on Sunday and evaluated for continued leakage from her wound site. The area was cleansed and covered with some exofin as the leaking was quite distressing for her. She comes in today because the wound has persisted to leak despite this. I evaluated the incision site alongside the attending neurosurgeon Dr. Lei. She reports no at-home fever, nausea, vomiting, chills, or exacerbations of pain. No new neurological deficits. The patient ambulates well with the assistance of a cane. Her posterior incision site is well approximated, but is leaking some serosanguineous fluid at a very slow rate. There is no obvious erythema or fluctuance around the incision site. There is some edema surrounding the superior portion of the incision site, but it is nonpainful to palpation. Dr. Lei believes that this is likely a subcutaneous bleed that will self resolve over the course of the next few weeks. He would like a course of antibiotics ordered for the patient to cover for superficial skin infection as the wound site has been manipulated for examination. We will continue to follow her closely, I would like to see her again next week. Jag Lei MD,PhD [facility] Medications: New doxycycline hyclate 100 mg PO BID 10 caps 0RF infection prophylaxis 5 days Coding Level of Care Code Global (39419) Diagnoses Status post lumbar spinal fusion Z98.1
== END 2024-11-05 15:17 | disposition home or self-care (01) ==
LOC: HO.HNS 14:39
PROVIDERS: PCP Internal Medicine; Visit Provider Physician Assistant
DX: Z98.1 Arthrodesis status (principal)
CPT/HCPCS: 99024

== ENCOUNTER → 2024-11-05 14:39 | Outpatient (BNVA) | payer OTHER, SELFPAY | PROVIDERS: PCP Internal Medicine; Visit Provider Physician Assistant | DX: Z48.01 Encounter for change or removal of surgical wound dressing (principal); Z98.1 Arthrodesis status; Z98.890 Other specified postprocedural states | CPT/HCPCS: 99212 ==

== ENCOUNTER 2024-11-12 09:13 | Outpatient (AMB) | payer OTHER, SELFPAY ==
--- NOTE | 2024-11-12 09:24 | AM.OFFVISNUR ---
Intake Visit Reasons: b12 Allergies nut - unspecified Allergy (Severe, Verified 10/29/24 07:39) Anaphylaxis Fruit Skin Allergy (Severe, Uncoded 10/17/24 10:48) Anaphylaxis Office Meds cyanocobalamin (vitamin B-12) 1,000 mcg/mL injection solution Performing Provider: Viky Kaur MD [facility] Administered by: Mary Fairbanks LPN on 11/12/24 09:24 Dose Route Admin Location Dispensed Lot Number Expiration Date [facility] [employer] Maker 1,000 mcg IM right deltoid 1 mL [id number] 11/15/25 72046-063-56 [employer] Assessment & Plan Assessment & Plan Orders: Orders AMB Vitamin B12 Injection Patient Supplied Today E53.8 - Deficiency of other specified B group vitamins Medications: New cyanocobalamin (vitamin B-12) 1,000 mcg IM ONCE 1 mL 0RF E53.8 - Deficiency of other specified B group vitamins Coding
--- OUTSIDE RECORDS SUMMARY | 2024-11-12 09:49 | XMS_ITS | Encounter Summary ---
Author Organization [facility] Address [address] [place] [id number] Care Team Providers Care Soldering Machine Tender Name Role Phone Unavailable Primary Care Provider Unavailabl e Encounter Details Date Type Department Care Team (Latest Contact Info) Description 06/23/2020 Lab Requisition [facility] COVID Drive Through [address] [place] [address] [address] [place] [address] Paulo Kay PA-C [address] [place] [address] [phone] Encounter for laboratory testing for COVID-19 virus [...] Radha Mccoy, Ph.D., Laboratory DirectorTests performed at [facility] Micro[facility] Nasopharyngeal swab / Unknown 06/23/2020 2:52 PM EST 06/23/2020 2:52 PM EST Narrative OK GONZALEZ - 06/25/2020 11:54 AM EST Performed by [facility] [address] [place] [address], CLIA# [id number] and [place] License# [id number] Paulo Kay PA-C MICROBIOLOGY - GENERAL OR DERABLES Final Result OK GONZALEZ documented in this encounter Visit Diagnoses Diagnosis Encounter for laboratory testing for COVID-19 virus documented in this encounter
== END 2024-11-12 09:25 | disposition home or self-care (01) ==
LOC: HO.HMCH 09:14
PROVIDERS: PCP Internal Medicine; Visit Provider Internal Medicine
DX: E53.8 Deficiency of other specified B group vitamins (principal)

== ENCOUNTER → 2024-11-12 09:13 | Outpatient (BNVA) | payer OTHER, SELFPAY | PROVIDERS: PCP Internal Medicine; Visit Provider Internal Medicine | DX: Z48.89 Encounter for other specified surgical aftercare (principal); Z98.1 Arthrodesis status; E53.8 Deficiency of other specified B group vitamins | CPT/HCPCS: 96372; 99212; J3420 ==

== ENCOUNTER 2024-11-12 14:48 | Outpatient (AMB) | payer OTHER, SELFPAY ==
--- NOTE | 2024-11-12 14:34 | A.SPINEOV_ITS ---
Intake Visit Reasons: wound check Intake Note: Ms. Gonzalez is here today for a wound check. Correctional Medicine Physician Required: No Allergies nut - unspecified Allergy (Severe, Verified 10/29/24 07:39) Anaphylaxis Fruit Skin Allergy (Severe, Uncoded 10/17/24 10:48) Anaphylaxis Assessment & Plan Assessment & Plan (1) Status post lumbar spine surgery for decompression of spinal cord: Code(s): Z98.890 - Other specified postprocedural states Category: Medical Plan Debbie is a pleasant 64-year-old female who underwent left-sided L5 foraminotomy on 10/30/[address] Lei, after having persistent left-sided leg pain status post L5-S1 transkambin lumbar interbody fusion. See previous office visit notes for specifics regarding this issue. She comes in today for subsequent wound check, we have been following her closely since surgery, as she had some issues with drainage from her incision site. No new neurological deficits. The patient ambulates well with the assistance of a cane. Her posterior incision site is well approximated and is no longer activly leaking serosanguineous fluid. I would like the patient to follow up with us again in 6 weeks for her 2nd postoperative visit. Jag Lei MD,PhD [facility] Medications: Refilled oxycodone Partial Fill upon patient request. 5 mg PO Q6H PRN 28 tabs 0RF pain oxycodone Partial Fill upon patient request. 5 mg PO Q6H PRN 28 tabs 0RF pain Discontinued oxycodone Partial Fill upon patient request. Discontinued Reason: Doctor's Order 5 mg PO Q6H PRN 28 tabs 0RF pain Coding Level of Care Code Global (26439) Diagnoses Status post lumbar spine surgery for decompression of spinal cord Z98.890
== END 2024-11-12 15:11 | disposition home or self-care (01) ==
LOC: HO.HNS 14:48
PROVIDERS: PCP Internal Medicine; Visit Provider Physician Assistant
DX: Z98.890 Other specified postprocedural states (principal)
CPT/HCPCS: 99024

== ENCOUNTER 2024-11-26 13:31 | Outpatient (AMB) | payer OTHER, SELFPAY ==
--- NOTE | 2024-11-26 13:44 | A.SPINEOV_ITS ---
Intake Visit Reasons: post op Intake Note: Ms. Gonzalez is here today for her post op. Operative Supervisor Required: No Allergies nut - unspecified Allergy (Severe, Verified 10/29/24 07:39) Anaphylaxis Fruit Skin Allergy (Severe, Uncoded 10/17/24 10:48) Anaphylaxis Assessment & Plan Assessment & Plan (1) Status post lumbar spine surgery for decompression of spinal cord: Code(s): Z98.890 - Other specified postprocedural states Category: Surgical Plan Debbie is a pleasant 64-year-old female who underwent left-sided L5 foraminotomy on 10/30/[address] Lei, after having persistent left-sided leg pain status post L5-S1 transkambin lumbar interbody fusion. See previous office visit notes for specifics regarding this issue. She reports that she has continued to suffer from very severe left-sided shooting radicular pain. She tracks the pain down her left lower extremity in a classic L5 distribution. We extensively discussed the left-sided L5 foraminotomy, during which Dr. Lei and I were able to identify and isolate the L5 nerve. There was no obvious sign of compression by the time her foraminotomy was complete. Given this, there was very extensive scar tissue essentially encapsulating the nerve. No new neurological deficits. The patient ambulates well with the assistance of a cane. Her posterior incision site is well approximated and is no longer activly leaking serosanguineous fluid. After discussing with the attending neurosurgeon Dr. Lei I would like to send the patient for a left-sided L5 nerve block to see if she can obtain some kind of pain relief as she is in obvious agony today. We can follow up with her again in clinic after this. Jag Lei MD,PhD [facility] Orders: Referrals Pain Management Referral Z98.890 - Other specified postprocedural states Coding Level of Care Code Global (01453) Diagnoses Status post lumbar spine surgery for decompression of spinal cord Z98.890
--- OUTSIDE RECORDS SUMMARY | 2024-11-26 15:17 | XMS_ITS | Encounter Summary ---
Author Organization [facility] Address [address] [place] [address] Care Team Providers Care Vp Scientific Affairs Name Role Phone Unavailable Primary Care Provider Unavailabl e Encounter Details Date Type Department Care Team (Latest Contact Info) Description 06/23/2020 Lab Requisition [facility] COVID Drive Through [address] [place] [address] [address] [place] [address] Paulo Kay PA-C [address] [place] [address] [phone] Encounter for laboratory testing for COVID-19 virus [...] Radha Mccoy, Ph.D., Laboratory DirectorTests performed at [facility] Microbiology Nasopharyngeal swab / Unknown 06/23/2020 2:52 PM EST 06/23/2020 2:52 PM EST Narrative OK GONZALEZ - 06/25/2020 11:54 AM EST Performed by [facility] [address] [place] [address], CLIA# [id number] and [place] License# [id number] Paulo Kay PA-C MICROBIOLOGY - GENERAL OR DERABLES Final Result OK GONZALEZ documented in this encounter Visit Diagnoses Diagnosis Encounter for laboratory testing for COVID-19 virus documented in this encounter
== END 2024-11-26 14:18 | disposition home or self-care (01) ==
LOC: HO.HNS 13:32
PROVIDERS: PCP Internal Medicine; Visit Provider Physician Assistant
DX: Z98.890 Other specified postprocedural states (principal)
CPT/HCPCS: 99024

== ENCOUNTER → 2024-11-26 13:31 | Outpatient (BNVA) | payer OTHER, SELFPAY | PROVIDERS: PCP Internal Medicine; Visit Provider Physician Assistant | DX: Z98.890 Other specified postprocedural states (principal) | CPT/HCPCS: 99212 ==

== ENCOUNTER 2024-11-27 09:31 | Outpatient (AMB) | payer OTHER, SELFPAY ==
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
[2024-11-27 09:58] VITALS: BP 142/70; PULSE 78; RESP 18; TEMP 36.3; O2SAT 99; BMI 34.9
--- OUTSIDE RECORDS SUMMARY | 2024-11-27 10:27 | XMS_ITS | Encounter Summary ---
Author Organization Formerly [facility] Address [address] [place] [id number] Care Team Providers Care Blast Setter Name Role Phone Unavailable Primary Care Provider Unavailabl e Encounter Details Date Type Department Care Team (Latest Contact Info) Description 06/23/2020 Lab Requisition [facility] COVID [address] Through [address] [place] [address] [address] [place] [address] Paulo Kay PA-C [address] [place] [address] [phone] Encounter for laboratory testing for COVID-19 virus [...] Radha Mccoy, Ph.D., Laboratory DirectorTests performed at [facility] Nasopharyngeal swab / Unknown 06/23/2020 2:52 PM EST 06/23/2020 2:52 PM EST Narrative OK GONZALEZ - 06/25/2020 11:54 AM EST Performed by [facility] [address] [place] [address], CLIA# [id number] and [place] License# [id number] Paulo Kay PA-C MICROBIOLOGY - GENERAL OR DERABLES Final Result OK GONZALEZ documented in this encounter Visit Diagnoses Diagnosis Encounter for laboratory testing for COVID-19 virus documented in this encounter
== END 2024-11-27 10:39 | disposition home or self-care (01) ==
LOC: HO.HMCH 09:32
PROVIDERS: PCP Internal Medicine; Visit Provider Internal Medicine
DX: Z00.00 Encounter for general adult medical examination without abnormal findings (principal); F33.1 Major depressive disorder, recurrent, moderate; E66.9 Obesity, unspecified; Z68.34 Body mass index [BMI] 34.0-34.9, adult; J45.20 Mild intermittent asthma, uncomplicated; E78.00 Pure hypercholesterolemia, unspecified; R73.02 Impaired glucose tolerance (oral); K21.9 Gastro-esophageal reflux disease without esophagitis; Z98.1 Arthrodesis status

== ENCOUNTER → 2024-11-27 09:31 | Outpatient (BNVA) | payer OTHER, SELFPAY | PROVIDERS: PCP Internal Medicine; Visit Provider Internal Medicine | DX: Z00.00 Encounter for general adult medical examination without abnormal findings (principal); E66.9 Obesity, unspecified; J45.20 Mild intermittent asthma, uncomplicated; E78.00 Pure hypercholesterolemia, unspecified; R73.02 Impaired glucose tolerance (oral); K21.9 Gastro-esophageal reflux disease without esophagitis; F33.1 Major depressive disorder, recurrent, moderate; E55.9 Vitamin D deficiency, unspecified; R03.0 Elevated blood-pressure reading, without diagnosis of hypertension; Z98.890 Other specified postprocedural states; Z98.1 Arthrodesis status; Z68.34 Body mass index [BMI] 34.0-34.9, adult | CPT/HCPCS: 99396 ==

== ENCOUNTER 2024-12-11 10:28 | Outpatient (AMB) | payer OTHER, SELFPAY ==
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
[2024-12-11 10:35] VITALS: BP 207/95; PULSE 90; O2SAT 98; BMI 33.7
[2024-12-11 10:36] VITALS: BP 188/84; PULSE 73
--- OUTSIDE RECORDS SUMMARY | 2024-12-11 12:15 | XMS_ITS | Encounter Summary ---
Author Organization [facility] Address [address] [place] [address] Care Team Providers Care Vehicle Delivery Worker Name Role Phone Unavailable Primary Care Provider Unavailabl e Encounter Details Date Type Department Care Team (Latest Contact Info) Description 06/23/2020 Lab Requisition [facility] COVID [address] Through [address] [place] [address] [address] [place] [address] Paulo Kay PA-C [address] [place] [address] [phone] Encounter for laboratory testing for COVID-19 virus [...] correlation is highly recommended.Final report signed by Rahda Mccoy, Ph.D., Laboratory DirectorTests performed at [facility] Nasopharyngeal swab / Unknown 06/23/2020 2:52 PM EST 06/23/2020 2:52 PM EST Narrative OK GONZALEZ - 06/25/2020 11:54 AM EST Performed by [facility] [address] [place] [address], CLIA# [id number] and [place] License# [id number] Paulo Kay PA-C MICROBIOLOGY - GENERAL OR DERABLES Final Result OK GONZALEZ documented in this encounter Visit Diagnoses Diagnosis Encounter for laboratory testing for COVID-19 virus documented in this encounter
== END 2024-12-11 11:11 | disposition home or self-care (01) ==
LOC: HO.PMC 10:29
PROVIDERS: PCP Internal Medicine; Referring Provider Physician Assistant; Visit Provider Nurse Practitioner Family
DX: M54.16 Radiculopathy, lumbar region (principal); M47.816 Spondylosis without myelopathy or radiculopathy, lumbar region; Z98.1 Arthrodesis status; Z98.890 Other specified postprocedural states; G89.4 Chronic pain syndrome; M96.1 Postlaminectomy syndrome, not elsewhere classified
CPT/HCPCS: 99214; G2211

== ENCOUNTER → 2024-12-11 10:28 | Outpatient (BNVA) | payer OTHER, SELFPAY | PROVIDERS: PCP Internal Medicine; Referring Provider Physician Assistant; Visit Provider Nurse Practitioner Family | DX: M54.16 Radiculopathy, lumbar region (principal); M47.816 Spondylosis without myelopathy or radiculopathy, lumbar region; Z98.1 Arthrodesis status; Z98.890 Other specified postprocedural states; G89.4 Chronic pain syndrome; M96.1 Postlaminectomy syndrome, not elsewhere classified | CPT/HCPCS: 99212 ==

== ENCOUNTER 2024-12-12 09:29 | Outpatient (AMB) | payer OTHER, SELFPAY ==
--- NOTE | 2024-12-12 09:44 | AM.OFFVISNUR ---
Intake Visit Reasons: B12 Shot Allergies nut - unspecified Allergy (Severe, Verified 12/11/24 10:36) Anaphylaxis Fruit Skin Allergy (Severe, Uncoded 10/17/24 10:48) Anaphylaxis Office Meds cyanocobalamin (vitamin B-12) 1,000 mcg/mL injection solution Performing Provider: Viky Kaur MD [facility] Administered by: Mary Fairbanks LPN on 12/12/24 09:44 Dose Route Admin Location Dispensed Lot Number Expiration Date [facility] Lens Sil[employer] 1,000 mcg IM right deltoid 1 mL [id number] 11/15/25 34240-730-06 [employer] Total Dispensed Waste 1 mL 0 % Assessment & Plan Assessment & Plan Orders: Orders AMB Vitamin B12 Injection Patient Supplied Today E53.8 - Deficiency of other specified B group vitamins Coding
--- OUTSIDE RECORDS SUMMARY | 2024-12-12 09:54 | XMS_ITS | Encounter Summary ---
Author Organization [facility] Address [address] [place] [address] Care Team Providers Care Chemical Librarian Name Role Phone Unavailable Primary Care Provider Unavailabl e Encounter Details Date Type Department Care Team (Latest Contact Info) Description 06/23/2020 Lab Requisition [facility] COVID Drive Through [address] [place] [address] [address] [place] [address] Paulo Kay PA-C [address] [place] [address] [phone] Encounter for laboratory testing for COVID-19 virus [...] Radha Mccoy, Ph.D., Laboratory DirectorTests performed at [email or web address] Nasopharyngeal swab / Unknown 06/23/2020 2:52 PM EST 06/23/2020 2:52 PM EST Narrative OK GONZALEZ - 06/25/2020 11:54 AM EST Performed by [email or web address] [address] [place] [address], CLIA# [id number] and [place] License# [id number] Paulo Kay PA-C MICROBIOLOGY - GENERAL OR DERABLES Final Result OK GONZALEZ documented in this encounter Visit Diagnoses Diagnosis Encounter for laboratory testing for COVID-19 virus documented in this encounter
== END 2024-12-12 09:46 | disposition home or self-care (01) ==
LOC: HO.HMCH 09:30
PROVIDERS: PCP Internal Medicine; Visit Provider Internal Medicine
DX: E53.8 Deficiency of other specified B group vitamins (principal)

== ENCOUNTER → 2024-12-12 09:29 | Outpatient (BNVA) | payer OTHER, SELFPAY | PROVIDERS: PCP Internal Medicine; Visit Provider Internal Medicine | DX: E53.8 Deficiency of other specified B group vitamins (principal) | CPT/HCPCS: 96372; J3420 ==

== ENCOUNTER 2024-12-15 10:59 | Outpatient (AMB) | payer OTHER, SELFPAY ==
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
[2024-12-15 11:12] VITALS: BP 142/90; BMI 33.7
--- OUTSIDE RECORDS SUMMARY | 2024-12-15 11:51 | XMS_ITS | Encounter Summary ---
Author Organization [facility] Address [address] [place] [address] Care Team Providers Care Terrazzo Mechanic Helper Name Role Phone Unavailable Primary Care Provider Unavailabl e Encounter Details Date Type Department Care Team (Latest Contact Info) Description 06/23/2020 Lab Requisition [facility] COVID Drive Through [address] [place] [address] [address] [place] [address] Paulo Kay PA-C [address] [place] [address] [phone] Encounter for laboratory testing for COVID-19 virus [...] Radha Mccoy, Ph.D., Laboratory DirectorTests performed at [facility] Nasopharyngeal swab / Unknown 06/23/2020 2:52 PM EST 06/23/2020 2:52 PM EST Narrative OK GONZALEZ - 06/25/2020 11:54 AM EST Performed by [facility], [address] [place] [address], CLIA# [id number] and [place] License# [id number] Paulo Kay PA-C MICROBIOLOGY - GENERAL OR DERABLES Final Result OK GNOZALEZ documented in this encounter Visit Diagnoses Diagnosis Encounter for laboratory testing for COVID-19 virus documented in this encounter
== END 2024-12-15 11:37 | disposition home or self-care (01) ==
LOC: HO.HWS 10:59
PROVIDERS: PCP Internal Medicine; Visit Provider Obstetrics & Gynecology
DX: Z01.419 Encounter for gynecological examination (general) (routine) without abnormal findings (principal)
CPT/HCPCS: 99396; 99459

== ENCOUNTER → 2024-12-15 10:59 | Outpatient (BNVA) | payer OTHER, SELFPAY | PROVIDERS: PCP Internal Medicine; Visit Provider Obstetrics & Gynecology | DX: Z01.419 Encounter for gynecological examination (general) (routine) without abnormal findings (principal) | CPT/HCPCS: 99396 ==

== ENCOUNTER 2025-01-02 10:29 | Day surgery (SDC) | payer OTHER, SELFPAY ==
--- OUTSIDE RECORDS SUMMARY | 2025-01-01 12:56 | XMS_ITS | Encounter Summary ---
Author Organization [facility] Address [address] [place] [address] Care Team Providers Care Liberal Arts And Humanities Chair Name Role Phone Unavailable Primary Care Provider Unavailabl e Encounter Details Date Type Department Care Team (Latest Contact Info) Description 06/23/2020 Lab Requisition [facility] COVID Drive Through [address] [place] [address] [address] [place] [address] Paulo Kay PA-C [address] [place] [address] [phone] Encounter for laboratory testing for COVID-19 virus [...] Radha Mccoy, Ph.D., Laboratory DirectorTests performed at [facility] Nasopharyngeal swab / Unknown 06/23/2020 2:52 PM EST 06/23/2020 2:52 PM EST Narrative OK GONZALEZ - 06/25/2020 11:54 AM EST Performed by [facility] [address] [place] [address], CLIA# [id number] and [place] License# [id number] Paulo Kay PA-C MICROBIOLOGY - GENERAL OR DERABLES Final Result OK GONZALEZ documented in this encounter Visit Diagnoses Diagnosis Encounter for laboratory testing for COVID-19 virus documented in this encounter
--- NOTE | ~2025-01-02 | FL_ITS ---
EXAMINATION: FL GUIDANCE ONLY HISTORY: Steroid injection COMPARISON: None available. TECHNIQUE: Fluoroscopy time: 13.4 seconds. Cumulative Dose: 6.5802 mGy. DAP: 2.8623 mGym2 Images: 1. FINDINGS: A single fluoroscopic spot film of lumbar spine demonstrates a needle superimposed over the L5 vertebral body. The patient is status post L5-S1 fusion. FL/FL guidance in OR IMPRESSION: Fluoroscopy during procedure. Please see procedure report for additional information. Electronically signed by: Rigo Meza MD 01/02/2025 11:39 AM EDT
[2025-01-02 10:37] VITALS: BP 160/70; PULSE 72; RESP 16; TEMP 36.3; O2SAT 98; BMI 33.5
--- NOTE | 2025-01-02 10:48 | MHC.SHP ---
Pre-Procedural Eval Section A - 24 Hr Update-Section A only Date of Service: 01/02/25 The patient is an INPATIENT: No Changes since office visit: Yes Patient answered all questions The patient has been examined within 24 hours of the surgical procedure. The History & Physical has been completed within 30 days and I have reviewed it.: No Section B - Complete if H&P > 30 days Chief Complaint: Radiculopathy, lumbar region,postlaminectomy Details of Present Illness: As above Relevant Family History (Specify if Yes): No Relevant Social History: None Present Medications: see Short Stay Collaborative assessment Medical History: No relevant PMH History of Previous Operations: No relevant previous surgery Allergies: Allergies Allergy/AdvReac Type Severity Reaction Status Date / Time nut - unspecified Allergy Severe Anaphylaxis Verified 01/02/25 10:44 Fruit Skin Allergy Severe Anaphylaxis Uncoded 01/02/25 10:44 Review of Systems Sugical H&P ROS: Negative: Constitution, Respiratory, Psychiatric, Hem-Onc, Allergic/Immunologic, Gastrointestinal, Genitourinary, Integumentary, Endocrine and Eyes/Ears/Nose/Throat and Yes, Specify: Cardiovascular (HTN), Neurological (Coarse tremors) and Musculoskeletal (Radiculopathy lumbar, postlaminectomy syndrome.) Exam Surgical H&P Exam: Normal: HEENT, Normal: Heart, Normal: Lungs, Normal: Extremities, Normal: Abdomen, Normal: Skin and Normal: Neurological Plan Diagnosis/Plan: Unchanged I have reviewed the history and physical and performed a pertinent physical examination on my patient. No changes have occurred unless specified. Time Spent With Patient Time: Total time managing care of this patient today ____ minutes.
--- NOTE | 2025-01-02 11:28 | PM.OP ---
Brief Operative Note Date of Service: 01/02/25 Pre-op diagnosis: Postlaminectomy syndrome, radiculopathy lumbar Post-op diagnosis: same Procedure: Attempt at L5-S1 transforaminal epidural steroid injection Surgeon: Mio Mallory MD Anesthesia: local Was an Electronics Inspector used for this Procedure?: No Estimated blood loss (mL): 0 Condition: stable Disposition: PACU
--- NOTE | 2025-01-02 11:29 | W.PM.OPN ---
Operative Note Operative Note Date of Service: 01/02/25 Narrative: Attempt as transforaminal epidural steroid injection L5-S1 on the left. Informed consent was thoroughly explained to the patient risks and benefits were explained. The patient was taken to the operating room and positioned prone on operating table. Time-out was performed delineating name and date of of the patient side and site of the procedure. The lower back of the patient was prepped with ChloraPrep and draped with sterile self adhesive utility towels. After that C-arm was brought over the operating field and sq picture of L5 vertebra was demonstrated on the screen. Tilting receive her of the machine ipsilateral to the left the sq picture of pedicular screw was obtained on the screen. 3 mm below the pedicular screw silhouette projection to the skin injection of the local anesthetic lidocaine 1 % was performed numbing the skin. After that 22 gauge 5 in needle was inserted through the skin wheal and attempted to advanced toward the foramina. However the advancement of the needle was made only 5-6 mm patient has started to complain on intractable pain and severe anxiety. She requested to stop the procedure. The needle was removed and procedure was stopped. She was transferred stable to PACU.
[2025-01-02 11:40] VITALS: BP 175/74; PULSE 73; RESP 18; TEMP 36.8; O2SAT 97
== END 2025-01-02 11:40 | disposition home or self-care (01) ==
PROVIDERS: PCP Internal Medicine; Visit Provider Anesthesiology
PROC: (CPT 64483; principal; 2025-01-02 12:30)
DX: M54.16 Radiculopathy, lumbar region (principal); Z53.8 Procedure and treatment not carried out for other reasons; M96.1 Postlaminectomy syndrome, not elsewhere classified; G89.4 Chronic pain syndrome; M54.50 Low back pain, unspecified; M79.605 Pain in left leg; R20.0 Anesthesia of skin; R20.2 Paresthesia of skin; M51.379 Other intervertebral disc degeneration, lumbosacral region without mention of lumbar back pain or lower extremity pain; M48.07 Spinal stenosis, lumbosacral region; G62.9 Polyneuropathy, unspecified; Z98.1 Arthrodesis status; M79.7 Fibromyalgia; M19.90 Unspecified osteoarthritis, unspecified site; Z87.828 Personal history of other (healed) physical injury and trauma; G25.0 Essential tremor; F20.9 Schizophrenia, unspecified; I10 Essential (primary) hypertension; D64.9 Anemia, unspecified; R73.02 Impaired glucose tolerance (oral); F32.A Depression, unspecified; F41.9 Anxiety disorder, unspecified; Z79.899 Other long term (current) drug therapy; Z98.890 Other specified postprocedural states; Z79.891 Long term (current) use of opiate analgesic
CPT/HCPCS: 64483; J2003; J3301; Q9967

== ENCOUNTER → 2025-01-02 10:29 | Outpatient (BNV) | payer OTHER, SELFPAY | PROVIDERS: PCP Internal Medicine; Visit Provider Anesthesiology | DX: M96.1 Postlaminectomy syndrome, not elsewhere classified (principal) | CPT/HCPCS: 64483 ==

== ENCOUNTER 2025-01-12 08:58 | Outpatient (AMB) | payer OTHER, SELFPAY ==
--- NOTE | 2025-01-12 09:18 | AM.OFFVISNUR ---
Intake Visit Reasons: B12 Shot Allergies nut - unspecified Allergy (Severe, Verified 01/02/25 10:44) Anaphylaxis Fruit Skin Allergy (Severe, Uncoded 01/02/25 10:44) Anaphylaxis Office Meds cyanocobalamin (vitamin B-12) 1,000 mcg/mL injection solution Performing Provider: Viky Kaur MD [facility] [place] [facility] Administered by: Mary Fairbanks LPN on 01/12/25 09:18 Dose Route Admin Location Dispensed Lot Number Expiration Date [facility] Engine Cowling Installer 1,000 mcg IM right deltoid 1 mL [id number] 05/17/26 43739-380-14 [employer] Total Dispensed Waste 1 mL 0 % Assessment & Plan Assessment & Plan Orders: Orders AMB Vitamin B12 Injection Patient Supplied Today E53.8 - Deficiency of other specified B group vitamins Coding
--- OUTSIDE RECORDS SUMMARY | 2025-01-12 09:38 | XMS_ITS | Encounter Summary ---
Author Organization [facility] Address [address] [place] [address] Care Team Providers Care Plate Printer Name Role Phone Unavailable Primary Care Provider Unavailabl e Encounter Details Date Type Department Care Team (Latest Contact Info) Description 06/23/2020 Lab Requisition [facility] COVID Drive Through [address] [place] [address] [address] [place] [address] Paulo Kay PA-C [address] [place] [address] [phone] Encounter for laboratory testing for COVID-19 virus [...] Radha Mccoy, Ph.D., Laboratory DirectorTests performed at [facility] Nasopharyngeal swab / Unknown 06/23/2020 2:52 PM EST 06/23/2020 2:52 PM EST Narrative OK GONZALEZ - 06/25/2020 11:54 AM EST Performed by [facility] [address] [place] [address], CLIA# [id number] and [place] License# [id number] Paulo Kay PA-C MICROBIOLOGY - GENERAL OR DERABLES Final Result OK GONZALEZ documented in this encounter Visit Diagnoses Diagnosis Encounter for laboratory testing for COVID-19 virus documented in this encounter
== END 2025-01-12 09:20 | disposition home or self-care (01) ==
LOC: HO.HMCH 09:02
PROVIDERS: PCP Internal Medicine; Visit Provider Internal Medicine
DX: E53.8 Deficiency of other specified B group vitamins (principal)

== ENCOUNTER → 2025-01-12 08:58 | Outpatient (BNVA) | payer OTHER, SELFPAY | PROVIDERS: PCP Internal Medicine; Visit Provider Internal Medicine | DX: E53.8 Deficiency of other specified B group vitamins (principal) | CPT/HCPCS: 96372; J3420 ==

== ENCOUNTER 2025-02-04 14:11 | Outpatient (AMB) | payer OTHER, SELFPAY ==
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
[2025-02-04 14:21] VITALS: BP 190/93; PULSE 79; RESP 18; O2SAT 97; BMI 32.8
--- OUTSIDE RECORDS SUMMARY | 2025-02-04 15:09 | XMS_ITS | Encounter Summary ---
Author Organization [facility] Address [address] [place] [address] Care Team Providers Care Merchandise Clerk Name Role Phone Unavailable Primary Care Provider Unavailabl e Encounter Details Date Type Department Care Team (Latest Contact Info) Description 06/23/2020 Lab Requisition [facility] COVID Drive Through [address] [place] [address] [address] [place] [address] Paulo Kay PA-C [address] [place] [address] [phone] Encounter for laboratory testing for COVID-19 virus [...] Radha Mccoy, Ph.D., Laboratory DirectorTests performed at [facility]biology Nasopharyngeal swab / Unknown 06/23/2020 2:52 PM EST 06/23/2020 2:52 PM EST Narrative OK GONZALEZ - 06/25/2020 11:54 AM EST Performed by [facility] [address] [place] [address], CLIA# [id number] and [place] License# [id number] Paulo Kay PA-C MICROBIOLOGY - GENERAL OR DERABLES Final Result OK GONZALEZ documented in this encounter Visit Diagnoses Diagnosis Encounter for laboratory testing for COVID-19 virus documented in this encounter
== END 2025-02-04 15:03 | disposition home or self-care (01) ==
LOC: HO.PMC 14:12
PROVIDERS: PCP Internal Medicine; Visit Provider Anesthesiology
DX: M54.16 Radiculopathy, lumbar region (principal); M47.816 Spondylosis without myelopathy or radiculopathy, lumbar region; Z98.1 Arthrodesis status; Z98.890 Other specified postprocedural states; G89.4 Chronic pain syndrome; M96.1 Postlaminectomy syndrome, not elsewhere classified
CPT/HCPCS: 99214

== ENCOUNTER → 2025-02-04 14:11 | Outpatient (BNVA) | payer OTHER, SELFPAY | PROVIDERS: PCP Internal Medicine; Visit Provider Anesthesiology | DX: M96.1 Postlaminectomy syndrome, not elsewhere classified (principal); M46.1 Sacroiliitis, not elsewhere classified; M54.16 Radiculopathy, lumbar region; M47.816 Spondylosis without myelopathy or radiculopathy, lumbar region; G89.4 Chronic pain syndrome; Z98.1 Arthrodesis status; Z98.890 Other specified postprocedural states | CPT/HCPCS: 99212 ==

== ENCOUNTER 2025-02-12 09:05 | Outpatient (AMB) | payer OTHER, SELFPAY ==
--- NOTE | 2025-02-12 09:24 | AM.OFFVISNUR ---
Intake Visit Reasons: B12 Shot Allergies nut - unspecified Allergy (Severe, Verified 02/04/25 14:20) Anaphylaxis Fruit Skin Allergy (Severe, Uncoded 01/02/25 10:44) Anaphylaxis Office Meds cyanocobalamin (vitamin B-12) 1,000 mcg/mL injection solution Performing Provider: Viky Kaur MD [place]forming [facility] [place] [facility] [place] [facility] Administered by: Mary Fairbanks LPN on 02/12/25 09:24 Dose Route Admin Location Dispensed Lot Number Expiration Date [facility] Food Service Steward 1,000 mcg IM right deltoid 1 mL [id number] 05/17/26 21319-314-53 Diet TV Total Dispensed Waste 1 mL 0 % Assessment & Plan Assessment & Plan Orders: Orders AMB Vitamin B12 Injection Patient Supplied Today E53.8 - Deficiency of other specified B group vitamins Coding
--- OUTSIDE RECORDS SUMMARY | 2025-02-12 10:02 | XMS_ITS | Encounter Summary ---
Author Organization [facility] Address [address] [place] [address] Care Team Providers Care Support Technician Name Role Phone Unavailable Primary Care Provider Unavailabl e Encounter Details Date Type Department Care Team (Latest Contact Info) Description 06/23/2020 Lab Requisition [facility] COVID Drive Through [address] [place] [address] [address] [place] [address] Paulo Kay PA-C [address] [place] [address] [phone] Encounter for laboratory testing for COVID-19 virus [...] Radha Mccoy, Ph.D., Laboratory DirectorTests performed at [facility] Nasopharyngeal swab / Unknown 06/23/2020 2:52 PM EST 06/23/2020 2:52 PM EST Narrative OK GONZALEZ - 06/25/2020 11:54 AM EST Performed by [facility] [address] [place] [address], CLIA# [id number] and [place] License# [id number] Paulo Kay PA-C MICROBIOLOGY - GENERAL OR DERABLES Final Result OK GONZALEZ documented in this encounter Visit Diagnoses Diagnosis Encounter for laboratory testing for COVID-19 virus documented in this encounter
--- OUTSIDE RECORDS SUMMARY | 2025-02-12 10:02 | XMS_ITS | Clinical Summary ---
Author Organization [facility] Address [address] [place] [address] Care Team Providers Care Director Of Professional Services Name Role Phone Unavailable Primary Care Provider [...] this topic Insurance MEDICAID OUT OF STATE [facility] [place] , [address] [place] [address]
== END 2025-02-12 09:22 | disposition home or self-care (01) ==
LOC: HO.HMCH 09:06
PROVIDERS: PCP Internal Medicine; Visit Provider Internal Medicine
DX: E53.8 Deficiency of other specified B group vitamins (principal)

== ENCOUNTER → 2025-02-12 09:05 | Outpatient (BNVA) | payer OTHER, SELFPAY | PROVIDERS: PCP Internal Medicine; Visit Provider Internal Medicine | DX: E53.8 Deficiency of other specified B group vitamins (principal) | CPT/HCPCS: 96372; J3420 ==

== ENCOUNTER 2025-02-13 09:26 | Outpatient (AMB) | payer OTHER, SELFPAY ==
[2025-02-13 09:40] VITALS: BP 162/98; PULSE 76; TEMP 36.3; O2SAT 96; BMI 33.6
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
--- OUTSIDE RECORDS SUMMARY | 2025-02-13 10:15 | XMS_ITS | Encounter Summary ---
Author Organization [facility] Address [address] [place] [id number] Care Team Providers Care Watch Commander Name Role Phone Unavailable Primary Care Provider Unavailabl e Encounter Details Date Type Department Care Team (Latest Contact Info) Description 06/23/2020 Lab Requisition [facility] [address] Through [address] [place] [address] [address] [place] [address] Paulo Kay PA-C [address] [place] [phone] Encounter for laboratory testing for COVID-19 virus [...] Radha Mccoy, Ph.D., Laboratory DirectorTests performed at [facility] Nasopharyngeal swab / Unknown 06/23/2020 2:52 PM EST 06/23/2020 2:52 PM EST Narrative [place] GONZALEZ - 06/25/2020 11:54 AM EST Performed by [facility] [address] [place] [address], CLIA# [id number] and [place] License# [id number] Paulo Kay PA-C MICROBIOLOGY - GENERAL OR DERABLES Final Result [place] GONZALEZ documented in this encounter Visit Diagnoses Diagnosis Encounter for laboratory testing for COVID-19 virus documented in this encounter
--- OUTSIDE RECORDS SUMMARY | 2025-02-13 10:15 | XMS_ITS | Clinical Summary ---
Author Organization [facility] Address [address] [place] [address] Care Team Providers Care Business Analysis Analyst Name Role Phone Unavailable Primary Care [...] this topic Insurance MEDICAID OUT OF STATE [facility] , [address] [place] [address]
== END 2025-02-13 11:01 | disposition home or self-care (01) ==
LOC: HO.HMCH 09:27
PROVIDERS: PCP Internal Medicine; Visit Provider Internal Medicine
DX: I10 Essential (primary) hypertension (principal); F33.1 Major depressive disorder, recurrent, moderate; E66.9 Obesity, unspecified; Z68.33 Body mass index [BMI] 33.0-33.9, adult; E78.00 Pure hypercholesterolemia, unspecified; R73.02 Impaired glucose tolerance (oral); M96.1 Postlaminectomy syndrome, not elsewhere classified

== ENCOUNTER → 2025-02-13 09:26 | Outpatient (BNVA) | payer OTHER, SELFPAY | PROVIDERS: PCP Internal Medicine; Visit Provider Internal Medicine | DX: I10 Essential (primary) hypertension (principal); E78.00 Pure hypercholesterolemia, unspecified; R73.02 Impaired glucose tolerance (oral); E66.9 Obesity, unspecified; F33.1 Major depressive disorder, recurrent, moderate; M96.1 Postlaminectomy syndrome, not elsewhere classified; M54.50 Low back pain, unspecified; J45.909 Unspecified asthma, uncomplicated; K21.9 Gastro-esophageal reflux disease without esophagitis; Z68.33 Body mass index [BMI] 33.0-33.9, adult | CPT/HCPCS: 99212 ==

== ENCOUNTER 2025-03-03 09:25 | Outpatient (AMB) | payer OTHER, SELFPAY ==
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
[2025-03-03 09:35] VITALS: BP 168/71; PULSE 72; O2SAT 98; BMI 33.3
--- OUTSIDE RECORDS SUMMARY | 2025-03-03 11:55 | XMS_ITS | Clinical Summary ---
Author Organization [facility] Address [address] [place] [address] Care Team Providers Care Quick Print Operator Name Role Phone Unavailable Primary Care [...] Vaccine (1 of 2) 2011 Influenza Vaccine 01/16/2025 COVID-19 Vaccine ( - 2023-2 5 season) 2025 RSV Vaccine 60 years and old er and Patients (1 - 1-dose 75+ series) 2036 Hepatitis B Vaccines Aged Out No long er eligible based on patient's age to complete this topic Insurance MEDICAID OUT OF STATE [facility] , [address] [place] [address]
--- OUTSIDE RECORDS SUMMARY | 2025-03-03 11:55 | XMS_ITS | Encounter Summary ---
Author Organization [facility] Address [address] [place] [address] Care Team Providers Care Bushler Name Role Phone Unavailable Primary Care Provider Unavailabl e Encounter Details Date Type Department Care Team (Latest Contact Info) Description 06/23/2020 Lab Requisition [facility] COVID [address] Through [address] [place] [address] [address] [place] [address] Paulo Kay PA-C [address] [place] [address] [phone] Encounter for laboratory testing for COVID-19 virus [...] Radha Mccoy, Ph.D., Laboratory DirectorTests performed at [facility] Nasopharyngeal swab / Unknown 06/23/2020 2:52 PM EST 06/23/2020 2:52 PM EST Narrative OK GONZALEZ - 06/25/2020 11:54 AM EST Performed by [facility] [address] [place] [address], CLIA# [id number] and [place] License# [id number] Paulo Kay PA-C MICROBIOLOGY - GENERAL OR DERABLES Final Result OK GONZALEZ documented in this encounter Visit Diagnoses Diagnosis Encounter for laboratory testing for COVID-19 virus documented in this encounter
== END 2025-03-03 11:12 | disposition home or self-care (01) ==
LOC: HO.HGI 09:26
PROVIDERS: PCP Internal Medicine; Visit Provider Nurse Practitioner Family
DX: K21.9 Gastro-esophageal reflux disease without esophagitis (principal); I10 Essential (primary) hypertension; Z86.0101 Personal history of adenomatous and serrated colon polyps
CPT/HCPCS: 99205

== ENCOUNTER → 2025-03-03 09:25 | Outpatient (BNVA) | payer OTHER, SELFPAY | PROVIDERS: PCP Internal Medicine; Visit Provider Nurse Practitioner Family | DX: Z01.818 Encounter for other preprocedural examination (principal); K21.9 Gastro-esophageal reflux disease without esophagitis; I10 Essential (primary) hypertension; Z86.0100 Personal history of colon polyps, unspecified | CPT/HCPCS: 99202 ==

== ENCOUNTER 2025-03-13 08:42 | Outpatient (AMB) | payer OTHER, SELFPAY ==
--- NOTE | 2025-03-13 08:49 | AM.OFFVISNUR ---
Intake Visit Reasons: b12 Allergies nut - unspecified Allergy (Severe, Verified 03/03/25 09:34) Anaphylaxis Fruit Skin Allergy (Severe, Uncoded 02/13/25 09:43) Anaphylaxis Office Meds cyanocobalamin (vitamin B-12) 1,000 mcg/mL injection solution Performing Provider: Viky Kaur MD Performing [facility] Administered by: Mary Fairbanks LPN on 03/13/25 08:49 Dose Route Admin Location Dispensed Lot Number Expiration Date [facility] Life Insurance Underwriter 1,000 mcg IM right deltoid 1 mL [id number] 05/17/26 53495-844-54 [employer] Total Dispensed Waste 1 mL 0 % Assessment & Plan Assessment & Plan Orders: Orders AMB Vitamin B12 Injection Patient Supplied Today E53.8 - Deficiency of other specified B group vitamins Coding
--- OUTSIDE RECORDS SUMMARY | 2025-03-13 09:15 | XMS_ITS | Encounter Summary ---
Author Organization [facility] Address [address] [place] [address] Care Team Providers Care Head Sulfide Operator Name Role Phone Unavailable Primary Care Provider Unavailabl e Encounter Details Date Type Department Care Team (Latest Contact Info) Description 06/23/2020 Lab Requisition [facility] COVID Drive Through [address] [place] [address] [address] [place] [address] Paulo Kay PA-C [address] [place] [address] [phone] Encounter for laboratory testing for COVID-19 virus [...] Radha Mccoy, Ph.D., Laboratory DirectorTests performed at [facility] Nasopharyngeal swab / Unknown 06/23/2020 2:52 PM EST 06/23/2020 2:52 PM EST Narrative OK GONZALEZ - 06/25/2020 11:54 AM EST Performed by [facility] [address] [place] [address], CLIA# [id number] and [place] License# [id number] Paulo Kay PA-C MICROBIOLOGY - GENERAL OR DERABLES Final Result OK GONZALEZ documented in this encounter Visit Diagnoses Diagnosis Encounter for laboratory testing for COVID-19 virus documented in this encounter
--- OUTSIDE RECORDS SUMMARY | 2025-03-13 09:16 | XMS_ITS | Clinical Summary ---
Author Organization [facility] Address [address] [place] [address] Care Team Providers Care Security Systems Integrator Name Role Phone Unavailable Primary Care Provider [...] this topic Insurance MEDICAID [place] [facility] [place] [address] [place] [address]
== END 2025-03-13 10:04 | disposition home or self-care (01) ==
LOC: HO.HMCH 08:43
PROVIDERS: PCP Internal Medicine
DX: E53.8 Deficiency of other specified B group vitamins (principal)

== ENCOUNTER → 2025-03-13 08:42 | Outpatient (BNVA) | payer OTHER, SELFPAY | PROVIDERS: PCP Internal Medicine | DX: E53.8 Deficiency of other specified B group vitamins (principal) | CPT/HCPCS: 96372; J3420 ==

== ENCOUNTER 2025-03-25 08:18 | Day surgery (SDC) | payer OTHER, SELFPAY ==
--- OUTSIDE RECORDS SUMMARY | 2025-03-10 16:38 | XMS_ITS | Clinical Summary ---
Author Organization [facility] Address [address] [place] [address] Care Team Providers Care Liquefaction Supervisor Name Role Phone Unavailable Primary Care [...] this topic Insurance MED[place] OF [place] [facility] [place] [address] [place] [address]
--- OUTSIDE RECORDS SUMMARY | 2025-03-10 16:38 | XMS_ITS | Encounter Summary ---
Author Organization [facility] Address [address] [place] [address] Care Team Providers Care Drip Molder Name Role Phone Unavailable Primary Care Provider Unavailabl e Encounter Details Date Type Department Care Team (Latest Contact Info) Description 06/23/2020 Lab Requisition [facility] COVID [address] Through [address] [place] [address] [address] [place] [address] Paulo Kay PA-C [address] [place] [address] [phone] Encounter for laboratory testing for COVID-19 virus [...] Radha Mccoy, Ph.D., Laboratory DirectorTests performed at [facility] Nasopharyngeal swab / Unknown 06/23/2020 2:52 PM EST 06/23/2020 2:52 PM EST Narrative OK GONZALEZ - 06/25/2020 11:54 AM EST Performed by [facility] [address] [place] [address], CLIA# [id number] and [place] License# [id number] Paulo Kay PA-C MICROBIOLOGY - GENERAL OR DERABLES Final Result OK GONZALEZ documented in this encounter Visit Diagnoses Diagnosis Encounter for laboratory testing for COVID-19 virus documented in this encounter
[2025-03-23 13:59] VITALS: BMI 33.3
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
[2025-03-25 09:54] VITALS: BMI 33.8
[2025-03-25] MEDS: Lactated Ringers 1,000 ML 100 ML IVCONT (09:55)
[2025-03-25 10:06] VITALS: BMI 33.3
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
[2025-03-25 10:31] VITALS: BP 154/68; PULSE 70; RESP 18; TEMP 36.7; O2SAT 98
--- NOTE | 2025-03-25 11:37 | HO.OPN-COLON ---
Colonoscopy Operative Note Operative Note Date of Service: 03/25/25 Narrative: Operative Information Procedure Description: EGD, Colonoscopy Indication: dysphagia and GERD< screening Anesthesia: MAC FLEXIBLE TRANSORAL UPPER GASTROINTESTINAL ENDOSCOPY AND COLONOSCOPY PROCEDURE NOTE UPPER ENDOSCOPY Consent: Indications for the procedure and potential complications of bleeding, perforation, reaction to medications and missed diagnosis were discussed with the patient and informed consent was obtained. Instrument: Olympus GIF H 190 J mid size upper endoscope Monitoring: Vital signs and clinical assessment, continuous EKG monitoring, Pulse oximetry, Carbon Dioxide monitoring and blood pressure monitoring were done throughout the procedure. Procedure: The patient was placed in the left lateral decubitis position and pre-procedure medications were administered and a bite block was placed. The endoscope was inserted into the mouth and advanced under direct vision to the third part of duodenum. A careful inspection was made as the upper endoscope was withdrawn including a retroflexed examination of the proximal stomach; Findings and interventions are described below. Findings: Larynx:normal Esophagus: GE junction at 40 cm, diaphragm hiatus at 40 cm, mild esophagitis at GEJ, bx taken --balloon dilation done at UES and LES with small tear noted at UES Stomach: granular mucosa. Biopsies were obtained. Grade 2 flap valve on retroflexed examination of the cardia. Duodenum: Normal bulb and descending duodenum, Intervention: Biopsies as noted above, balloon dilation COLONOSCOPY Instrument: Olympus variable stiffness pediatric scope 190L Colonoscopy Monitoring: Vital signs and clinical assessment, continuous EKG monitoring, Pulse oximetry, Carbon Dioxide monitoring and blood pressure monitoring were done throughout the procedure. Colon withdrawal time was 10 minutes. Procedure: The patient was placed in the left lateral decubitis position and pre-procedure medications were administered. After a digital rectal examination of the ano-rectum, the video colonoscope was inserted into the rectum and advanced through the colon to the cecum/TI. The colonoscope was slowly withdrawn in a retrograde panoramic fashion and the colon mucosa was carefully examined including a retroflexed view of the rectum. Findings and interventions are described below. Procedure Difficulty:moderate Findings: Terminal Ileum-normal Cecum:normal Ascending Colon: normal, but ileocecal valve mucosa looked a little prominent, bx was taken, Transverse Colon -normal Descending Colon:normal Sigmoid Colon: mild diverticulosis Rectum: Retroflexion with small internal hemorrhoids, grade I Anorectum - normal Colon preparation: Standish Bowel Preparation Scale Right colon; 1-2 Transverse colon: 2 Left colon; 2 (0 = Unprepared colon segment with mucosa not seen due to solid stool that cannot be cleared. 1 = Portion of mucosa of the colon segment seen, but other areas of the colon segment not well seen due to staining, residual stool and/or opaque liquid. 2 = Minor amount of residual staining, small fragments of stool and/or opaque liquid, but mucosa of colon segment seen well. 3 = Entire mucosa of colon segment seen well with no residual staining, small fragments of stool or opaque liquid) Impression and Post Procedure Diagnosis: Endoscopy Findings: esophageal stricture esophagitis Colonoscopy Findings: diverticulosis internal hemorrhoids Plan: Await Pathology results Repeat Colonoscopy in 1 year if bx negative due to prep on right or earlier if clinically indicated. If bx confirms adenoma then will bring back earlier. High fiber diet leaflet avoid straining at stool, epsom salts and sitz bath, anusol supps or cream GERD precautions Above findings were reviewed with the patient and relevant handouts were provided if indicated.
[2025-03-25 11:42] VITALS: BP 113/53; PULSE 69; RESP 16; TEMP 36.7; O2SAT 95
[2025-03-25 11:57] VITALS: BP 122/61; PULSE 62; RESP 16; O2SAT 99
[2025-03-25 12:07] VITALS: BP 110/65; PULSE 61; RESP 16; TEMP 36.8; O2SAT 98
== END 2025-03-25 12:39 | disposition home or self-care (01) ==
PROVIDERS: PCP Internal Medicine; Visit Provider Internal Medicine Gastroenterology
PROC: (CPT 43239; principal; 2025-03-25 12:40)
DX: Z12.11 Encounter for screening for malignant neoplasm of colon (principal); K21.9 Gastro-esophageal reflux disease without esophagitis; K20.90 Esophagitis, unspecified without bleeding; K22.2 Esophageal obstruction; K57.30 Diverticulosis of large intestine without perforation or abscess without bleeding; K64.8 Other hemorrhoids
CPT/HCPCS: 43239; 43249; 45378; 88305; 88313; 88342; C1726; J2003; J2704

== ENCOUNTER → 2025-03-25 08:18 | Outpatient (BNV) | payer OTHER, SELFPAY | PROVIDERS: PCP Internal Medicine; Visit Provider Internal Medicine Gastroenterology | DX: Z12.11 Encounter for screening for malignant neoplasm of colon (principal); K63.89 Other specified diseases of intestine; K57.30 Diverticulosis of large intestine without perforation or abscess without bleeding; K64.0 First degree hemorrhoids; R13.10 Dysphagia, unspecified; K20.90 Esophagitis, unspecified without bleeding; K22.2 Esophageal obstruction | CPT/HCPCS: 43249; 45380 ==

== ENCOUNTER 2025-04-02 09:27 | Outpatient (AMB) | payer OTHER, SELFPAY ==
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
[2025-04-02 09:48] VITALS: BP 130/90; PULSE 70; TEMP 36.2; O2SAT 97; BMI 33.7
--- OUTSIDE RECORDS SUMMARY | 2025-04-02 10:46 | XMS_ITS | Encounter Summary ---
Author Organization [facility] Address [address] [place] [id number] Care Team Providers Care Executive Administrator Name Role Phone Unavailable Primary Care Provider Unavailabl e Encounter Details Date Type Department Care Team (Latest Contact Info) Description 06/23/2020 Lab Requisition [facility] COVID [address] Through [address] [place] [address] [address] [place] [address] Paulo Kay PA-C [address] [place] [address] [phone] Encounter for laboratory testing for COVID-19 virus [...] Radha Mccoy, Ph.D., Laboratory DirectorTests performed at [facility] Microbiology Nasopharyngeal swab / Unknown 06/23/2020 2:52 PM EST 06/23/2020 2:52 PM EST Narrative OK GONZALEZ - 06/25/2020 11:54 AM EST Performed by [facility] [address] [place] [address], CLIA# [id number] and [place] License# [id number] Paulo Kay PA-C MICROBIOLOGY - GENERAL OR DERABLES Final Result OK GONZALEZ documented in this encounter Visit Diagnoses Diagnosis Encounter for laboratory testing for COVID-19 virus documented in this encounter
--- OUTSIDE RECORDS SUMMARY | 2025-04-02 10:46 | XMS_ITS | Clinical Summary ---
Author Organization [facility] Address [address] [place] [address] Care Team Providers Care Wet Pan Mixer Name Role Phone Unavailable Primary Care Provider [...] - 2023-2 5 season) 2025 RSV Vaccine 50 years and old er and Patients (1 - 1-dose 75+ series) 2036 Hepatitis B Vaccines Aged Out No long er eligible based on patient's age to complete this topic Insurance MEDICAID OUT OF STATE [facility] , [address] [place] [address]
== END 2025-04-02 10:27 | disposition home or self-care (01) ==
LOC: HO.HMCH 09:28
PROVIDERS: PCP Internal Medicine; Visit Provider Internal Medicine
DX: I10 Essential (primary) hypertension (principal); E78.00 Pure hypercholesterolemia, unspecified; E66.9 Obesity, unspecified; Z68.33 Body mass index [BMI] 33.0-33.9, adult; R73.02 Impaired glucose tolerance (oral); K21.9 Gastro-esophageal reflux disease without esophagitis; D36.9 Benign neoplasm, unspecified site; M96.1 Postlaminectomy syndrome, not elsewhere classified

== ENCOUNTER → 2025-04-02 09:27 | Outpatient (BNVA) | payer OTHER, SELFPAY | PROVIDERS: PCP Internal Medicine; Visit Provider Internal Medicine | DX: I10 Essential (primary) hypertension (principal); E78.00 Pure hypercholesterolemia, unspecified; R73.02 Impaired glucose tolerance (oral); E66.9 Obesity, unspecified; K21.9 Gastro-esophageal reflux disease without esophagitis; D36.9 Benign neoplasm, unspecified site; M96.1 Postlaminectomy syndrome, not elsewhere classified; K22.2 Esophageal obstruction; R30.0 Dysuria | CPT/HCPCS: 99212 ==

== ENCOUNTER 2025-04-05 10:07 | Emergency (ER) | payer OTHER, SELFPAY ==
--- NOTE | ~2025-04-05 | XR_ITS ---
CLINICAL HISTORY: LAC TO L INDEX FINGER Radiographs of the left 2nd digit, 3 views Comparison: None available Findings: No fracture or dislocation. Mild degenerative change. Soft tissue swelling /laceration. Impression: No fracture. This document has been electronically signed by: Kinsey Morales MD on 04/05/2025 13:29:57
[2025-04-05 10:10] VITALS: BP 196/84; PULSE 75; RESP 18; TEMP 36.2; O2SAT 94; BMI 33.6
[2025-04-05 10:41] VITALS: BP 196/84; PULSE 75; RESP 18; TEMP 36.2; O2SAT 94
--- NOTE | 2025-04-05 10:45 | PC.NURSE ---
64 F presents to ED with L index finger cut while cutting up chicken at turkey at home. Laceration was cleaned and wrapped with gauze in triage, no active bleeding. CSMs present, c/o 10/10 throbbing pain in L index finger. Pt denies any CP or SOB. RR even and unlabored. Pt ambulates with a cane at times but walked in today holding on to her daughter.
--- OUTSIDE RECORDS SUMMARY | 2025-04-05 10:51 | XMS_ITS | Clinical Summary ---
Author Organization [facility] Address [address] [place] [address] Care Team Providers Care Bridal Gown Fitter Name Role Phone Unavailable Primary Care Provider [...] this topic Insurance MEDICAID OUT OF STATE [facility] , [address] [place] [address]
--- OUTSIDE RECORDS SUMMARY | 2025-04-05 10:51 | XMS_ITS | Encounter Summary ---
Author Organization [facility] Address [address] [place] [id number] Care Team Providers Care Tactical Debriefer Officer Name Role Phone Unavailable Primary Care Provider Unavailabl e Encounter Details Date Type Department Care Team (Latest Contact Info) Description 06/23/2020 Lab Requisition [facility] COVID Drive Through [address] [place] [address] [address] [place] [address] Paulo Kay PA-C [address] [place] [address] [phone] Encounter for laboratory testing for COVID-19 virus [...] Radha Mccoy, Ph.D., Laboratory DirectorTests performed at [facility] Nasopharyngeal swab / Unknown 06/23/2020 2:52 PM EST 06/23/2020 2:52 PM EST Narrative OK GONZALEZ - 06/25/2020 11:54 AM EST Performed by [facility] [address] [place] [address], CLIA# [id number] and [place] License# [id number] Paulo Kay PA-C MICROBIOLOGY - GENERAL OR DERABLES Final Result OK GONZALEZ documented in this encounter Visit Diagnoses Diagnosis Encounter for laboratory testing for COVID-19 virus documented in this encounter
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
[2025-04-05] MEDS: Lidocaine HCl 1 % MPF 5 ML VIAL INFILTRATI (11:13)
--- NOTE | 2025-04-05 11:21 | PC.NURSE ---
Lidocaine at bedside- Tdap not given as pt rec in 2021 and is UTD- PA aware
[2025-04-05 12:32] VITALS: BP 156/64; PULSE 69; RESP 18; TEMP 36.7; O2SAT 97
[2025-04-05 13:30] VITALS: BP 156/64; PULSE 69; RESP 18; TEMP 36.7; O2SAT 97
== END 2025-04-05 13:31 | disposition home or self-care (01) ==
PROVIDERS: Emergency Provider Emergency Medicine; PCP Internal Medicine
DX: S61.211A Laceration without foreign body of left index finger without damage to nail, initial encounter (principal); W26.0XXA Contact with knife, initial encounter; Y93.9 Activity, unspecified; Y92.9 Unspecified place or not applicable
CPT/HCPCS: 12001; 73140; 99284; J2003

== ENCOUNTER → 2025-04-05 11:12 | Outpatient (BNV) | payer OTHER, SELFPAY | PROVIDERS: Emergency Provider Emergency Medicine; PCP Internal Medicine; Visit Provider Radiology Diagnostic Radiology | DX: S61.211A Laceration without foreign body of left index finger without damage to nail, initial encounter (principal) | CPT/HCPCS: 73140 ==

== ENCOUNTER 2025-04-08 13:24 | Outpatient (AMB) | payer OTHER, SELFPAY ==
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
[2025-04-08 13:40] VITALS: BMI 33.6
--- OUTSIDE RECORDS SUMMARY | 2025-04-08 19:03 | XMS_ITS | Encounter Summary ---
Author Organization [facility]ly [facility] Address [address] [place] [id number] Care Team Providers Care Material Requirements Planning Manager Name Role Phone Unavailable Primary Care Provider Unavailabl e Encounter Details Date Type Department Care Team (Latest Contact Info) Description 06/23/2020 Lab Requisition [facility] [address] Through [address] [place] [address] [address] [place] [address] Paulo Kay PA-C [address] [place] [phone] Encounter for laboratory testing for COVID-19 virus [...] Radha Mccoy, Ph.D., Laboratory DirectorTests performed at [facility] Microbiology Nasopharyngeal swab / Unknown 06/23/2020 2:52 PM EST 06/23/2020 2:52 PM EST Narrative OK GONZALEZ - 06/25/2020 11:54 AM EST Performed by [facility] [address] [place] [address], CLIA# [id number] and [place] License# [id number] Paulo Kay PA-C MICROBIOLOGY - GENERAL OR DERABLES Final Result OK GONZALEZ documented in this encounter Visit Diagnoses Diagnosis Encounter for laboratory testing for COVID-19 virus documented in this encounter
--- OUTSIDE RECORDS SUMMARY | 2025-04-08 19:03 | XMS_ITS | Clinical Summary ---
Author Organization [facility] Address [address] [place] [address] Care Team Providers Care Van Loader Name Role Phone Unavailable Primary Care Provider [...] this topic Insurance MEDICAID OUT OF STATE [facility] , [address] [place] [id number]
== END 2025-04-08 14:02 | disposition home or self-care (01) ==
LOC: HO.HOS 13:25
PROVIDERS: PCP Internal Medicine; Visit Provider Orthopaedic Surgery
DX: S61.211A Laceration without foreign body of left index finger without damage to nail, initial encounter (principal)
CPT/HCPCS: 99203

== ENCOUNTER → 2025-04-08 13:24 | Outpatient (BNVA) | payer OTHER, SELFPAY | PROVIDERS: PCP Internal Medicine; Visit Provider Orthopaedic Surgery | DX: S61.211A Laceration without foreign body of left index finger without damage to nail, initial encounter (principal); W26.0XXA Contact with knife, initial encounter; Y93.G3 Activity, cooking and baking; Y92.000 Kitchen of unspecified non-institutional (private) residence as the place of occurrence of the external cause; Y99.9 Unspecified external cause status | CPT/HCPCS: 99202 ==

== ENCOUNTER 2025-04-13 08:44 | Outpatient (AMB) | payer OTHER, SELFPAY ==
--- NOTE | 2025-04-13 08:54 | AM.OFFVISNUR ---
Intake Visit Reasons: B12 Shot Allergies nut - unspecified Allergy (Severe, Verified 04/08/25 13:49) Anaphylaxis Fruit Skin Allergy (Severe, Uncoded 04/08/25 13:49) Anaphylaxis Office Meds cyanocobalamin (vitamin B-12) 1,000 mcg/mL injection solution Performing Provider: Viky Kaur MD [place] [facility] [place] [facility] Administered by: Mary Fairbanks LPN on 04/13/25 08:54 Dose Route Admin Location Dispensed Lot Number Expiration Date [facility] Staff Editor 1,000 mcg IM right deltoid 1 mL [id number] 05/17/26 43127-899-30 [employer] Total Dispensed Waste 1 mL 0 % Assessment & Plan Assessment & Plan Orders: Orders AMB Vitamin B12 Injection Patient Supplied Today E53.8 - Deficiency of other specified B group vitamins Coding
--- OUTSIDE RECORDS SUMMARY | 2025-04-13 09:18 | XMS_ITS | Clinical Summary ---
Author Organization [facility] Address [address] [place] [address] Care Team Providers Care Family Centered Specialist Name Role Phone Unavailable Primary Care Provider [...] this topic Insurance MEDICAID OUT OF STATE [facility] [place] [address] [place] [address]
--- OUTSIDE RECORDS SUMMARY | 2025-04-13 09:18 | XMS_ITS | Encounter Summary ---
Author Organization [facility] Address [address] [place] [id number] Care Team Providers Care Card Game Operator Name Role Phone Unavailable Primary Care Provider Unavailabl e Encounter Details Date Type Department Care Team (Latest Contact Info) Description 06/23/2020 Lab Requisition [facility] COVID Drive Through [address] [place] [address] [address] [place] [address] Paulo Kay PA-C [address] [place] [address] [phone] Encounter for laboratory testing for COVID-19 virus [...] Radha Mccoy, Ph.D., Laboratory DirectorTests performed at [facility] Nasopharyngeal swab / Unknown 06/23/2020 2:52 PM EST 06/23/2020 2:52 PM EST Narrative OK GONZALEZ - 06/25/2020 11:54 AM EST Performed by [facility] [address] [place] [address], CLIA# [id number] and [place] License# [id number] Paulo Kay PA-C MICROBIOLOGY - GENERAL OR DERABLES Final Result OK GONZALEZ documented in this encounter Visit Diagnoses Diagnosis Encounter for laboratory testing for COVID-19 virus documented in this encounter
== END 2025-04-13 08:55 | disposition home or self-care (01) ==
LOC: HO.HMCH 08:45
PROVIDERS: PCP Internal Medicine; Visit Provider Internal Medicine
DX: E53.8 Deficiency of other specified B group vitamins (principal)

== ENCOUNTER → 2025-04-13 08:44 | Outpatient (BNVA) | payer OTHER, SELFPAY | PROVIDERS: PCP Internal Medicine; Visit Provider Internal Medicine | DX: E53.8 Deficiency of other specified B group vitamins (principal) | CPT/HCPCS: 96372; J3420 ==

== ENCOUNTER 2025-04-14 08:17 | Outpatient (AMB) | payer OTHER, SELFPAY ==
[2025-04-14 08:26] VITALS: BMI 33.6
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
--- OUTSIDE RECORDS SUMMARY | 2025-04-14 08:50 | XMS_ITS | Clinical Summary ---
Author Organization [facility] Address [address] [place] [address] Care Team Providers Care Marine Insulator Name Role Phone Unavailable Primary Care Provider [...] this topic Insurance MEDICAID OUT OF STATE [facility] [place] , [address] [place] [address]
--- OUTSIDE RECORDS SUMMARY | 2025-04-14 08:50 | XMS_ITS | Encounter Summary ---
Author Organization [facility] Address [address] [place] [address] Care Team Providers Care Pulp Machine Operator Name Role Phone Unavailable Primary Care Provider Unavailabl e Encounter Details Date Type Department Care Team (Latest Contact Info) Description 06/23/2020 Lab Requisition [facility] COVID Drive Through [address] [place] [address] [address] [place] [address] Paulo Kay PA-C [address] [place] [address] [phone] Encounter for laboratory testing for COVID-19 virus [...] Radha Mccoy, Ph.D., Laboratory DirectorTests performed at [email or web address] Microbiology Nasopharyngeal swab / Unknown 06/23/2020 2:52 PM EST 06/23/2020 2:52 PM EST Narrative OK GONZALEZ - 06/25/2020 11:54 AM EST Performed by [facility] [address] [place] [address], CLIA# [id number] and [place] License# [id number] Paulo Kay PA-C MICROBIOLOGY - GENERAL OR DERABLES Final Result OK GONZALEZ documented in this encounter Visit Diagnoses Diagnosis Encounter for laboratory testing for COVID-19 virus documented in this encounter
== END 2025-04-14 08:43 | disposition home or self-care (01) ==
LOC: HO.HOS 08:18
PROVIDERS: PCP Internal Medicine
DX: S61.211A Laceration without foreign body of left index finger without damage to nail, initial encounter (principal)
CPT/HCPCS: 99213

== ENCOUNTER → 2025-04-14 08:17 | Outpatient (BNVA) | payer OTHER, SELFPAY | PROVIDERS: PCP Internal Medicine | DX: Z48.02 Encounter for removal of sutures (principal); S61.211A Laceration without foreign body of left index finger without damage to nail, initial encounter; W26.0XXA Contact with knife, initial encounter; Y93.G3 Activity, cooking and baking; Y92.000 Kitchen of unspecified non-institutional (private) residence as the place of occurrence of the external cause; Y99.9 Unspecified external cause status | CPT/HCPCS: 99212 ==

== ENCOUNTER 2025-05-21 08:26 | Outpatient (AMB) | payer OTHER, SELFPAY ==
--- NOTE | 2025-05-21 08:34 | AM.OFFVISNUR ---
Intake Visit Reasons: B12 Shot Allergies nut - unspecified Allergy (Severe, Verified 04/14/25 08:38) Anaphylaxis Fruit Skin Allergy (Severe, Uncoded 04/14/25 08:38) Anaphylaxis Office Meds cyanocobalamin (vitamin B-12) 1,000 mcg/mL injection solution Performing Provider: Viky Kaur MD [facility] [place] [facility] Administered by: Mary Fairbanks LPN on 05/21/25 08:34 Dose Route Admin Location Dispensed Lot Number Expiration Date [facility] [employer] 1,000 mcg IM right deltoid 1 mL [id number] 05/17/26 95532-905-63 [employer] Total Dispensed Waste 1 mL 0 % Assessment & Plan Assessment & Plan Orders: Orders AMB Vitamin B12 Injection Patient Supplied Today E53.8 - Deficiency of other specified B group vitamins Medications: Refilled cyanocobalamin (vitamin B-12) 1,000 mcg IM Q4W 2 mL 2RF 30 days E53.8 - Deficiency of other specified B group vitamins Coding
== END 2025-05-21 08:35 | disposition home or self-care (01) ==
LOC: HO.HMCH 08:27
PROVIDERS: PCP Internal Medicine; Visit Provider Internal Medicine
DX: E53.8 Deficiency of other specified B group vitamins (principal)

== ENCOUNTER → 2025-05-21 08:26 | Outpatient (BNVA) | payer OTHER, SELFPAY | PROVIDERS: PCP Internal Medicine; Visit Provider Internal Medicine | DX: E53.8 Deficiency of other specified B group vitamins (principal) | CPT/HCPCS: 96372; J3420 ==

== ENCOUNTER 2025-05-29 09:51 | Outpatient (REF) | payer OTHER, SELFPAY ==
--- NOTE | ~2025-05-29 | MM_ITS ---
EXAMINATION: MM SCREENING DIGITAL BREAST TOMOSYNTHESIS, BILATERAL CLINICAL INFORMATION: Screening. Asymptomatic. COMPARISON: Mammography: Comparison is made with available priors TECHNIQUE: Digital breast mammography with tomosynthesis is performed in both the craniocaudal and mediolateral oblique views along with computer-aided detection (CAD). FINDINGS: There are scattered areas of fibroglandular density. There are no significant masses, abnormal calcifications, or other abnormalities. MM/MM tomosynthesis screening BI IMPRESSION: No mammographic evidence of malignancy. ASSESSMENT: BI-RADS Category 1: Negative RECOMMENDATION: Routine annual mammography screening. 1 year F/U This examination should not preclude the clinical evaluation of a suspicious palpable abnormality. This patient's information was entered into a reminder system with a target due date for their next mammogram. Electronically signed by: Albania Jolley DO 06/02/2025 02:12 PM [facility]
== END 2025-05-29 09:52 | disposition home or self-care (01) ==
LOC: HO.MAMMO 09:51
PROVIDERS: PCP Internal Medicine; Visit Provider Internal Medicine
DX: Z12.31 Encounter for screening mammogram for malignant neoplasm of breast (principal)
CPT/HCPCS: 77063; 77067

== ENCOUNTER → 2025-05-29 10:15 | Outpatient (BNV) | payer OTHER, SELFPAY | PROVIDERS: PCP Internal Medicine; Visit Provider Internal Medicine | DX: Z12.31 Encounter for screening mammogram for malignant neoplasm of breast (principal) | CPT/HCPCS: 77063; 77067 ==